=== PATIENT | female | born 1955 | race Caucasian/White ===

== ENCOUNTER → 2018-05-07 11:08 | Outpatient (CLI) | payer BC, SELFPAY ==
--- NOTE | 2018-05-07 11:22 | EKG12_ITS ---
Test Reason : PRE-OP Blood Pressure : / mmHG Vent. Rate : 065 BPM Atrial Rate : 065 BPM P-R Int : 126 ms QRS Dur : 086 ms QT Int : 444 ms P-R-T Axes : 027 008 035 degrees QTc Int : 461 ms Normal sinus rhythm Minimal voltage criteria for LVH, may be normal variant Borderline ECG Confirmed by AMINTA MOORE, SUSAN ([id number]), technical writer and editor GEORGI ISAACS ([id number] on 05/08/2018 3:26:32 PM Referred By: Christophe Loera Confirmed By:SUSAN LEMOS MD
[2018-05-07 12:25] LABS: Hematocrit 42.8 % (37-47); Hemoglobin 14.1 g/dl (12.0-15.0); Mean Corp Hgb Conc 32.9 g/gl (32-36); Mean Corpuscular Hgb 28.5 pg (27.0-32.0); Mean Corpuscular Volume 86.6 fL (81-99); Mean Platelet Vol. 9.2 fl (6.2-12.0); Platelet Count 304 K/mm3 (150-450); RBC Distribution Width CV 12.6 % (11.6-14.6); RBC Distribution Width SD 39.5 fl (35.1-43.9); Red Blood Count 4.94 M/mm3 (4.2-5.4); White Blood Count 7.5 K/mm3 (4.4-11.0)
[2018-05-07 12:29] LABS: Scan Indicated on CBC? Y/N NO
[2018-05-07 12:48] LABS: Anion Gap 8 (5-15); BUN 18 mg/dL (7-18); BUN/Creat Ratio 20.8 RATIO (10-20); Calcium,Total 9.1 mg/dL (8.5-10.1); Chloride 106 mmol/L (98-107); Creatinine, Serum 0.87 mg/dL (0.55-1.02); EST Glomerular Filtration Rate 70 mL/min (>60); Est Glom Filt Rate - Afr Amer 85 mL/min (>60); Glucose 103 mg/dL (74-106); Potassium 4.1 mmol/L (3.5-5.1); Sodium Level 144 mmol/L (136-145)
== END ==
PROVIDERS: Family Provider Family Medicine; PCP Family Medicine; Referring Provider Physician Assistant; Visit Provider Physician Assistant
DX: Z01.818 Encounter for other preprocedural examination (principal); Z01.810 Encounter for preprocedural cardiovascular examination
CPT/HCPCS: 36415; 80048; 85027; 93005

== ENCOUNTER 2018-06-09 18:50 | Emergency (ER) | payer BC, SELFPAY ==
[2018-06-09 18:55] VITALS: BP 158/95; PULSE 96; RESP 15; TEMP 37; O2SAT 95; BMI 32.6
[2018-06-09] MEDS: Cephalexin 250 MG Capsule 500 MG PO (19:12)
--- NOTE | 2018-06-09 19:12 | RAD_ITS ---
STUDY: X-RAY - LEFT HAND REASON FOR EXAM: Female, 63 years old. Puncture wound TECHNIQUE: 3 view(s) of the hand. COMPARISON: None. FINDINGS: Normal radiocarpal articulation. Normal distal radioulnar joint. Normal visualized carpal bones. Normal carpal articulations Normal carpometacarpal articulation of the thumb. Normal second through fifth carpometacarpal joints. Normal metacarpi. Normal metacarpophalangeal joint of the thumb. Normal interphalangeal joint of the thumb. Normal proximal and distal phalanges of the thumb. Normal metacarpophalangeal joints of the second through fifth fingers. Normal proximal interphalangeal joints of the second through fifth fingers. There are mild degenerative changes of the DIP joints. Normal phalanges of the second through fifth fingers. The soft tissue structures are unremarkable. RAD/Hand Min 3 Views IMPRESSION: Mild degenerative changes. No radiopaque foreign body within the soft tissues or acute fracture Electronically Signed: Blaise Rodarte MD at 19:38 EST , Service support ,
--- NOTE | 2018-06-09 19:39 | ED.DCSUM_ITS ---
- ER Visit Summary Date of Service: 06/09/18 Chief Complaint: Left hand pain History of Present Illness: The patient is a [address] Bae. She reports that she was cutting fish and stabbed the palm of her left hand with a paring knife. States that she has a sharp pain 7-10 at worst 4-10 currently. Is worsened by opening. Is relieved by rest. Denies any numbness distally. Her tetanus is up-to-date. Physical Examination: Vitals: Stable. Afebrile. General: Well-nourished and well-developed. Head: Normocephalic atraumatic. Neck: Supple, no lymphadenopathy. No JVD. Nontender. Cardiovascular: Regular rate and rhythm. No murmurs. Respiratory: No respiratory distress. Clear to auscultation bilaterally. Abdominal: Soft, nontender, nondistended, normal bowel sounds. No guarding, rebound, or peritoneal signs. Back: Nontender. Extremities: 1 cm laceration to the palm of her hand. There is no bleeding. She is neurovascular intact. She is able to flex her MCP, PIP, and DIP joints against resistance., no edema. Skin: Normal color, no rash. Neurologic: Alert and oriented ?3. Cranial nerves II through XII are intact. Normal strength and sensation. Psych: Normal affect. Test Results: X-ray shows no acute disease. Emergency Department Course and Treatment: Had a prolonged discussion with patient about treatment options for this. She is opted to let this heal by secondary intention. I do feel that a reasonable course of action. I also discussed with her the risk of infection. Given the location of this and the potential serious etiology of an infection she was given a dose of Keflex. Treatment Plan: Patient be discharged on Keflex. Instructed follow-up Dr. Bae in 2 days for wound check. Return to the emergency department for any worsening symptoms. Disposition: To home in improved and stable condition. Impression: 1. Laceration left palm, 1 cm, not repaired. This note was generated with [employer] software. It may contain incorrect words, spelling, and punctuation that were not noted in review of the chart prior to signing ED Disposition - Plan for ED Patient: Disposition: Home or Assisted Living Instructions: ED Laceration Hand Prescriptions: Cephalexin [Keflex] 500 mg PO Q6 #28 capsule Referrals: Merary Jacobsen MD [Primary Care Provider] - 2 Days for wound check Kaveh Cardona MD [STAFF PHYSICIAN] - 3-5 Days if not improving
== END 2018-06-09 20:36 | disposition home or self-care (01) ==
PROVIDERS: Emergency Provider Emergency Medicine; Family Provider Family Medicine; PCP Family Medicine
DX: S61.412A Laceration without foreign body of left hand, initial encounter (principal); W29.1XXA Contact with electric knife, initial encounter; Y93.89 Activity, other specified; Y92.9 Unspecified place or not applicable; J45.909 Unspecified asthma, uncomplicated
CPT/HCPCS: 73130; 99282

== ENCOUNTER → 2019-01-02 12:05 | Outpatient (CLI) | payer BC, SELFPAY ==
--- NOTE | 2019-01-02 12:08 | RAD_ITS ---
STUDY: X-RAY - RIGHT KNEE REASON FOR EXAM: Recent right knee pain, swelling. TECHNIQUE: 4 view(s) of the knee. COMPARISON: None. FINDINGS: Normal visualized distal femur. Normal visualized proximal tibia and fibula. Normal proximal tibiofibular articulation. Normal medial femorotibial compartment. Normal lateral femorotibial compartment. There are very small marginal osteophytes and mild joint space narrowing of the patellofemoral articulation. There is a small joint effusion. RAD/Knee 4 or More Views IMPRESSION: Mild patellofemoral arthrosis. Small joint effusion. Electronically Signed: Jones Gastelum MD at 12:34 EDT Tel , Service support ,
== END ==
PROVIDERS: Family Provider Family Medicine; PCP Family Medicine; Referring Provider Family Medicine; Visit Provider Family Medicine
DX: M17.11 Unilateral primary osteoarthritis, right knee (principal)
CPT/HCPCS: 73564

== ENCOUNTER 2019-02-20 14:46 | Emergency (ER) | payer BC, SELFPAY ==
[2019-02-20 14:47] VITALS: BP 133/78; PULSE 98; RESP 16; TEMP 36.9; O2SAT 97; BMI 34.0
--- NOTE | 2019-02-20 15:23 | RAD_ITS ---
STUDY: X-RAY - RIGHT KNEE REASON FOR EXAM: Female, 63 years old. Pain along the medial and posterior knee joint following a walk. TECHNIQUE: 4 view(s) of the knee. COMPARISON: Comparison is made with prior study dated December 23, 2018. FINDINGS: Normal visualized distal femur. Normal visualized proximal tibia and fibula. Normal proximal tibiofibular articulation. Normal medial femorotibial compartment. Normal lateral femorotibial compartment. Normal patellofemoral articulation. Tiny joint effusion. RAD/Knee 4 or More Views IMPRESSION: Tiny joint effusion. Electronically Signed: Jett Muñoz, at 15:49 EST , Service support ,
--- NOTE | 2019-02-20 15:24 | ED.DCSUM_ITS ---
- ER Visit Summary Date of Service: 02/20/19 Chief Complaint: Right knee pain History of Present Illness: The patient is a 63 F states that she was walking into work today when she was in full right leg extension during her gait she felt a pop in the posterior aspect of her knee. Since that time she said p ainful weightbearing and ambulation. She denies any swelling. No history of Rothman's cyst. She notes she was told she had some arthritis in the knee. She is seen Dr. Packer in the past for a shoulder surgery. She denies any recent episodes of her knee locking up or pain with squatting/stairs. Physical Examination: Afebrile vital signs stable Gen: Well-nourished well-developed Head: Normocephalic atraumatic Eyes: Perrl EOMI ENT: TMs clear no rhinorrhea moist mucous membranes Neck: Supple no lymphadenopathy no JVD nontender CVS: Regular rate rhythm no murmurs normal S1-S2 Respiratory: No distress clear to auscultation bilaterally chest nontender Abdomen: Soft nontender nondistended normal bowel sounds no masses Back: Nontender Extremity: There is no joint effusion. No pain with ligamentous testing. She has some mild tenderness to palpation the posterior medial aspect of the knee. There is no significant swelling/cyst that I can appreciate. Skin: Normal color no rash Neuro: alert orientated ?3 CN II-XII intact normal strength sensation reflexes gait cerebellar Psych: Normal affect normal mood Emergency Department Course and Treatment: Knee films were obtained. It was read by radiology as a small joint effusion. There is a small well-rounded piece of bone in the posterior aspect. At this point patient has a brace at home that she has worn in the past. I will let her use that along with ice and anti-inflammatories. Pain is persisting more than 10 to 14 days she should follow-up with Dr. Packer. Impression: 1. Right knee pain This note was generated with [employer] dictation software. It may contain incorrect words, spelling, and punctuation that were not noted in review of the chart prior to signing ED Disposition - Plan for ED Patient: Disposition: Home or Assisted Living Instructions: KNEE PAIN, Uncertain Cause Referrals: Gopi Packer, [STAFF PHYSICIAN] - 10-14 Days if not better
[2019-02-20 16:21] VITALS: BP 152/77; PULSE 61; RESP 17; O2SAT 96
== END 2019-02-20 16:24 | disposition home or self-care (01) ==
PROVIDERS: Emergency Provider Emergency Medicine; Family Provider Family Medicine; PCP Family Medicine
DX: M25.561 Pain in right knee (principal)
CPT/HCPCS: 73564; 99283

== ENCOUNTER → 2019-04-30 12:46 | Outpatient (CLI) | payer BC, MEDICARE, SELFPAY ==
--- NOTE | 2019-04-30 13:15 | EKG12_ITS ---
Test Reason : PREOP Blood Pressure : / mmHG Vent. Rate : 076 BPM Atrial Rate : 076 BPM P-R Int : 144 ms QRS Dur : 086 ms QT Int : 418 ms P-R-T Axes : 062 041 048 degrees QTc Int : 470 ms Normal sinus rhythm Normal ECG Confirmed by DOMINGO MOORE, ALEX ([id number]), editor house organ NENA BOB ([id number]) on 05/01/2019 2:19:09 PM Referred By: Alexsandra Schaffer Confirmed By:JACQUES LANE MD
--- NOTE | 2019-04-30 13:28 | RAD_ITS ---
STUDY: X-RAY CHEST REASON FOR EXAM: Female, 63 years old. H/O OF ASTHMA. CHECK BEFORE SURGERY ON THE . TECHNIQUE: Frontal and lateral views of the chest. COMPARISON: 03/27/2013 FINDINGS: The lungs are clear and expanded. There is no demonstrated pleural abnormality. Normal size heart. Normal mediastinum and griffin. Normal visualized pulmonary arteries. Normal visualized aortic arch and descending thoracic aorta. Normal visualized thoracic spine. Normal visualized ribs, clavicles, and shoulders. There is no demonstrated abnormality of the visualized soft tissue structures of the upper abdomen. RAD/Chest PA and Lateral IMPRESSION: Normal x-ray examination of the chest. Electronically Signed: Jericho Jaimes MD at 0:42 EST Tel , Service support ,
[2019-04-30 13:31] LABS: Absolute Lymphocyte Count 1.62 X10^3/uL (0.83-4.51); Absolute Neutrophil Count 4.1 X10^3/uL (2.0-7.7); Basophil# 0.04 X10^3/uL; Basophil% 0.6 % (0-1); Eosinophil# 0.53 X10^3/uL; Eosinophils% 7.9 % (0-5); Hematocrit 39.7 % (37-47); Hemoglobin 12.9 g/dL (12.0-15.0); Lymphocyte # 1.62 X10^3/ul (4.0); Lymphocyte % 24.1 % (19-41); Mean Corp Hgb Conc 32.5 g/dL (32-36); Mean Corpuscular Hgb 28.3 pg (27.0-32.0); Mean Corpuscular Volume 87.1 fL (81-99); Mean Platelet Vol. 8.7 fl (6.2-12.0); Monocyte# 0.45 X10^3/uL; Monocyte% 6.7 % (0-10); NRBC Flagged by Analyzer 0 % (0-5); Neutrophil # 4.05 X10^3/uL (2.7-7.7); Neutrophil % 60.1 % (47-70); Platelet Count 257 K/mm3 (150-450); RBC Distribution Width CV 12.4 % (11.6-14.6); RBC Distribution Width SD 39.7 fl (35.1-43.9); Red Blood Count 4.56 M/mm3 (4.2-5.4); White Blood Count 6.7 K/mm3 (4.4-11.0)
[2019-04-30 13:50] LABS: Anion Gap 5 (5-15); BUN 17 mg/dL (7-18); BUN/Creat Ratio 17.1 RATIO (10-20); Calcium,Total 9.1 mg/dL (8.5-10.1); Chloride 108 mmol/L (98-107); EST Glomerular Filtration Rate 60 mL/min (>60); Est Glom Filt Rate - Afr Amer 72 mL/min (>60); Glucose 119 mg/dL (74-106); Potassium 3.9 mmol/L (3.5-5.1); Sodium Level 141 mmol/L (136-145)
== END ==
PROVIDERS: PCP Family Medicine; Referring Provider Registered Nurse; Visit Provider Registered Nurse
DX: Z01.818 Encounter for other preprocedural examination (principal); Z01.810 Encounter for preprocedural cardiovascular examination
CPT/HCPCS: 36415; 71046; 80048; 85025; 93005

== ENCOUNTER 2019-08-22 18:34 | Emergency (ER) | payer BC, MEDICARE, SELFPAY ==
[2019-08-22 18:36] VITALS: BP 152/64; PULSE 124; RESP 17; TEMP 36.6; O2SAT 97; BMI 30.8
--- NOTE | 2019-08-22 18:58 | EKG12_ITS ---
Test Reason : SOB Blood Pressure : / mmHG Vent. Rate : 109 BPM Atrial Rate : 109 BPM P-R Int : 142 ms QRS Dur : 092 ms QT Int : 338 ms P-R-T Axes : 059 015 058 degrees QTc Int : 455 ms Sinus tachycardia with occasional Premature ventricular complexes Nonspecific ST and T wave abnormality Abnormal ECG Confirmed by RIZWAN MOORE, SHO ([id number]), associate entertainment editor GEORGI ISAACS ([id number]) on 08/25/2019 3:22:40 PM Referred By: JOHN/AUDREY Confirmed By:SHO ASTORGA MD
--- NOTE | 2019-08-22 19:06 | RAD_ITS ---
STUDY: X-RAY CHEST REASON FOR EXAM: Female, 64 years old. INCREASING COUGH AND SHORTNESS OF BREATH TECHNIQUE: Single frontal view of the chest. COMPARISON: 04/30/2019 FINDINGS: The lungs are clear and expanded. There is no demonstrated pleural abnormality. Normal size heart. Normal mediastinum and griffin. Normal visualized pulmonary arteries. Normal visualized aortic arch and descending thoracic aorta. Normal visualized thoracic spine. Normal visualized ribs, clavicles, and shoulders. There is no demonstrated abnormality of the visualized soft tissue structures of the upper abdomen. RAD/Chest 1 View (Portable) IMPRESSION: Normal x-ray examination of the chest. Electronically Signed: Jericho Jaimes MD at 19:52 EDT Tel , Service support ,
[2019-08-22] MEDS: Acetaminophen 500 MG Tablet 1000 MG PO (19:17)
[2019-08-22 19:18] VITALS: O2SAT 96
[2019-08-22] MEDS: 0.9% Normal Saline 1,000 ML 125 ML IV (19:18)
[2019-08-22 19:28] LABS: Absolute Lymphocyte Count 0.91 X10^3/uL (0.83-4.51); Absolute Neutrophil Count 11.9 X10^3/uL (2.0-7.7); Basophil# 0.03 X10^3/uL; Basophil% 0.2 % (0-1); Eosinophil# 0.08 X10^3/uL; Eosinophils% 0.6 % (0-5); Hematocrit 39.3 % (37-47); Hemoglobin 13.1 g/dL (12.0-15.0); Lymphocyte # 0.91 X10^3/ul (4.0); Lymphocyte % 6.3 % (19-41); Mean Corp Hgb Conc 33.3 g/dL (32-36); Mean Corpuscular Hgb 28.4 pg (27.0-32.0); Mean Corpuscular Volume 85.1 fL (81-99); Mean Platelet Vol. 9.1 fl (6.2-12.0); Monocyte# 1.37 X10^3/uL; Monocyte% 9.6 % (0-10); NRBC Flagged by Analyzer 0 % (0-5); Neutrophil # 11.89 X10^3/uL (2.7-7.7); Neutrophil % 82.9 % (47-70); Platelet Count 210 K/mm3 (150-450); RBC Distribution Width SD 39.9 fl (35.1-43.9); Red Blood Count 4.62 M/mm3 (4.2-5.4); White Blood Count 14.3 K/mm3 (4.4-11.0)
[2019-08-22 19:31] VITALS: BP 121/75; PULSE 111; RESP 20; TEMP 37.3; O2SAT 95
[2019-08-22 19:45] LABS: ALB/GLOB Ratio 0.9 RATIO (0.9-2.4); AST(SGOT) 27 U/L (15-37); Alanine Aminotransfer ALT/SGPT 26 U/L (13-56); Albumin, Serum 3.7 g/dL (3.2-5.0); Alkaline Phosphatase 105 U/L (45-117); Anion Gap 6 (5-15); BUN 18 mg/dL (7-18); BUN/Creat Ratio 11.8 RATIO (10-20); Calcium,Total 9.2 mg/dL (8.5-10.1); Chloride 106 mmol/L (98-107); Creatinine, Serum 1.52 mg/dL (0.55-1.02); EST Glomerular Filtration Rate 36 mL/min (>60); Est Glom Filt Rate - Afr Amer 44 mL/min (>60); Estimated Creatinine Clearance 30.52 ml/min; Globulin 4.3 g/dL (2.2-4.2); Glucose 129 mg/dL (74-106); Lactic Acid 1.7 mmol/L (0.4-1.9); Potassium 3.5 mmol/L (3.5-5.1); Sodium Level 137 mmol/L (136-145)
--- NOTE | 2019-08-22 20:02 | ED.VISSUMM ---
- ER Visit Summary Date of Service: 08/22/19 Chief Complaint: Cough and shortness of breath History of Present Illness: The patient is a [address] Jacobsen. She works at the [employer] in [place]. She has coworkers that tested positive for COVID-19. Reports he has cough and shortness of breath began 2 days ago. States that she does have a history of asthma. Shortness of breath is mild currently. It is severe at worst. Is worsened by exertion or coughing. She is used her MDI and nebulizer with minimal relief. Patient reports she is had a fever to 101 degrees. She denies sore throat or chest pain. States that she has a headache only when she coughs. She also complains of generalized weakness. Physical Examination: Vitals: Stable. Afebrile. General: Well-nourished and well-developed. Head: Normocephalic atraumatic. Neck: Supple, no lymphadenopathy. No JVD. Nontender. Cardiovascular: Regular rate and rhythm. No murmurs. Respiratory: No respiratory distress. Minimal wheezing bilaterally with good air movement. Abdominal: Soft, nontender, nondistended, normal bowel sounds. No guarding, rebound, or peritoneal signs. Back: Nontender. Extremities: Nontender, no edema. Skin: Normal color, no rash. Neurologic: Alert and oriented ?3. Cranial nerves II through XII are intact. Normal strength and sensation. Psych: Normal affect. Test Results: EKG is sinus tach at [address] changes. Troponin is negative. LFTs are marked for a globulin 4.3 and a total bili 1.5. Lactic acid is 1.7. Chem-7 shows a creatinine 1.52 glucose 129. CBC shows a white count of 14.3 with 83 segmented neutrophils and 6 lymphocytes. Chest x-ray shows no acute disease. Emergency Department Course and Treatment: Patient is resting comfortably her pulse ox is 97% on room air. She feels well and would like to go home. She is treated the dose of prednisone and Zithromax here. Treatment Plan: Had a prolonged scratch the patient that I suspect that she does have COVID-19. She is instructed to quarantine for the next 2 weeks. However, with her history of asthma and wheezing that is unrelieved by her nebulizer she will be placed on prednisone. Instructed to follow-up with Dr. Jacobsen in 10 to 14 days if not improving. Return to the emergency department for worsening difficulty breathing or any other concerns. Disposition: To home in improved and stable condition. Impression: 1. URI. 2. Asthma. 3. Suspected COVID-19 infection. This note was generated with [employer] dictation software. It may contain incorrect words, spelling, and punctuation that were not noted in review of the chart prior to signing ED Disposition - Plan for ED Patient: Disposition: Home or Assisted Living Instructions: ED Upper Resp Infec Abx Tx Prescriptions: Prednisone [Deltasone] 40 mg PO DAILY #10 tab Prescription Printed Azithromycin [Zithromax] 250 mg PO DAILY #4 tab Prescription Printed Referrals: Merary Jacobsen MD [Primary Care Provider] - 10-14 Days if not better
[2019-08-22] MEDS: predniSONE 20 MG Tablet 60 MG PO (20:21)
[2019-08-22] MEDS: Azithromycin 250 MG Tablet 500 MG PO (20:21)
[2019-08-22 20:23] VITALS: BP 119/71; PULSE 102; RESP 17; TEMP 37; O2SAT 96
--- NOTE | 2019-08-22 20:30 | ED.RN ---
called rosalie per request to update him.
== END 2019-08-22 20:30 | disposition home or self-care (01) ==
LOC: ED 18:56
PROVIDERS: Emergency Provider Emergency Medicine; PCP Family Medicine
DX: J06.9 Acute upper respiratory infection, unspecified (principal); J45.909 Unspecified asthma, uncomplicated; Z20.828 Contact with and (suspected) exposure to other viral communicable diseases
CPT/HCPCS: 71045; 80053; 83605; 84484; 85025; 87040; 87633; 87635; 93005; 96360; 99285; G2023; J7030; U0002

== ENCOUNTER 2020-02-07 22:22 | Emergency (ER) | payer BC, MEDICARE, SELFPAY ==
[2020-02-07 22:23] VITALS: BP 151/87; PULSE 92; RESP 16; TEMP 36.4; O2SAT 98; BMI 34.2
--- NOTE | 2020-02-07 22:33 | ED.VIS.GEN ---
History of Present Illness Chief Complaint: Upper Extremity Injury Informant: Patient Narrative: Presents with left shoulder injury. She was at work working at [email or web address]. She was moving a pallet cora holding it from behind. She felt some burning and pain in her left shoulder acutely. Happened just prior to arrival. Stated that she had rotator cuff repaired on the opposite shoulder remotely. No home treatment. Current severity is mild. Worse by movement. Wanted to make sure that she did not break anything or tear her rotator cuff. Past Medical History - Allergies and Home Meds Allergies/Adverse Reactions: Allergies aspirin Allergy (Verified 02/07/20 22:23) Swelling amoxicillin Adverse Reaction (Verified 02/07/20 22:23) Other erythromycin base Adverse Reaction (Verified 02/07/20 22:23) Nausea/Vom/Diarrhea levofloxacin [From Levaquin] Adverse Reaction (Verified 02/07/20 22:23) Other sulfamethoxazole [From Bactrim] Adverse Reaction (Verified 02/07/20 22:23) Other trimethoprim [From Bactrim] Adverse Reaction (Verified 02/07/20 22:23) Other Primary Care Physician: Merary Jacobsen MD [Primary Care Provider] - Prior records reviewed: Yes Past Medical History: - - See problem list Surgical History: - - Shoulder right Smoking Status: Never smoker Alcohol: None Drugs: None Review of Systems General: Denies: Chills, Fever, Sweats Eyes: Denies: Visual changes - bilaterally, Diplopia ENT: Denies: Rhinorrhea, Sore throat Cardiovascular: Denies: Chest pain, Palpitations Respiratory: Denies: Dyspnea, Cough, Dyspnea on exertion Gastrointestinal: Denies: Abdominal pain, Nausea, Vomiting, Diarrhea, Melena, Hematochezia Genitourinary: Denies: Dysuria, Hematuria, Frequency Musculoskeletal: Reports: Extremity Pain. Denies: Back pain Skin: Denies: Rash, Wounds Neurological: Denies: Headache, Weakness, Numbness Physical Exam Vital Signs/Narrative: Vital Signs Temp Pulse Resp BP Pulse Ox 02/07/20 22:23 97.6 F L 92 16 151/87 H 98 General: Well nourished, Well developed, No Acute Distress Head: Normocephalic, Atraumatic Eyes: Perrl, EOMI ENT: Moist mucous membranes, No rhinorrhea Neck: Supple, Nontender Cardiovascular: Regular rate, Regular rhythm, No murmurs Respiratory: No distress, CTA bilaterally, Chest nontender Abdomen: Soft, Nontender, Nondistended, Normal bowel sounds Back: Nontender, Normal Inspection Extremities: Nontender, No edema, Tenderness - Tenderness in the left anterior shoulder diffusely. Mild in nature. Mild decreased range of motion secondary to pain. Distal neurovascular intact. Skin: Normal color, No rash Neurological: Alert, Oriented x3, Cranial nerves II-XII grossly intact, Normal Strength, Normal Sensation Psychological: Normal affect, Normal Mood Diagnostic/Tx/Re-eval - Medical Decision Making Patient did not want a thing for pain. X-ray of the left shoulder obtained holding weight to stress the AC joint. xray of the left shoulder negative for fracture or abnormality. At this time patient will be placed in a sling. She will follow-up as an outpatient for persistent pain and evaluation by Worker's Comp. Will take anti-inflammatories and rest and ice. Understands she could have a ligament or tendon issue that is not being seen on x-ray and may need further outpatient studies including possible MRI. ED Disposition - Plan for ED Patient: Disposition: Home or Assisted Living Diagnosis: Injury of left shoulder Instructions: ED Shoulder Sprain Referrals: Get Vines MD [STAFF PHYSICIAN] - Additional Instructions: Follow-up with your Worker's Compensation physician for reevaluation
--- NOTE | 2020-02-07 22:38 | RAD_ITS ---
STUDY: X-RAY - LEFT SHOULDER REASON FOR EXAM: Female, 64 years old. arrives to ed with left shoulder pain after pulling a pallet at work. -- PAIN OVER A-C JOINT AREA. TECHNIQUE: 3 view(s) of the shoulder. COMPARISON: None. FINDINGS: Normal glenohumeral articulation. Normal acromioclavicular joint. Normal acromion. Normal humeral head and visualized proximal humerus. The soft tissue structures are unremarkable. Normal visualized pulmonary apex. RAD/Shoulder min 2 Views IMPRESSION: Normal x-ray examination of the shoulder. Electronically Signed: Jericho Jaimes MD at 22:57 EST Tel , Service support ,
[2020-02-07 23:10] VITALS: RESP 16; O2SAT 98
== END 2020-02-07 23:11 | disposition home or self-care (01) ==
PROVIDERS: Emergency Provider Emergency Medicine; PCP Family Medicine
DX: S49.92XA Unspecified injury of left shoulder and upper arm, initial encounter (principal); X58.XXXA Exposure to other specified factors, initial encounter; Y93.89 Activity, other specified; Y92.512 Supermarket, store or market as the place of occurrence of the external cause; Y99.0 Civilian activity done for income or pay
CPT/HCPCS: 73030; 99282

== ENCOUNTER → 2020-06-22 15:29 | Outpatient (CLI) | payer BC, MEDICARE, SELFPAY ==
[2020-06-22 14:14] VITALS: BMI 33.6
== END ==
PROVIDERS: PCP Family Medicine; Referring Provider Internal Medicine Cardiovascular Disease; Visit Provider Internal Medicine Cardiovascular Disease
DX: Z00.00 Encounter for general adult medical examination without abnormal findings (principal)

== ENCOUNTER → 2020-06-29 09:49 | Outpatient (CLI) | payer BC, MEDICARE, SELFPAY ==
[2020-06-22 14:14] VITALS: BMI 33.6
--- NOTE | 2020-06-29 09:53 | ECHOD_ITS ---
Reason For Study: VTACH Procedure This was a 2D Doppler, Color Flow transthoracic echocardiogram. Exam performed in department. Left Ventricle Normal size and thickness. The estimated ejection fraction is 35 %. Stage 2 diastolic dysfunction. There is moderate global hypokinesis of the left ventricle. Right Ventricle Normal RV size. Normal systolic function. Atria Normal left atrium. Normal right atrium. Mitral Valve Moderate focal mitral valve calcification, bileaflet. Mild (1+) eccentric mitral valve insufficiency. Tricuspid Valve Normal tricuspid valve. Mild tricuspid valve insufficiency. Pulmonary artery systolic pressure is 26 mmHg. Aortic Valve Trisinus/trileaflet aortic valve. Pulmonic Valve Normal pulmonic valve. Great Vessels Normal aortic root. The pulmonary artery is normal size. Normal inferior vena cava. Pericardium/Pleural No pericardial effusion. MMode/2D Measurements & Calculations LVIDd: 5.3 cm IVSd: 0.77 cm Ao root diam: 3.3 cm LVIDs: 4.2 cm LVPWd: 0.97 cm RVDd: 2.6 cm FS: 19.2 % LAV(MOD-sp4): 45.9 ml LA A4 area: 16.4 cm2 LA dimension(2D): 3.6 cm RA A4 area: 10.1 cm2 Time Measurements MV dec time: 0.21 sec Doppler Measurements & Calculations MV E max ramírez: 102.6 cm/sec Lat Peak E' Ramírez: 7.9 cm/sec Med Peak E' Ramírez: 5.0 cm/sec MV A max ramírez: 135.4 cm/sec E/E' lat: 13.0 E/E' med: 20.4 MV E/A: 0.76 MV V2 max: 143.0 cm/sec Ao V2 max: 158.4 cm/sec LV V1 max: 94.8 cm/sec MV max P.2 mmHg Ao max P.0 mmHg LV V1 max P.6 mmHg MV V2 mean: 96.4 cm/sec MV mean P.0 mmHg MV V2 VTI: 38.3 cm PA V2 max: 109.6 cm/sec PI end-d ramíerz: 97.4 cm/sec TR max ramírez: 236.3 cm/sec TR max P.3 mmHg MV P1/2t-pr_phl: 95.7 msec Interpretation Summary Normal size and thickness. The estimated ejection fraction is 35 %. Stage 2 diastolic dysfunction. There is moderate global hypokinesis of the left ventricle. The global longitudinal strain is moderately abnormal. The global longitudinal strain = -12.1% (abnormal). Compared to previous study, the left ventricular systolic function has worsened.. Ordering Physician: Jamie Lawson Referring Physician: LORENA JONES Performed By: Sintia Edwards, DEEPTI, RVT
== END ==
PROVIDERS: PCP Family Medicine; Referring Provider Internal Medicine Cardiovascular Disease; Visit Provider Internal Medicine Cardiovascular Disease
DX: I47.2 Ventricular tachycardia (principal); R55 Syncope and collapse
CPT/HCPCS: 93306

== ENCOUNTER 2020-07-04 07:07 | Day surgery (SDC) | payer BC, MEDICARE, SELFPAY ==
[2020-06-22 14:14] VITALS: BMI 33.6
--- NOTE | 2020-06-22 15:41 | RAD_ITS ---
STUDY: X-RAY CHEST REASON FOR EXAM: Female, 65 years old. Cad TECHNIQUE: PA and lateral views of the chest. COMPARISON: Comparison is made with prior study dated 08/22/2019. FINDINGS: The lungs are clear and expanded. Scattered calcified granulomas. There is no demonstrated pleural abnormality. Normal size heart. Normal mediastinum and griffin. Normal visualized pulmonary arteries. Normal visualized aortic arch and descending thoracic aorta. There are diffuse degenerative changes of the visualized thoracic spine. Normal visualized ribs, clavicles, and shoulders. There is no demonstrated abnormality of the visualized soft tissue structures of the upper abdomen. RAD/Chest PA and Lateral IMPRESSION: Scattered calcified granulomas. Electronically Signed: Jett Muñoz MD at 15:45 EDT , Service support ,
[2020-06-22 17:24] LABS: Absolute Lymphocyte Count 1.95 X10^3/uL (0.83-4.51); Absolute Neutrophil Count 6.5 X10^3/uL (2.0-7.7); Basophil# 0.06 X10^3/uL; Basophil% 0.6 % (0-1); Eosinophil# 0.37 X10^3/uL; Eosinophils% 3.8 % (0-5); Hematocrit 42.4 % (37-47); Hemoglobin 13.7 g/dL (12.0-15.0); Lymphocyte # 1.95 X10^3/ul (4.0); Lymphocyte % 20.2 % (19-41); Mean Corp Hgb Conc 32.3 g/dL (32-36); Mean Corpuscular Hgb 27.7 pg (27.0-32.0); Mean Corpuscular Volume 85.7 fL (81-99); Mean Platelet Vol. 9.6 fl (6.2-12.0); Monocyte# 0.72 X10^3/uL; Monocyte% 7.5 % (0-10); NRBC Flagged by Analyzer 0 % (0-5); Neutrophil # 6.51 X10^3/uL (2.7-7.7); Neutrophil % 67.6 % (47-70); Platelet Count 314 K/mm3 (150-450); RBC Distribution Width CV 12.8 % (11.6-14.6); RBC Distribution Width SD 39.6 fl (35.1-43.9); Red Blood Count 4.95 M/mm3 (4.2-5.4); White Blood Count 9.6 K/mm3 (4.4-11.0)
[2020-06-22 18:01] LABS: Anion Gap 5 (5-15); BUN 17 mg/dL (7-18); Calcium,Total 9.2 mg/dL (8.5-10.1); Chloride 108 mmol/L (98-107); Creatinine, Serum 0.85 mg/dL (0.55-1.02); EST Glomerular Filtration Rate 71 mL/min (>60); Est Glom Filt Rate - Afr Amer 86 mL/min (>60); Glucose 89 mg/dL (74-106); Potassium 3.8 mmol/L (3.5-5.1); Sodium Level 140 mmol/L (136-145)
[2020-07-01 08:19] VITALS: BMI 33.6
--- NOTE | 2020-07-04 10:38 | CL.D_ITS ---
Patient Name: STEW BRANDON Study Date: 07/04/2020 Performing: Jamie Lawson MD Ht: 61.02 inches 155 cm : 1955 Wt: 178.57 lbs 81 kg Age: 65 Gender: female BSA: 1.8 PROCEDURE(S) PERFORMED AE07-NGV/COR/LV CLINICAL PROFILE AND INDICATIONS Indications: Cardiac Arrythmia Heart Failure: None Stress/Imaging Stress/Image Study Performed: No CAD Presentations: No Sxs, no angina. CONCLUSIONS Normal coronary arteries Cardiomyopathy: Dilated RECOMMENDATIONS Medical therapy DESCRIPTION OF PROCEDURE The patient arrived to the procedure lab. The risks and benefits of the procedure as well as a full d escription of our services here and current unavailability of surgical backup were fully explained to the patient and/or their significant other prior to the catheterization. The Timeout was completed, verifying the correct patient and procedure. The patient's procedural site was prepped and draped in the usual fashion. Local anesthetic was given subcutaneously to right radial region with Lidocaine 2% . Local anesthetic was given subcutaneously to right ulnar region with Lidocaine 2%. Local anesthetic was given subcutaneously to right groin region with Lidocaine 2%. Using a modified Seldinger techniq ue, arterial access was obtained via the right femoral artery, a 5Fr sheath was inserted. Left Coron saul Artery selective angiography was performed in multiple views using a 5 Fr. JL4 catheter. Right Co ronary Artery selective angiography was then performed in multiple views using a 5 Fr. 3DRC (Evans) catheter. Left Ventriculography was performed in RAND projection using a 5 Fr. Pigtail catheter. LV to AO pullback pressures were then recorded.The arterial sheath was pulled and manual c ompression applied until hemostasis is achieved. CORONARY ANGIOGRAPHY DOMINANCE: Left Dominant LEFT HEART ASSESSMENT Left Ventricular Ejection Fraction: by LV Gram 35 % Global Hypokinesis - Moderate Depressed Left Ventricular systolic function LEFT MAIN: Angiographically normal LEFT ANTERIOR DESCENDING ARTERY: Angiographically normal, Seperate ostium CIRCUMFLEX ARTERY: Angiographically normal COMPLICATIONS No Complications PROCEDURE MEDICATIONS Versed 1 mg IV Fentanyl 50 mcg IV Versed 1 mg IV Plavix 75 mg PO 07/04/2020 07:57:31 SUMMARY OF HEMODYNAMIC DATA Time AIR REST ECG 08:01:52 AO 104/69 (83) SA 10:12:24 LV 112/11, 18 10:25:33 LV 111/10, 18 10:25:40 LV 105/8, 17 10:27:06 LVp 114/3, 18 10:27:13 AOp 113/61 (82) 10:27:18 ECG 10:28:15 Signed By Jamie Lawson MD On 07/04/2020 10:38:11 Jamie Lawson MD
== END 2020-07-04 15:55 | disposition home or self-care (01) ==
LOC: CLSP 07:08
PROVIDERS: PCP Family Medicine; Referring Provider Internal Medicine Cardiovascular Disease; Visit Provider Internal Medicine Cardiovascular Disease
DX: I47.2 Ventricular tachycardia (principal); I42.0 Dilated cardiomyopathy; R55 Syncope and collapse; J45.909 Unspecified asthma, uncomplicated; E66.9 Obesity, unspecified; Z68.33 Body mass index [BMI] 33.0-33.9, adult; Z79.899 Other long term (current) drug therapy
CPT/HCPCS: 36415; 71046; 80048; 85025; 93458; 99152; 99153; J7040; Q9967; C1769; C1894

== ENCOUNTER → 2020-11-16 07:40 | Outpatient (CLI) | payer BC, MEDICARE, SELFPAY ==
[2020-10-12 08:33] VITALS: BMI 34.0
--- NOTE | 2020-11-16 07:44 | CT_ITS ---
STUDY: CT SOFT TISSUE NECK WITH CONTRAST REASON FOR EXAM: Female, 65 years old. Right mass, lower neck RADIATION DOSAGE (If Supplied By Facility): CTDIvol = ( 17.37 ) mGy, DLP = ( 472.88 ) mGycm TECHNIQUE: The patient was scanned in a multi-detector CT scanner. High resolution transaxial imaging was performed following intravenous administration of IV 100mL [id number]-300. Sagittal and coronal images were reconstructed. Individualized dose optimization techniques were used for this CT. COMPARISON: None. FINDINGS: Normal bilateral parotid glands. Normal bilateral referral and information aide spaces. Normal bilateral parapharyngeal spaces. Normal bilateral carotid spaces. Normal bilateral sublingual and submandibular glands and spaces. Normal visualized nasopharynx. Normal retropharyngeal space. Normal perivertebral space. Normal visualized bilateral faucial tonsils. The visualized tongue, tongue base and oropharynx are normal. There are minimally enlarged lymph nodes of the neck, with preservation of normal tala architecture, consistent with a reactive lymph hyperplasia. There is no demonstrated solid or cystic mass lesion. There is no abnormal contrast enhancement. Normal epiglottis, bilateral vallecula and hypopharynx. The pre-epiglottic and paraglottic adipose spaces are normal. Normal visualized bilateral piriform sinuses, aryepiglottic folds, vocal cords, and arytenoid-cricoid articulations. Normal subglottic trachea. Normal bilateral lobes of the thyroid gland. Normal visualized pulmonary apices. Normal visualized paranasal sinuses. There is multilevel degenerative changes of the cervical spine. CT/Soft Tissue Neck WITH Contrast IMPRESSION: Small benign-appearing cervical lymph nodes. No mass is seen. Electronically Signed: Jett Muñoz MD at 8:38 EDT , Service support ,
== END ==
PROVIDERS: PCP Family Medicine; Referring Provider Family Medicine; Visit Provider Family Medicine
DX: R22.1 Localized swelling, mass and lump, neck (principal)
CPT/HCPCS: 70491

== ENCOUNTER → 2021-01-13 15:14 | Outpatient (CLI) | payer BC, MEDICARE, SELFPAY | LOC: MFPLAB 15:16 → LABSPEC 15:17 → MFPLAB 07-18 00:21 | PROVIDERS: PCP Family Medicine; Referring Provider Family Medicine; Visit Provider Family Medicine | DX: Z20.822 Contact with and (suspected) exposure to COVID-19 (principal) | CPT/HCPCS: 87635; U0005; U0003 ==

== ENCOUNTER → 2021-01-24 10:37 | Outpatient (CLI) | payer BC, MEDICARE, SELFPAY ==
[2020-10-12 08:33] VITALS: BMI 34.0
--- NOTE | 2021-01-24 10:40 | ECHOD_ITS ---
Version 2 Reason For Study: CHF Procedure This was a 2D Doppler, Color Flow transthoracic echocardiogram. Exam performed in department. Left Ventricle Normal LV size. Left ventricular systolic function is lower limits of normal. The estimated ejection fraction is 50 %. Stage 1 diastolic dysfunction. No regional wall motion abnormalities noted. Right Ventricle Normal RV size. Normal systolic function. Atria Normal left atrium. Normal right atrium. Mitral Valve Normal mitral valve. Tricuspid Valve Normal tricuspid valve. Mild (1+) tricuspid valve insufficiency. Pulmonary artery systolic pressure is 26 mmHg. Aortic Valve Trisinus/trileaflet aortic valve. Pulmonic Valve Normal pulmonic valve. Great Vessels Normal aortic root. Pericardium/Pleural No pericardial effusion. MMode/2D Measurements & Calculations LVIDd: 5.3 cm IVSd: 0.95 cm LA dimension: 3.8 cm LVIDs: 4.1 cm LVPWd: 1.3 cm FS: 22.1 % LAV(MOD-bp): 46.9 ml LA A4 area: 16.0 cm2 RA A4 area: 13.0 cm2 LAV(MOD-bp) Indexed: 25.6 ml/m2 LAV(MOD-sp2): 52.0 ml LAV(MOD-sp4): 42.0 ml Time Measurements MV dec time: 0.25 sec Doppler Measurements & Calculations MV E max ramírez: 99.3 cm/sec Lat Peak E' Ramírez: 10.3 cm/sec Med Peak E' Ramírez: 6.8 cm/sec MV A max ramírez: 120.6 cm/sec E/E' lat: 9.7 E/E' med: 14.7 MV E/A: 0.82 MV V2 max: 138.7 cm/sec MV P1/2t max ramírez: 122.3 cm/sec Ao V2 max: 163.1 cm/sec MV max P.7 mmHg MV P1/2t: 95.6 msec Ao max P.6 mmHg MV V2 mean: 76.1 cm/sec MV dec slope: 374.7 cm/sec2 MV mean P.8 mmHg MVA(P1/2t): 2.3 cm2 MV V2 VTI: 49.1 cm LV V1 max: 112.5 cm/sec PA V2 max: 123.3 cm/sec TR max ramírez: 234.7 cm/sec LV V1 max P.1 mmHg TR max P.0 mmHg ECHO/Echo Complete Interpretation Summary Normal LV size. Left ventricular systolic function is lower limits of normal. The estimated ejection fraction is 50 %. Stage 1 diastolic dysfunction. Ordering Physician: Margie Bill Referring Physician: Merary Jacobsen M.D. Performed By: Joseph Knowles RCS
== END ==
PROVIDERS: PCP Family Medicine; Referring Provider Physician Assistant Medical; Visit Provider Physician Assistant Medical
DX: I42.8 Other cardiomyopathies (principal); I50.9 Heart failure, unspecified
CPT/HCPCS: 93306

== ENCOUNTER 2021-02-20 23:14 | Emergency (ER) | payer BC, MEDICARE, SELFPAY ==
[2021-02-20 23:15] VITALS: BP 154/96; PULSE 72; RESP 14; TEMP 36.8; O2SAT 97; BMI 34.0
--- NOTE | 2021-02-20 23:35 | RAD_ITS ---
EXAM: XR CHEST, 1 VIEW : 1955 CLINICAL INDICATION: chest pain TECHNIQUE: Frontal view of the chest. This report was created using [employer] report generation technology. COMPARISON: 06/22/20 FINDINGS: LUNGS AND PLEURAL SPACES: Unremarkable. No consolidation or edema. No pneumothorax. No effusion. HEART: Unremarkable. Cardiac silhouette not enlarged. MEDIASTINUM: Central airways and mediastinal contour are unremarkable. BONES/JOINTS: Degenerative changes of the spine. SOFT TISSUES: Unremarkable. RAD/Chest 1 View (Portable) IMPRESSION: No radiographic evidence of acute cardiopulmonary disease. at 0008 Reported and signed by: James Donahue MD Electronically Signed: James Donahue MD at 0:07 EST Tel , Service support ,
--- NOTE | 2021-02-20 23:35 | EKG12_ITS ---
Test Reason : CP Blood Pressure : / mmHG Vent. Rate : 074 BPM Atrial Rate : 074 BPM P-R Int : 156 ms QRS Dur : 090 ms QT Int : 418 ms P-R-T Axes : 053 034 060 degrees QTc Int : 463 ms Sinus rhythm with occasional Premature ventricular complexes Otherwise normal ECG Confirmed by RIZWAN MOORE, SHO ([id number]), editorial manager EMMANUELLE GONZÁLES ([id number]) on 02/22/2021 10:00:38 AM Referred By: AARON Confirmed By:SHO ASTORGA MD
[2021-02-20 23:49] LABS: Absolute Lymphocyte Count 1.99 X10^3/uL (0.83-4.51); Absolute Neutrophil Count 7.3 X10^3/uL (2.0-7.7); Basophil# 0.06 X10^3/uL; Basophil% 0.6 % (0-1); Eosinophils% 4.7 % (0-5); Hematocrit 37.6 % (37-47); Hemoglobin 12.3 g/dL (12.0-15.0); Lymphocyte # 1.99 X10^3/ul (0.83-4.51); Lymphocyte % 18.5 % (19-41); Mean Corp Hgb Conc 32.7 g/dL (32-36); Mean Corpuscular Hgb 28.2 pg (27.0-32.0); Mean Corpuscular Volume 86.2 fL (81-99); Mean Platelet Vol. 8.8 fl (6.2-12.0); Monocyte# 0.83 X10^3/uL; Monocyte% 7.7 % (0-10); NRBC Flagged by Analyzer 0 % (0-5); Neutrophil # 7.32 X10^3/uL (2.7-7.7); Neutrophil % 68.2 % (47-70); Platelet Count 289 K/mm3 (150-450); RBC Distribution Width CV 12.4 % (11.6-14.6); RBC Distribution Width SD 39.3 fl (35.1-43.9); Red Blood Count 4.36 M/mm3 (4.2-5.4); White Blood Count 10.7 K/mm3 (4.4-11.0)
[2021-02-21 00:07] LABS: Anion Gap 2 (5-15); BUN 23 mg/dL (7-18); BUN/Creat Ratio 22.5 RATIO (10-20); Calcium,Total 9.2 mg/dL (8.5-10.1); Chloride 108 mmol/L (98-107); Creatinine, Serum 1.02 mg/dL (0.55-1.02); EST Glomerular Filtration Rate 58 mL/min (>60); Est Glom Filt Rate - Afr Amer 70 mL/min (>60); Estimated Creatinine Clearance 42.91 ml/min; Glucose 111 mg/dL (74-106); Potassium 4.2 mmol/L (3.5-5.1); Sodium Level 138 mmol/L (136-145); Troponin-I HS 8 pg/mL (3.0-54.0)
[2021-02-21 00:14] VITALS: BP 149/80; PULSE 65; RESP 13; O2SAT 94
--- NOTE | 2021-02-21 00:53 | EDS_ITS ---
HPI History of Present Illness Chief Complaint: Chest Pain Informant: patient Onset/Context/Timing Onset: Today Current Severity: Mild Maximum Severity: Moderate Narrative Narrative: Patient presents secondary to 2 episodes of chest pain today. She states she initially got up around 315 this morning with a heaviness in her chest. She actually came to [place] with the intention of coming to the hospital but symptoms abated and she went back home. That episode lasted approximately 3 hours. Patient had recurrent chest pressure tonight at work and lasted approximately 5 hours. She does note some mild shortness of breath but states it is more consistent with her asthma and not out of the ordinary for this time of year. Patient did have a heart cath performed in June of this year. At that time her EF was 35% with normal vessels. A repeat echocardiogram in January of this year revealed her EF up to 50%. She does have a history of nonsustained V. tach. Patient denies palpitations today. [facility] Medical History Asthma Left ventricular diastolic dysfunction Near syncope Non-ischemic cardiomyopathy Nonsustained paroxysmal ventricular tachycardia (04/28/20) Obesity Suspected COVID-19 virus infection (08/2019) Home Medications cholecalciferol (vitamin D3) 1,000 unit PO DAILY 06/09/18 [History Last Taken Unknown] albuterol sulfate 2 puff INHALATION Q4H PRN PRN 08/22/19 [History Last Taken Unknown] albuterol sulfate 2.5 mg INHALATION Q4H PRN PRN 08/22/19 [History Last Taken 07/04/20] ascorbate calcium (vitamin C) 500 mg tablet 500 mg PO QWEEK 06/22/20 [History Last Taken Unknown] carvedilol 12.5 mg tablet 12.5 mg PO BID #180 tab 10/12/20 [Rx Last Taken Unknown] fluticasone 232 mcg-salmeterol 14 mcg/actuation breath activated powdr 1 inh INHALATION BID ea 10/12/20 [History Last Taken Unknown] lisinopril 2.5 mg PO DAILY 02/20/21 [History Last Taken Unknown] Allergy/AdvReac Type Severity Reaction Status Date / Time aspirin Allergy Swelling Verified 02/20/21 23:21 amoxicillin AdvReac Other Verified 02/20/21 23:21 erythromycin base AdvReac Nausea/Vom/ Verified 02/20/21 23:21 Diarrhea levofloxacin [From Levaquin] AdvReac Other Verified 02/20/21 23:21 sulfamethoxazole AdvReac Other Verified 02/20/21 23:21 [From Bactrim] trimethoprim [From Bactrim] AdvReac Other Verified 02/20/21 23:21 john Allergy Severe Anaphylaxis Uncoded 10/12/20 08:54 Family History Mother Heart disease ASD Uncle Heart disease valvular heart disease Surgical History H/O arthroscopic knee surgery History of left heart catheterization (07/04/20) History of repair of rotator cuff History of tubal ligation Social History Smoking Status: Never smoker alcohol intake: never substance use type: does not use caffeine: Yes ROS ROS ED Constitutional Constitutional ED: Denies chills or fever(s) Eyes Eyes: Denies change in vision ENT ENT ED: Denies sore throat Cardiovascular Cardiovascular: Reports chest pain Respiratory/Chest Respiratory/Chest: Reports dyspnea; Denies cough Gastrointestinal Gastrointestinal: Denies abdominal pain, diarrhea, nausea or vomiting Genitourinary Genitourinary ED: Denies dysuria Musculoskeletal Musculoskeletal: Denies back pain Integumentary Denies rash Neurologic Neurologic: Denies headache(s) or weakness Allergic/Immunologic Allergic/Immunologic ED: Denies urticaria EXAM Physical Exam Const Vital Signs: 02/20/21 23:15 02/20/21 23:28 02/21/21 00:14 Temperature 98.2 F Temperature Source Oral Pulse Rate 72 65 Respiratory Rate 14 13 Respiratory Effort Normal Non-Labored Blood Pressure 154/96 H 149/80 H Blood Pressure Mean 115 103 Pulse Ox 97 94 Oxygen Delivery Method Room Air Room Air 02/21/21 00:54 02/21/21 00:57 Temperature Temperature Source Pulse Rate 70 70 Respiratory Rate 16 16 Respiratory Effort Blood Pressure 121/61 H 121/61 H Blood Pressure Mean 81 Pulse Ox 95 95 Oxygen Delivery Method Room Air Positive well nourished and well developed General Appearance ED: well developed HEENT normocephalic and atraumatic Eyes PERRL and EOMs intact bilaterally Neck supple Chest Wall inspection of chest normal and palpation of chest normal Resp normal respiratory effort Effort and Inspection: respiratory distress Cardio regular rate and regular rhythm GI normal to inspection, nondistended, normoactive bowel sounds, soft to palpation and non-tender Extremity normal to inspection Neuro Sensorium / Orientation: awake and alert Psych mental status grossly normal Skin no rashes or lesions noted Heart Score History: Moderately Suspicious ECG: Normal Age: >/= 65 years Risk Factors: No Risk Factors Troponin: </= Normal Limit Score: 3 MDM MDM MDM Narrative Medical decision making narrative: Patient has an allergy to aspirin and this was held. EKG, chest x-ray, lab work obtained. Lab Data Attestation: I reviewed the patient's lab results. Labs: Laboratory Results - last 24 hr 02/20/21 02/20/21 23:44 23:44 WBC 10.7 RBC 4.36 Hgb 12.3 Hct 37.6 MCV 86.2 MCH 28.2 MCHC 32.7 RDW Std Deviation 39.3 RDW Coeff of Rebekah 12.4 Plt Count 289 MPV 8.8 Immature Gran % (Auto) 0.300 Neut % (Auto) 68.2 Lymph % (Auto) 18.5 L Andrew % (Auto) 7.7 Eos % (Auto) 4.7 Baso % (Auto) 0.6 Absolute Neuts (auto) 7.3 Absolute Lymphs (auto) 1.99 Nucleated RBC % 0 Sodium 138 Potassium 4.2 Chloride 108 H Carbon Dioxide 28.0 Anion Gap 2 L BUN 23 H Creatinine 1.02 Estim Creat Clear Calc 42.91 Est GFR (MDRD) Af Amer 70 Est GFR (MDRD) Non-Af 58 L BUN/Creatinine Ratio 22.5 H Glucose 111 H Calcium 9.2 Troponin I High Sens 8 Radiography Chest X-Ray - ED: 1 View, Read by ED Physician and Chronic Changes Diagnostic Testing: Clinical Impression(s) from Imaging Studies Chest X-Ray 02/20/21 23:35 IMPRESSION: No radiographic evidence of acute cardiopulmonary disease. at 0008 Reported and signed by: James Donahue MD Electronically Signed: James Donahue MD at 0:07 EST Tel , Service support , EKG Initial EKG: Attestation: I personally reviewed and interpreted this EKG as follows: Interpretation: Sinus Rhythm (Sinus at 74 with occasional PVCs.) Treatment and Re-Evaluation Comments:: On repeat evaluation patient resting comfortably. No significant arrhythmias noted on cardiac monitoring throughout her ED stay. Lab work unremarkable with a troponin of 8 with several hours of pain. Catheterization earlier this month showed no vessel disease. I do not believe patient needs to stay in the hospital for further cardiac work-up. Return instructions are provided. Patient is comfortable with this plan. Discharge Plan Triage Chief Complaint: Chest Pain ED Provider: Georgette Ricketts Dx/Rx/DC Orders Clinical Impression: Chest pain Instructions: ED Chest Pain, Uncertain Cause Prescriptions: No Action ascorbate calcium (vitamin C) 500 mg tablet 500 mg PO QWEEK RF: 0 fluticasone propion-salmeterol 232-14 mcg/actuation aerosol powdr breath activated 1 inh inhalation BID RF: 0 carvedilol 12.5 mg tablet 12.5 mg PO BID Qty: 180 RF: 3 cholecalciferol (vitamin D3) 1,000 UNIT tablet 1,000 unit PO DAILY RF: 0 albuterol sulfate 2.5 MG/3 ML solution for nebulization 2.5 mg INHALATION Q4H PRN PRN (Reason: Wheezing) RF: 0 albuterol sulfate 1 INHALER inhaler 2 puff INHALATION Q4H PRN PRN (Reason: Wheezing) RF: 0 lisinopril 5 mg tablet 2.5 mg PO DAILY RF: 0 Primary Care Provider: Merary Jacobsen Referrals: Merary Jacobsen MD [Primary Care Provider] - 3-5 Days if not improving Genaro Pickard MD [STAFF PHYSICIAN] - 1 Week if not improving Disposition Disposition: Home, Self Care Discharge Date/Time: 02/21/21 01:04
[2021-02-21 00:54] VITALS: BP 121/61; PULSE 70; RESP 16; O2SAT 95
[2021-02-21 00:57] VITALS: BP 121/61; PULSE 70; RESP 16; O2SAT 95
== END 2021-02-21 01:04 | disposition home or self-care (01) ==
PROVIDERS: Emergency Provider Emergency Medicine; PCP Family Medicine
DX: R07.9 Chest pain, unspecified (principal); I47.2 Ventricular tachycardia; J45.909 Unspecified asthma, uncomplicated; E66.9 Obesity, unspecified; Z68.34 Body mass index [BMI] 34.0-34.9, adult; Z79.51 Long term (current) use of inhaled steroids; Z79.899 Other long term (current) drug therapy; Z82.49 Family history of ischemic heart disease and other diseases of the circulatory system
CPT/HCPCS: 71045; 80048; 84484; 85025; 93005; 99285

== ENCOUNTER → 2021-11-15 | Outpatient (CLI) | payer BC, MEDICARE, SELFPAY ==
[2021-11-15 17:43] LABS: Absolute Lymphocyte Count 1.23 X10^3/uL (0.83-4.51); Absolute Neutrophil Count 4.9 X10^3/uL (2.0-7.7); Basophil# 0.03 X10^3/uL; Basophil% 0.4 % (0-1); Eosinophil# 0.13 X10^3/uL; Eosinophils% 1.8 % (0-5); Hematocrit 33.4 % (37-47); Hemoglobin 11.2 g/dL (12.0-15.0); Lymphocyte # 1.23 X10^3/ul (0.83-4.51); Lymphocyte % 17.3 % (19-41); Mean Corp Hgb Conc 33.5 g/dL (32-36); Mean Corpuscular Volume 83.5 fL (81-99); Mean Platelet Vol. 9.4 fl (6.2-12.0); Monocyte# 0.78 X10^3/uL; NRBC Flagged by Analyzer 0 % (0-5); Neutrophil # 4.89 X10^3/uL (2.7-7.7); Neutrophil % 68.9 % (47-70); Platelet Count 349 K/mm3 (150-450); RBC Distribution Width SD 39.4 fl (35.1-43.9); White Blood Count 7.1 K/mm3 (4.4-11.0)
== END | disposition home or self-care (01) ==
PROVIDERS: PCP Family Medicine; Referring Provider Family Medicine; Visit Provider Family Medicine
DX: R19.7 Diarrhea, unspecified (principal)
CPT/HCPCS: 36415; 85025

== ENCOUNTER → 2021-11-17 | Outpatient (CLI) | payer BC, MEDICARE, SELFPAY | END | disposition home or self-care (01) | LOC: MTLAB 11-20 08:47 | PROVIDERS: PCP Family Medicine; Referring Provider Family Medicine; Visit Provider Family Medicine | DX: R19.7 Diarrhea, unspecified (principal) | CPT/HCPCS: 87177; 87209; 87493; 87506 ==

== ENCOUNTER → 2021-11-24 | Outpatient (CLI) | payer BC, MEDICARE, SELFPAY ==
--- NOTE | 2021-11-24 16:17 | RAD_ITS ---
INDICATION: SHORTNESS OF BREATH EXAMINATION/TECHNIQUE: X-RAY - XR Chest 2 Views COMPARISON: 02/20/2021. FINDINGS: The lungs are clear. The cardiomediastinal silhouette is unremarkable. No pleural effusion or pneumothorax. Degenerative changes of the thoracic spine. RAD/Chest PA and Lateral IMPRESSION: No acute radiographic abnormalities. Electronically Signed: Dean Samaniego MD at 21:33 EDT ,
== END | disposition home or self-care (01) ==
LOC: MTRAD 16:16
PROVIDERS: PCP Family Medicine; Referring Provider Family Medicine; Visit Provider Family Medicine
DX: R06.02 Shortness of breath (principal)
CPT/HCPCS: 71046

== ENCOUNTER 2021-11-29 14:26 | Inpatient (IN) | payer BC, MEDICARE, SELFPAY ==
[2021-11-29] VITALS (12 sets, daily range): BP systolic 83–94; BP diastolic 41–52; PULSE 62–77; RESP 15–19; TEMP 36.2–36.7; O2SAT 96–100; BMI 31.1; BMI 31.8
--- NOTE | 2021-11-29 15:09 | EKG12_ITS ---
Test Reason : BRADYCARDIA Blood Pressure : / mmHG Vent. Rate : 065 BPM Atrial Rate : 065 BPM P-R Int : 132 ms QRS Dur : 092 ms QT Int : 430 ms P-R-T Axes : -01 007 035 degrees QTc Int : 447 ms Normal sinus rhythm Minimal voltage criteria for LVH, may be normal variant ( R in aVL ) Borderline ECG Confirmed by DOMINGO MOORE, ALEX ([id number]), newspaper copy editor EMMANUELLE GONZÁLES ([id number]) on 11/30/2021 1:27:43 PM Referred By: OMAR Confirmed By:JACQUES LANE MD
--- NOTE | 2021-11-29 15:12 | EX.ED.DYSGE1 ---
HPI History of Present Illness Chief Complaint: Hypotension Informant: patient Narrative Narrative: Patient comes in due to to low blood pressure. She states her blood pressures been running low since about the sixth of this month. She was up in [place] for a lobster festival. She felt bad and noticed her blood pressure is low. It has been running down to about 60 systolic. The best she has gotten is 120s. She has decreased energy. She is not having dyspnea or chest pain. She has had some problems with nausea and vomiting. But this seems better now. She had a hamburger today and fried chicken yesterday with no problem. But when she eats she is now getting soft stools. She denies any blood or black in the stools. She is on 2 meds for blood pressure. She has seen her primary physician twice her labor/excavator once and her acreage reporter wants there have been no changes in blood pressure meds during this time. She has seen them for this problem. She evidently just had a cardiac echo today. They sent her down because of low blood pressure. I am calling to try to get results of this to make sure there was nothing else that they saw that was concerning to see if we can have an official read. I did just talk to the engineering specialist technician. She did not notice anything unique or out of normal on the echo. It did not look different than her prior. But she is contacting cardiology to see if they can do an official read. But there is no pericardial effusion or marked abnormality. [facility] Medical History (Updated 11/29/21 @ 23:[address] Hung Rea MD) Asthma Left ventricular diastolic dysfunction Near syncope Non-ischemic cardiomyopathy Nonsustained paroxysmal ventricular tachycardia (04/28/20) Obesity Suspected COVID-19 virus infection (08/2019) Home Medications cholecalciferol (vitamin D3) 25 mcg (1,000 unit) tablet 1,000 unit PO DAILY supplement 06/09/18 [History Last Taken 11/28/21] albuterol sulfate 2.5 mg/3 mL (0.083 %) solution for nebulization 2.5 mg inhalation Q4H PRN PRN Wheezing 08/22/19 [History Last Taken 07/04/20] albuterol sulfate 90 mcg/actuation aerosol inhaler 2 puff inhalation Q4H PRN PRN Wheezing 05/16/20 [History Last Taken 11/27/21] ascorbate calcium (vitamin C) 500 mg tablet 500 mg PO QWEEK supplement 06/22/20 [History Last Taken 11/28/21] fluticasone 232 mcg-salmeterol 14 mcg/actuation breath activated powdr 1 inh inhalation BID SOB 10/12/20 [History Last Taken 11/28/21] lisinopril 10 mg tablet 10 mg PO DAILY #90 tabs 05/16/21 [Rx Last Taken 11/28/21] carvedilol 12.5 mg tablet 12.5 mg PO BID #180 tabs 11/01/21 [Rx Last Taken 11/29/21] Allergy/AdvReac Type Severity Reaction Status Date / Time nettle Allergy Severe Anaphylaxis Verified 11/29/21 14:31 aspirin Allergy Swelling Verified 11/29/21 14:31 amoxicillin AdvReac Other Verified 11/29/21 14:31 erythromycin base AdvReac Nausea/Vom/ Verified 11/29/21 14:31 Diarrhea levofloxacin [From Levaquin] AdvReac Other Verified 11/29/21 14:31 sulfamethoxazole AdvReac Other Verified 11/29/21 14:31 [From Bactrim] trimethoprim [From Bactrim] AdvReac Other Verified 11/29/21 14:31 Family History Mother Heart disease ASD Uncle Heart disease valvular heart disease Surgical History H/O arthroscopic knee surgery History of left heart catheterization (07/04/20) History of repair of rotator cuff History of tubal ligation Social History Smoking Status: Never smoker alcohol intake: never substance use type: does not use caffeine: Yes ROS ROS ED Constitutional Constitutional ED: Denies chills, fever(s), subjective or weight loss Eyes Eyes: Denies change in vision ENT ENT ED: Denies rhinorrhea or sore throat Cardiovascular Cardiovascular: Denies chest pain, palpitations or racing heartbeat Respiratory/Chest Respiratory/Chest: Denies cough or dyspnea Gastrointestinal Gastrointestinal: Reports diarrhea and vomiting; Denies abdominal pain Genitourinary Genitourinary ED: Denies dysuria or hematuria Musculoskeletal Musculoskeletal: Denies arthralgias or myalgias Integumentary Denies rash Neurologic Neurologic: Reports other Details: Patient complains of generalized weakness but nonfocal. ; Denies headache(s) or paresthesias Endocrine Endocrinology: Denies polydipsia or polyuria Hematologic/Lymphatic Hematologic/Lymphatic: Denies anemia, easy bleeding or easy bruising Allergic/Immunologic Allergic/Immunologic ED: Denies urticaria EXAM Physical Exam Const Vital Signs: 11/29/21 14:27 11/29/21 14:30 11/29/21 14:37 Temperature 97.5 F L 97.5 F L Temperature Source Temporal Temporal Pulse Rate 71 71 Respiratory Rate 15 15 Respiratory Effort Normal Non-Labored Respiratory Pattern Normal Blood Pressure 83/49 L 83/49 L Blood Pressure Mean 60 60 Pulse Ox 100 100 Oxygen Delivery Method Room Air Room Air 11/29/21 15:29 11/29/21 16:04 11/29/21 16:41 Temperature 97.2 F L 97.6 F L Temperature Source Oral Oral Pulse Rate 68 62 65 Respiratory Rate 17 19 H 18 Respiratory Effort Respiratory Pattern Blood Pressure 86/47 L 84/47 L 88/50 L Blood Pressure Mean 60 59 62 Pulse Ox 97 98 100 Oxygen Delivery Method Room Air Room Air Room Air Positive well nourished and well developed Constitutional Narrative: Despite her blood pressure, she is wide-awake alert and nontoxic in appearance. She carries on full conversation very easily. General Appearance ED: well developed and NAD HEENT Reports dry mucous membranes HEENT Narrative: Mildly dry mucous membrane Mouth ED: Yes dry mucous membranes Mouth: dry mucous membranes Eyes General Eye ED: Negative for scleral icterus Neck no JVD Chest Wall inspection of chest normal Resp normal respiratory effort and clear to auscultation bilaterally Auscultation: Negative for rales, rhonchi or wheezes Cardio regular rate and regular rhythm Rate: other Other Details: Heart is regular with a rate of about 70-75. No tones are muffled. Peripheral pulses are actually good. GI normal to inspection, nondistended, normoactive bowel sounds and non-tender Auscultation: normoactive bowel sounds Palpation: soft Back/Spine no CVA tenderness Extremity normal to inspection General Extremety ED: Negative for edema or tenderness General Extremity: Negative for edema Neuro oriented x3 Sensorium / Orientation: alert; Negative for lethargic or stuporous Psych mental status grossly normal Skin no rashes or lesions noted MDM MDM MDM Narrative Medical decision making narrative: Patient's blood work shows some low hemoglobin. This is concerning especially in light of the fact that she also appears to be dehydrated. Glucose is up a little bit but this should resolve with fluids. Her lipase is up but she denies having abdominal pain. She states she gets a gassy feeling before bowel movements but other than that no pain or discomfort. She does say that when she was in [place] the day before this started she ate potatoes that tasted like motor oil. Her daughter had them and felt queasy but had no symptoms. This patient has had symptoms starting on the sixth. She has intermittent watery diarrhea. But she denies ever seeing black or blood in this. She has had some nausea and vomiting but that seems to have gotten better and she has been eating the last 2 days. She has been trying to drink fluids but she has had significant diarrhea. I think with her acute kidney injury-creatinine up to 3.4, continued diarrhea, low blood pressure she does need to come in the hospital. Her blood pressure is about the same as it was but she is only got 1/2 L of fluid and at this point. Hospitalist is on page. Lab Data Attestation: I reviewed the patient's lab results. Labs: Laboratory Results - last 24 hr 11/29/21 11/29/21 11/29/21 15:20 15:20 15:20 WBC 7.3 RBC 3.48 L Hgb 9.8 L Hct 29.0 L MCV 83.3 MCH 28.2 MCHC 33.8 RDW Std Deviation 39.7 RDW Coeff of Rebekah 13.1 Plt Count 298 MPV 9.3 Immature Gran % (Auto) 0.500 Neut % (Auto) 78.9 H Lymph % (Auto) 11.5 L [place] % (Auto) 8.2 Eos % (Auto) 0.5 Baso % (Auto) 0.4 Absolute Neuts (auto) 5.8 Absolute Lymphs (auto) 0.84 Nucleated RBC % 0 Sodium 136 Potassium 3.3 L Chloride 102 Carbon Dioxide 27.0 Anion Gap 7 BUN 64 H Creatinine 3.41 H Estim Creat Clear Calc 12.08 Est GFR (MDRD) Af Amer 17 L Est GFR (MDRD) Non-Af 14 L BUN/Creatinine Ratio 18.8 Glucose 143 H Calcium 9.2 Magnesium 2.2 Total Bilirubin 0.50 AST 19 ALT 18 Alkaline Phosphatase 105 Total Protein 7.5 Albumin 2.5 L Globulin 5.0 H Albumin/Globulin Ratio 0.5 L Lipase 729 H Discharge Plan Dx/Rx/DC Orders Clinical Impression: Acute kidney injury, Dehydration, Low blood pressure Disposition Disposition: Acute Care [facility]
[2021-11-29] MEDS: 0.9% Normal Saline 1,000 ML 1000 ML IV (15:27)
[2021-11-29 15:28] LABS: Absolute Lymphocyte Count 0.84 X10^3/uL (0.83-4.51); Absolute Neutrophil Count 5.8 X10^3/uL (2.0-7.7); Basophil# 0.03 X10^3/uL; Basophil% 0.4 % (0-1); Eosinophil# 0.04 X10^3/uL; Eosinophils% 0.5 % (0-5); Hemoglobin 9.8 g/dL (12.0-15.0); Lymphocyte # 0.84 X10^3/ul (0.83-4.51); Lymphocyte % 11.5 % (19-41); Mean Corp Hgb Conc 33.8 g/dL (32-36); Mean Corpuscular Hgb 28.2 pg (27.0-32.0); Mean Corpuscular Volume 83.3 fL (81-99); Mean Platelet Vol. 9.3 fl (6.2-12.0); Monocyte% 8.2 % (0-10); NRBC Flagged by Analyzer 0 % (0-5); Neutrophil # 5.77 X10^3/uL (2.7-7.7); Neutrophil % 78.9 % (47-70); Platelet Count 298 K/mm3 (150-450); RBC Distribution Width CV 13.1 % (11.6-14.6); RBC Distribution Width SD 39.7 fl (35.1-43.9); Red Blood Count 3.48 M/mm3 (4.2-5.4); White Blood Count 7.3 K/mm3 (4.4-11.0)
[2021-11-29 15:46] LABS: ALB/GLOB Ratio 0.5 RATIO (0.9-2.4); AST(SGOT) 19 U/L (15-37); Alanine Aminotransfer ALT/SGPT 18 U/L (13-56); Albumin, Serum 2.5 g/dL (3.2-5.0); Alkaline Phosphatase 105 U/L (45-117); Anion Gap 7 (5-15); BUN 64 mg/dL (7-18); BUN/Creat Ratio 18.8 RATIO (10-20); Calcium,Total 9.2 mg/dL (8.5-10.1); Chloride 102 mmol/L (98-107); Creatinine, Serum 3.41 mg/dL (0.55-1.02); EST Glomerular Filtration Rate 14 mL/min (>60); Est Glom Filt Rate - Afr Amer 17 mL/min (>60); Estimated Creatinine Clearance 12.08 ml/min; Glucose 143 mg/dL (74-106); Lipase 729 U/L (73-393); Potassium 3.3 mmol/L (3.5-5.1); Protein, Total 7.5 g/dL (6.4-8.2); Sodium Level 136 mmol/L (136-145)
--- NOTE | 2021-11-29 16:34 | NURSING ---
DR KARLOS BENZ
--- NOTE | 2021-11-29 16:42 | NURSING ---
112 KORAM NELSON, HYPERTENSION, DEHYDRATION, DIARRHEA
--- NOTE | 2021-11-29 17:09 | HP.PCM.HOS_ITS ---
HPI - General General Date of Admission: 11/29/21 Date of Service: 11/29/21 Chief Complaint: hypotension HPI Narrative STEW BRANDON, is a 66 F with a PMH as outlined who presents via the ED on 11/29/2021 with complaint of weakness and hypotension. Patient states she went up to [place] [id number] developed the festival on November 10, 2021. Since then she has been having diarrhea as well as nausea and vomiting. States diarrhea has persisted since she came back and she is noticed at home that her blood pressure has been running low. She is currently having at least 2-3 episodes of diarrhea every day though the nausea and vomiting has improved. She denies any chest pain, palpitations, dizziness, or shortness of breath. She states she went with her daughter and her daughter has not had any similar episodes of diarrhea. She states apart from the labs that she remembers eating at one restaurant with a potato that was served had a funny taste. She has been taking her blood pressure medications and states she has noticed at home that her blood pressure has been running low. She has seen her well puller and energy economist in the [facility] since she came. She was scheduled to have a 2D echo today and was sent to the ED after she had the echo because of her hypotension. Review of systems otherwise negative. Vitals in the ED showed blood pressure of 88/50, pulse rate of 65 respiratory rate of 18 as well as temperature of 97.6 Fahrenheit. She was saturating at 100% on room air. CBC showed hemoglobin of 9.8 with WBC of 7.3 and platelets of 298. Chemistry showed sodium of 136 with potassium of 3.3 and creatinine of 3.41 with BUN of 64. Baseline creatinine is around 0.8. Lipase was elevated at 729. She does deny any history of alcohol use or smoking. She has been admitted to be managed for hypotension likely due to persistent diarrhea. [facility] Medical History (Updated 11/29/21 @ 17:[address] Afia Regalado MD) Asthma Left ventricular diastolic dysfunction Near syncope Non-ischemic cardiomyopathy Nonsustained paroxysmal ventricular tachycardia (04/28/20) Obesity Suspected COVID-19 virus infection (08/2019) Home Medications cholecalciferol (vitamin D3) 25 mcg (1,000 unit) tablet 1,000 unit PO DAILY supplement 06/09/18 [History Last Taken 11/28/21] albuterol sulfate 2.5 mg/3 mL (0.083 %) solution for nebulization 2.5 mg inhalation Q4H PRN PRN Wheezing 08/22/19 [History Last Taken 07/04/20] albuterol sulfate 90 mcg/actuation aerosol inhaler 2 puff inhalation Q4H PRN PRN Wheezing 08/22/19 [History Last Taken 11/27/21] ascorbate calcium (vitamin C) 500 mg tablet 500 mg PO QWEEK supplement 06/22/20 [History Last Taken 11/28/21] fluticasone 232 mcg-salmeterol 14 mcg/actuation breath activated powdr 1 inh inhalation BID SOB 10/12/20 [History Last Taken 11/28/21] lisinopril 10 mg tablet 10 mg PO DAILY #90 tabs 05/16/21 [Rx Last Taken 11/28/21] carvedilol 12.5 mg tablet 12.5 mg PO BID #180 tabs 11/01/21 [Rx Last Taken 11/29/21] Allergy/AdvReac Type Severity Reaction Status Date / Time nettle Allergy Severe Anaphylaxis Verified 11/29/21 14:31 aspirin Allergy Swelling Verified 11/29/21 14:31 amoxicillin AdvReac Other Verified 11/29/21 14:31 erythromycin base AdvReac Nausea/Vom/ Verified 11/29/21 14:31 Diarrhea levofloxacin [From Levaquin] AdvReac Other Verified 11/29/21 14:31 sulfamethoxazole AdvReac Other Verified 11/29/21 14:31 [From Bactrim] trimethoprim [From Bactrim] AdvReac Other Verified 11/29/21 14:31 Family History Mother Heart disease ASD Uncle Heart disease valvular heart disease Surgical History H/O arthroscopic knee surgery History of left heart catheterization (07/04/20) History of repair of rotator cuff History of tubal ligation Social History Smoking Status: Never smoker alcohol intake: never substance use type: does not use caffeine: Yes ROS Constitutional Constitutional: Reports anorexia, fatigue, malaise and weakness; Denies change in weight, chills or fever(s) Eyes Eyes: Denies change in vision ENT HEENT: Denies dysphagia or headache(s) Cardiovascular Cardiovascular: Denies chest pain, dyspnea on exertion, edema, lightheadedness, orthopnea, palpitations, rapid heart rate or syncope Respiratory/Chest Respiratory/Chest: Denies cough, productive cough or shortness of breath at rest Gastrointestinal Gastrointestinal: Reports diarrhea; Denies abdominal pain, constipation, dyspepsia, hematemesis, hematochezia, loose stools, nausea or vomiting Genitourinary Genitourinary: Denies dysuria Neurologic Neurologic: Denies confusion, focal weakness, headache(s), seizures, syncope or tremor(s) Psychiatric Psychiatric: Denies anxiety Hematologic/Lymphatic Hematologic/Lymphatic: Denies anemia Vital Signs Vital Signs Vital Signs: 11/29/21 14:27 11/29/21 14:30 11/29/21 14:37 Temperature 97.5 F L 97.5 F L Temperature Source Temporal Temporal Pulse Rate 71 71 Respiratory Rate 15 15 Respiratory Effort Normal Non-Labored Respiratory Pattern Normal Blood Pressure 83/49 L 83/49 L Blood Pressure Mean 60 60 Pulse Ox 100 100 Oxygen Delivery Method Room Air Room Air 11/29/21 15:29 11/29/21 16:04 11/29/21 16:41 Temperature 97.2 F L 97.6 F L Temperature Source Oral Oral Pulse Rate 68 62 65 Respiratory Rate 17 19 H 18 Respiratory Effort Respiratory Pattern Blood Pressure 86/47 L 84/47 L 88/50 L Blood Pressure Mean 60 59 62 Pulse Ox 97 98 100 Oxygen Delivery Method Room Air Room Air Room Air Weight Weight: 165 lb Body Mass Index (BMI) 31.1 Physical Exam Const alert, oriented x3 and no apparent distress General Appearance: cooperative HEENT normocephalic, head/scalp atraumatic, hearing grossly normal bilaterally and moist oral mucous membranes Mouth: oral and palatal mucosa normal Eyes PERRL, EOMs intact bilaterally and conjunctivae normal Neck no lymphadenopathy, supple and no JVD Resp normal respiratory effort, no retractions, no use of accessory muscles and clear to auscultation bilaterally Cardio regular rate, regular rhythm, S1 normal heart sound, S2 normal heart sound and no murmurs GI normal to inspection, nondistended, normoactive bowel sounds, soft to palpation, non-tender and non-distended Extremity normal to inspection, full ROM and no clubbing, cyanosis or edema Neuro oriented x3, CN's II-XII intact bilaterally and moves all extremities Sensorium / Orientation: awake, alert and oriented to person Motor Exam: strength 5/5 throughout Psych affect normal Results Lab / Micro Data Result Diagrams: 11/29/21 15:20 11/29/21 15:20 Labs: Laboratory Results - last 24 hr 11/29/21 15:20: WBC 7.3, RBC 3.48 L, Hgb 9.8 L, Hct 29.0 L, MCV 83.3, MCH 28.2, MCHC 33.8, RDW Std Deviation 39.7, RDW Coeff of Rebekah 13.1, Plt Count 298, MPV 9.3, Immature Gran % (Auto) 0.500, Neut % (Auto) 78.9 H, Lymph % (Auto) 11.5 L, [place] % (Auto) 8.2, Eos % (Auto) 0.5, Baso % (Auto) 0.4, Absolute Neuts (auto) 5.8, Absolute Lymphs (auto) 0.84, Nucleated RBC % 0 11/29/21 15:20: Sodium 136, Potassium 3.3 L, Chloride 102, Carbon Dioxide 27.0, Anion Gap 7, BUN 64 H, Creatinine 3.41 H, Estim Creat Clear Calc 12.08, Est GFR (MDRD) Af Amer 17 L, Est GFR (MDRD) Non-Af 14 L, BUN/Creatinine Ratio 18.8, Glucose 143 H, Calcium 9.2, Total Bilirubin 0.50, AST 19, ALT 18, Alkaline Phosphatase 105, Total Protein 7.5, Albumin 2.5 L, Globulin 5.0 H, Albumin/Globulin Ratio 0.5 L, Lipase 729 H Assessment & Plan Assessment/Plan (1) Diarrhea: PLAN: Plan #Hypotension * likely due to persistent diarrhea and exacerbated by her taking her BP meds * BP in the 80s systolic, says she has had diarrhea since November 10 when she went to [place] for a lobster festival * admit to PCU * hold BP meds * hydrate with IVF NS @ 150cc/hr * check stool enteric pathogen, stool for Giardia, ova and parasites * lipase level is also elevated at 729; she doesnt have any history of alcohol use or recurrent pancreatitis. * will order CT abdomen pelvis for further evaluation * Of note she did have negative stool for ova and parasites on 11/17/2021 and C. difficile screen done was also negative then. Enteric pathogen done then was also negative. * #Persistent diarrhea: * as above. * Will consult gastroenterology as she has had negative stool for ova and parasites as well as C. difficile and enteric pathogen. #NELSON * Creatinine is 3.41 with a baseline of 0.85 * Likely prerenal due to hypotension and diarrhea * Hold BP meds. * Hydrate with IV fluids. If creatinine does not start to trend downwards, will work-up further with urine electrolytes as well as renal ultrasound. * #Hypokalemia: Potassium is 3.3. Likely due to diarrhea. Will replace and trend. #Hypertension; * hold BP meds o/a of hypotension. * 2D echo today showed EF of 50%, and stage 1 diastolic dysfunction, with LVSF lower limits of normal, and no regional wall motion abnormalities noted. #Asthma: not in exacerbation. On Trelegy inhaler bid. Breathing treatment with bronchodilators DVT prophylaxis; lovenox 30mg daily Code status: full code * Patient counseled extensively about different types of CODE STATUS including full code, DNR CCA and DNR CCA. Patient elects to be full code. * Total [id number] time 16 minutes. Charges/Coding Visit Charges Inpatient E&M: 10350 Init Hosp L3 Procedures Hospitalists Procedures: 17573 Advncd Care Plan 30 Min
--- NOTE | 2021-11-29 17:13 | CT_ITS ---
STUDY: CT ABDOMEN AND PELVIS WITHOUT CONTRAST REASON FOR EXAM: Female, 66 years old. Persistent diarrhea RADIATION DOSAGE (If Supplied By Facility): CTDIvol = ( 16.57 ) mGy, DLP = ( 778.04 ) mGycm TECHNIQUE: Transaxial images were obtained from the dome of the diaphragm to the symphysis pubis without oral contrast, and without intravenous contrast. Sagittal and coronal images were reconstructed. Individualized dose optimization techniques were used for this CT. COMPARISON: None. FINDINGS: The visualized lung bases are unremarkable. The visualized portions of the heart are within normal limits. Normal liver. Normal gallbladder and extrahepatic biliary system. Normal spleen. Normal pancreas. Normal bilateral adrenal glands. There is 0.3 cm stone at the lower pole of the right kidney. There is a 1.2 cm stone in the lower pole of the left kidney. There is scarring and thinning of the cortex of the upper and lower poles left kidney. There is no hydronephrosis. There is a small hiatal hernia. Normal small intestine. There are a few colonic diverticula consistent with diverticulosis. The appendix is visualized and appears normal. There is diffuse atherosclerotic calcification of the abdominal aorta, without a demonstrated aneurysm. Normal inferior vena cava. Normal retroperitoneum. Normal urinary bladder. Normal visualized uterus. There is no free fluid in the abdomen or pelvis. Normal abdominal wall. There are diffuse degenerative changes of the visualized lumbar spine. CT/Abdomen/Pelvis without Cont IMPRESSION: Bilateral renal stones. Scarring of the left kidney. Colonic diverticulosis. No obstruction. Small hiatal hernia. Electronically Signed: Yosvany Villanueva MD at 20:04 EDT ,
[2021-11-29] MEDS: 0.9% Normal Saline 1,000 ML 150 ML IV (18:29)
--- NOTE | 2021-11-29 19:02 | NURSING ---
All documentation and medication administration completed by Akila Rao under the supervision of this RN.
[2021-11-29] MEDS: Albuterol 2.5 MG/3 ML VIAL.NEB. INHALATION (19:26)
[2021-11-29] MEDS: Budesonide Respules 0.5 MG/2 ML AMPUL.NEB. INHALATION (19:26)
--- NOTE | 2021-11-29 22:01 | PCM.HOSP.N ---
Hospitalist Note Contacted per RN with noted low BP. Review of labs include elevated lipase. Will transition back to clears, NPO at midnight, obtain AM GB US as this could contribute to diarrheal presentation. Requested enteric, will add request also for cdiff to be thorough and add FLP in AM given pancreatitis presentation. Will repeat CMP and lipase in AM.
[2021-11-29 22:19] LABS: Magnesium 2.2 mg/dL (1.6-2.6)
[2021-11-30] VITALS (7 sets, daily range): BP systolic 97–119; BP diastolic 62–76; PULSE 65–80; RESP 16–18; TEMP 36.4–36.7; O2SAT 97–100; BMI 31.8
[2021-11-30] MEDS: Potassium Chloride Oral Tablet 20 MEQ 40 MEQ PO (00:31)
[2021-11-30] MEDS: 0.9% Normal Saline 1,000 ML 150 ML IV (00:49)
--- NOTE | 2021-11-30 00:56 | NURSING ---
rt will pt up to give her po potassium, when the pt woke she stated my face is numb like i slept on it weird and then took her pills and didnt state anything else about it. about 10mins later the pt called and c/o rt side of face being swollen and numb like when you go to the dentist to have work done rt side of face does seem bryant then the lt side (sunken in from no teeth/ dentures), eyes are symmetrical, throat wnl- no sores not red not swollen swallows and speaks wnls vitals wnl, no new medications given, extremities are WNLs. will monitor closly and pt instructed to notify the nurse is anything changes dr arreola notified
--- NOTE | 2021-11-30 05:55 | US_ITS ---
STUDY: ABDOMINAL ULTRASOUND - RIGHT UPPER QUADRANT REASON FOR VISIT: Female, 66 years old Pancreatitis TECHNIQUE: Ultrasound evaluation of the right upper quadrant was performed with real-time and static sky-scale imaging. TECHNICAL QUALITY: Adequate. COMPARISON: None. FINDINGS: Liver: The liver measures 17 cm. There is increased echogenicity consistent with fatty infiltration. The bile ducts are within normal limits. There is hepatic color flow. The direction of portal flow is hepatopetal. There is no demonstrated mass lesion. Gallbladder: Normal distended gallbladder. The gallbladder wall measures 2 mm. There is a negative sonographic Flores''s sign. There is no pericholecystic fluid. There are no gallstones. Common Bile Duct (C.B.D.): The common bile duct measures 7 mm. Pancreas: Normal size of the head, body and tail of the pancreas. There is normal echogenicity of the pancreas. There is no demonstrated pancreatic mass or cyst. Right Kidney: Normal size of the right kidney. The right kidney measures 11.7 cm x 6.7 cm x 4.6 cm. Normal renal cortex. The right cortex measures 1.2 cm. There is no demonstrated renal mass or cyst. There is no right hydronephrosis. Findings suggestive of a 5 mm x 2 mm nonobstructive intrarenal calculus. US/Gallbladder IMPRESSION: Fatty infiltration of the liver. Findings suggestive of a small right intrarenal renal calculus. Electronically Signed: Jett Muñoz MD at 10:15 EDT ,
[2021-11-30 06:56] LABS: Absolute Lymphocyte Count 1.05 X10^3/uL (0.83-4.51); Absolute Neutrophil Count 4.8 X10^3/uL (2.0-7.7); Basophil# 0.04 X10^3/uL; Basophil% 0.6 % (0-1); Eosinophil# 0.07 X10^3/uL; Eosinophils% 1.1 % (0-5); Hematocrit 26.5 % (37-47); Hemoglobin 8.8 g/dL (12.0-15.0); Lymphocyte # 1.05 X10^3/ul (0.83-4.51); Mean Corp Hgb Conc 33.2 g/dL (32-36); Mean Corpuscular Hgb 28.2 pg (27.0-32.0); Mean Corpuscular Volume 84.9 fL (81-99); Mean Platelet Vol. 9.6 fl (6.2-12.0); Monocyte# 0.59 X10^3/uL; NRBC Flagged by Analyzer 0 % (0-5); Platelet Count 238 K/mm3 (150-450); RBC Distribution Width CV 13.4 % (11.6-14.6); RBC Distribution Width SD 41.7 fl (35.1-43.9); Red Blood Count 3.12 M/mm3 (4.2-5.4); White Blood Count 6.6 K/mm3 (4.4-11.0)
[2021-11-30 07:23] LABS: ALB/GLOB Ratio 0.5 RATIO (0.9-2.4); AST(SGOT) 17 U/L (15-37); Alanine Aminotransfer ALT/SGPT 15 U/L (13-56); Alkaline Phosphatase 88 U/L (45-117); Anion Gap 5 (5-15); BUN 58 mg/dL (7-18); BUN/Creat Ratio 29.7 RATIO (10-20); Calcium,Total 7.9 mg/dL (8.5-10.1); Chloride 113 mmol/L (98-107); Cholesterol 141 mg/dL (200); Creatinine, Serum 1.95 mg/dL (0.55-1.02); EST Glomerular Filtration Rate 27 mL/min (>60); Est Glom Filt Rate - Afr Amer 33 mL/min (>60); Estimated Creatinine Clearance 21.13 ml/min; Globulin 4.2 g/dL (2.2-4.2); Glucose 95 mg/dL (74-106); High Density Lipoprotein 13 mg/dL; Lipase 731 U/L (73-393); Protein, Total 6.2 g/dL (6.4-8.2); Sodium Level 141 mmol/L (136-145); Triglycerides 243 mg/dL; Very Low Density Lipoprotein 49 mg/dL (5-40)
--- NOTE | 2021-11-30 10:50 | CASEMGMT ---
RN CM BRAKE ADJUSTER CM to room to meet with patient for initial transition planning/care coordination assessment. RN ABY introduced self and role at [facility].? Pt voices understanding and consents to assessment at this time.? Pt resting in bed in no distress at this time.? Pt is A/O at this time and answers all questions appropriately.?? Care providers, pharmacy, and demographics verified/updated at this time. PCP: Dr Jacobsen Specialists: Dr Pickard-cardiology, [facility]--[facility] Preferred Pharmacy: [employer] [place] [facility] Insurance: KARIE Neville A/B Prescription Benefit:?Yes LW/HPOA: Pt has both LW and HPOA, who is her daughter, Sariah LNOK: Dtr/POSariah Romero Living Arrangements: Lives alone in 2-story home w/6 steps to enter. Independent w/ADL's and IADL's. Works @ [employer], full-time. Transportation:?Pt states drives self and states no transportation concerns at this time.? DME: States has the following DME:?3 nebulizers, pulse ox, BP machine ? Pt states no need for further DME at this time.? HHC/SNF: No hx of either. No needs identified. Pt wishes to return home and states has no concerns with going home at time of discharge.?? CM to follow for any discharge planning/needs.? Pt voices no concerns/needs at this time.? Advised pt to ask for CM if any questions/concerns/needs arise.? Voices understanding. PLAN:??Home Boyd MIRZA RN, CM
[2021-11-30] MEDS: Cholecalciferol (VIT D3) 25 MCG TABLET (1,000 UNITS) PO (12:06)
--- NOTE | 2021-11-30 13:25 | CHAPLAIN ---
Type of Pastoral Visit _x__ Initial Visit ___ Follow-up Visit ___ On-call Visit ___ General Patient Visit ___ Spiritual Assessment ___ Family Conference ___ Bereavement ___ Rapid Response ___ Code Blue ___ Other (describe below) Pastoral Care Referral From _x__ Patient ___ Family ___ Nurse ___ Physician ___ Manager Fraud ___ Cellophane Wrapping Examiner ___ Other (describe below) Sacrament/Intervention _x__ Active listening ___ Anointing ___ Buddhist ___ Bereavement ___ Communion _x__ Hanh exploration ___ _x__ Life review _x__ Prayer ___ Reconciliation ___ Sacrament of Sick _x__ Supportive presence ___ Wedding ___ Other (describe below) Pastoral Comments patient is talkative and gives lots of details and life review of current health questions, grief over of spouse 11 months ago, search for her hanh, kinds of support she has from family and friends, and such; pt welcomes spiritual support and prayer; pt is tearful at time of prayer and then is given more time to talk and be expressive of her thoughts and feelings;
--- NOTE | 2021-11-30 14:30 | PCM.PN.HOSP ---
Documented by User: Leyla Moy CERAMIC TILER, CERAMIC TILER-C 11/30/21 14:56 Subjective Subjective Patient seen and examined. Diarrhea improved. Denies nausea, vomiting. Denies abdominal pain. Objective Data Objective Data Vital Signs: Vital Signs Temp Pulse Resp BP Pulse Ox O2 Del Method 97.5 F L 74 17 119/76 98 Room Air 11/30/21 09:00 11/30/21 09:00 11/30/21 09:00 11/30/21 09:00 11/30/21 09:00 11/30/21 09:00 Oxygen Delivery Method Room Air Weight: 168 lb 13.985 oz Body Mass Index (BMI) 31.8 Intake & Output: Intake and Output for Last 24 Hours 11/28/21 11/29/21 11/30/21 23:59 23:59 23:59 Intake Total 1240 / 1740 2550 / 2550 Output Total 0 / 0 Balance 1240 / 1740 2550 / 2550 Lab / Micro Data Result Diagrams: 11/30/21 05:47 11/30/21 05:47 Labs: Laboratory Results - last 24 hr 11/29/21 15:20: WBC 7.3, RBC 3.48 L, Hgb 9.8 L, Hct 29.0 L, MCV 83.3, MCH 28.2, MCHC 33.8, RDW Std Deviation 39.7, RDW Coeff of Rebekah 13.1, Plt Count 298, MPV 9.3, Immature Gran % (Auto) 0.500, Neut % (Auto) 78.9 H, Lymph % (Auto) 11.5 L, [place] % (Auto) 8.2, Eos % (Auto) 0.5, Baso % (Auto) 0.4, Absolute Neuts (auto) 5.8, Absolute Lymphs (auto) 0.84, Nucleated RBC % 0 11/29/21 15:20: Sodium 136, Potassium 3.3 L, Chloride 102, Carbon Dioxide 27.0, Anion Gap 7, BUN 64 H, Creatinine 3.41 H, Estim Creat Clear Calc 12.08, Est GFR (MDRD) Af Amer 17 L, Est GFR (MDRD) Non-Af 14 L, BUN/Creatinine Ratio 18.8, Glucose 143 H, Calcium 9.2, Total Bilirubin 0.50, AST 19, ALT 18, Alkaline Phosphatase 105, Total Protein 7.5, Albumin 2.5 L, Globulin 5.0 H, Albumin/Globulin Ratio 0.5 L, Lipase 729 H 11/29/21 15:20: Magnesium 2.2 11/30/21 05:47: WBC 6.6, RBC 3.12 L, Hgb 8.8 L, Hct 26.5 L, MCV 84.9, MCH 28.2, MCHC 33.2, RDW Std Deviation 41.7, RDW Coeff of Rebekah 13.4, Plt Count 238, MPV 9.6, Immature Gran % (Auto) 0.300, Neut % (Auto) 73.0 H, Lymph % (Auto) 16.0 L, [place] % (Auto) 9.0, Eos % (Auto) 1.1, Baso % (Auto) 0.6, Absolute Neuts (auto) 4.8, Absolute Lymphs (auto) 1.05, Nucleated RBC % 0 11/30/21 05:47: Sodium 141, Potassium 4.0, Chloride 113 H, Carbon Dioxide 23.0, Anion Gap 5, BUN 58 H, Creatinine 1.95 H, Estim Creat Clear Calc 21.13, Est GFR (MDRD) Af Amer 33 L, Est GFR (MDRD) Non-Af 27 L, BUN/Creatinine Ratio 29.7 H, Glucose 95, Calcium 7.9 L, Total Bilirubin 0.30, AST 17, ALT 15, Alkaline Phosphatase 88, Total Protein 6.2 L, Albumin 2.0 L, Globulin 4.2, Albumin/Globulin Ratio 0.5 L, Triglycerides 243 H, Cholesterol 141, LDL Cholesterol 79, VLDL Cholesterol 49 H, HDL Cholesterol 13 L, Lipase 731 H Radiography Diagnostic Testing: Radiology Impression Abdomen/Pelvis CT 11/29/21 17:13 IMPRESSION: Bilateral renal stones. Scarring of the left kidney. Colonic diverticulosis. No obstruction. Small hiatal hernia. Electronically Signed: Yosvany Villanueva MD at 20:04 EDT , Gallbladder Ultrasound 11/30/21 05:55 IMPRESSION: Fatty infiltration of the liver. Findings suggestive of a small right intrarenal renal calculus. Electronically Signed: Jett Muñoz MD at 10:15 EDT , Physical Exam Const alert, oriented x3 and no apparent distress Orientation / Consciousness: awake, oriented to person, oriented to place and oriented to time HEENT normocephalic and moist oral mucous membranes Eyes PERRL, EOMs intact bilaterally and conjunctivae normal Neck no lymphadenopathy Resp normal respiratory effort and clear to auscultation bilaterally Cardio regular rate, regular rhythm and no murmurs Peripheral Pulses: pulses 2+ throughout GI normal to inspection, nondistended, normoactive bowel sounds, non-tender and non-distended Extremity normal to inspection Skin no rashes or lesions noted Lesions: no lesions Rashes: no rashes Trauma: no lacerations or abrasions Neuro CN's II-XII intact bilaterally, no focal motor deficits, no sensory deficits noted and deep tendon reflexes 2+ bilaterally Psych mental status grossly normal and affect normal Assessment & Plan Assessment/Plan (1) Diarrhea: PLAN: Plan 1. Acute normocytic anemia-GI consulted. Plan for upper and lower endoscopy. Bowel prep ordered. Trend CBC. IV PPI. 2. Persistent diarrhea-stool studies negative. GI consulted. Plan for colonoscopy. 3. Acute kidney injury-secondary to GI loss/persistent diarrhea. Improving. Continue IV fluids. Trend BMP. 4. Hypotension-likely related to volume loss as well as BP regimen. Improved. Continue to hold BP regimen. 5. Hypertension-BP regimen on hold. 6. Chronic asthma-as needed aerosols. DVT prophylaxis-SCDs This patient was seen by Leyla Moy NP-C under the supervision of Dr. Madison. Time spent examining patient, reviewing data and subsequent management of care: 15 minutes Documented by User: Dr. Sabino Madison, 11/30/21 17:46 Objective Data Lab / Micro Data Result Diagrams: 11/30/21 05:47 11/30/21 05:47 Assessment & Plan Assessment/Plan (1) Diarrhea: Charges/Coding Addendum Addendum: Patient was seen and examined independently of Leyla Moy, her hemoglobin this morning was 8.8, her blood pressure appears to be improved with fluids. I talked with gastroenterology who had seen the patient earlier today, they agreed to perform an EGD and colonoscopy on the patient tomorrow due to her anemia. I will order an iron level and a TIBC on the patient. On examination she appeared in good health and spirits, she does not appear to be in any distress. Vital signs as documented. Skin warm and dry and without overt rashes. Neck without JVD, thyroid appears normal, trachea is midline, neck is supple. Lungs clear, normal air movement was noted. Heart exam notable for regular rhythm, normal sounds and absence of murmurs, rubs or gallops. Abdomen unremarkable and without evidence of organomegaly, masses, or abdominal aortic enlargement, bowel sounds are present in all 4 quadrants, no abdominal tenderness was noted. Extremities nonedematous, no cyanosis was noted, no clubbing was noted. Neuro: Cranial nerves II through XII are grossly intact, no focal motor deficits were noted, sensation to light touch and pinprick is intact, motor exam 5/5 throughout. Psych: Patient is alert and oriented x3, she does not appear anxious or depressed, she does not appear agitated. Impression: #1 hypotension-possibly secondary to persistent diarrhea with con current taking of blood pressure medications-blood pressure meds will be held, I will continue fluid administration at 100 cc/h #2 acute kidney injury-continue fluid administration and recheck BMP tomorrow #3 chronic anemia-etiology unclear, serum iron and TIBC will be ordered, patient will undergo upper and lower endoscopy tomorrow #4 essential hypertension-patient's blood pressure medications will be held at this time due to hypotension #5 nonischemic cardiomyopathy-patient's medications will be held at this time due to hypotension #6 diarrhea-etiology unclear, patient will undergo colonoscopy tomorrow I have reviewed Leyla Moy's progress note including her medical assessment and plan of care with the above additions endorse it. Total clinical time spent by myself addressing the patient's medical issues, reviewing the data, and collaborating with patient's care team: 20 minutes Visit Charges Inpatient E&M: 88727 Subs Hosp L3
--- NOTE | 2021-11-30 15:50 | PCM.CONS.GEN ---
Assessment & Plan Assessment/Plan (1) Diarrhea: PLAN: The differential diagnosis for his diarrhea is acute gastroenteritis. It is still considered acute up until 3 weeks and then become subacute. She also could be suffering from postinfectious IBS. Stool studies are not showing any signs of infection. She should undergo colonoscopy due to the fact that she also is anemic. We can get direct cultures along with biopsies of the colon. (2) Anemia: PLAN: The differential diagnosis for blood loss anemia. Angiodysplasia, telangiectasia, hemangioma, peptic ulcer disease, less likely neoplasia. She should undergo an upper and lower endoscopy and colonoscopy with possible capsule endoscopy. She was explained alternatives, risk, benefits include not withstanding bleeding, infection, sepsis, perforation, need for emergent . She will have an ASA of 3. HPI Consult Data Date of Consult: 11/30/21 Attending Care Provider: Anemia HPI Narrative Reason for Consultation: Anemia HPI Narrative: STEW BRANDON, is a 66 F who presents via the ED on 11/29/2021 with complaint of weakness and hypotension.? Patient states she went up to [place] on November 10, 2021 .? .She drove to [place] in a state at a hotel. Her and her daughter did have some pizza and her daughter had nausea vomiting, but she did not have any symptoms. Upon arriving to the [facility] she had developed diarrhea as well as nausea and vomiting.? States diarrhea has persisted since she came back and she is noticed at home that her blood pressure has been running low.? She is currently having at least 2-3 episodes of diarrhea every day though the nausea and vomiting has improved.? She denies any chest pain, palpitations, dizziness, or shortness of breath.? She states she went with her daughter and her daughter has not had any similar episodes of diarrhea.? She states apart from the labs that she remembers eating at one restaurant with a potato that was served had a funny taste.? She has been taking her blood pressure medications and states she has noticed at home that her blood pressure has been running low.? She has seen her quality assurance qa lab analyst and background check coordinator in the interim since she came.? She was scheduled to have a 2D echo today and was sent to the ED after she had the echo because of her hypotension.? She has been having a decrease in and persistent hypotension. She Lovenox therapy but it was stopped due to the fact that she developed a worsening anemia along with hypotension. All other 16 review of systems are negative except as per positive in HPI. [facility] Medical History (Updated 11/30/21 @ 15:[address] Buckley Friend, DO) Asthma Left ventricular diastolic dysfunction Near syncope Non-ischemic cardiomyopathy Nonsustained paroxysmal ventricular tachycardia (04/28/20) Obesity Suspected COVID-19 virus infection (08/2019) Home Medications cholecalciferol (vitamin D3) 25 mcg (1,000 unit) tablet 1,000 unit PO DAILY supplement 06/09/18 [History Last Taken 11/28/21] albuterol sulfate 2.5 mg/3 mL (0.083 %) solution for nebulization 2.5 mg inhalation Q4H PRN PRN Wheezing 08/22/19 [History Last Taken 07/04/20] albuterol sulfate 90 mcg/actuation aerosol inhaler 2 puff inhalation Q4H PRN PRN Wheezing 08/22/19 [History Last Taken 11/27/21] ascorbate calcium (vitamin C) 500 mg tablet 500 mg PO QWEEK supplement 06/22/20 [History Last Taken 11/28/21] fluticasone 232 mcg-salmeterol 14 mcg/actuation breath activated powdr 1 inh inhalation BID SOB 10/12/20 [History Last Taken 11/28/21] lisinopril 10 mg tablet 10 mg PO DAILY #90 tabs 05/16/21 [Rx Last Taken 11/28/21] carvedilol 12.5 mg tablet 12.5 mg PO BID #180 tabs 11/01/21 [Rx Last Taken 11/29/21] Allergy/AdvReac Type Severity Reaction Status Date / Time nettle Allergy Severe Anaphylaxis Verified 11/29/21 14:31 aspirin Allergy Swelling Verified 11/29/21 14:31 amoxicillin AdvReac Other Verified 11/29/21 14:31 erythromycin base AdvReac Nausea/Vom/ Verified 11/29/21 14:31 Diarrhea levofloxacin [From Levaquin] AdvReac Other Verified 11/29/21 14:31 sulfamethoxazole AdvReac Other Verified 11/29/21 14:31 [From Bactrim] trimethoprim [From Bactrim] AdvReac Other Verified 11/29/21 14:31 Family History Mother Heart disease ASD Uncle Heart disease valvular heart disease Surgical History H/O arthroscopic knee surgery History of left heart catheterization (07/04/20) History of repair of rotator cuff History of tubal ligation Social History Smoking Status: Never smoker alcohol intake: never substance use type: does not use caffeine: Yes ROS Constitutional Constitutional: Reports anorexia, fatigue, malaise and weakness; Denies change in weight, chills or fever(s) Eyes Eyes: Denies change in vision ENT HEENT: Denies dysphagia or headache(s) Cardiovascular Cardiovascular: Denies chest pain, dyspnea on exertion, edema, lightheadedness, orthopnea, palpitations, rapid heart rate or syncope Respiratory/Chest Respiratory/Chest: Denies cough, productive cough or shortness of breath at rest Gastrointestinal Gastrointestinal: Reports diarrhea; Denies abdominal pain, constipation, dyspepsia, hematemesis, hematochezia, loose stools, nausea or vomiting Genitourinary Genitourinary: Denies dysuria Neurologic Neurologic: Denies confusion, focal weakness, headache(s), seizures, syncope or tremor(s) Psychiatric Psychiatric: Denies anxiety Hematologic/Lymphatic Hematologic/Lymphatic: Denies anemia Physical Exam Const alert, oriented x3 and no apparent distress Orientation / Consciousness: awake, oriented to person, oriented to place and oriented to time HEENT normocephalic and moist oral mucous membranes Eyes PERRL, EOMs intact bilaterally and conjunctivae normal Neck no lymphadenopathy Resp normal respiratory effort and clear to auscultation bilaterally Cardio regular rate, regular rhythm and no murmurs Peripheral Pulses: pulses 2+ throughout GI normal to inspection, nondistended, normoactive bowel sounds, non-tender and non-distended Extremity normal to inspection Skin no rashes or lesions noted Lesions: no lesions Rashes: no rashes Trauma: no lacerations or abrasions Neuro CN's II-XII intact bilaterally, no focal motor deficits, no sensory deficits noted and deep tendon reflexes 2+ bilaterally Psych mental status grossly normal and affect normal Lab / Micro Data Result Diagrams: 11/30/21 05:47 11/30/21 05:47 Labs: Laboratory Results - last 24 hr 11/29/21 15:20: Magnesium 2.2 11/30/21 05:47: WBC 6.6, RBC 3.12 L, Hgb 8.8 L, Hct 26.5 L, MCV 84.9, MCH 28.2, MCHC 33.2, RDW Std Deviation 41.7, RDW Coeff of Rebekah 13.4, Plt Count 238, MPV 9.6, Immature Gran % (Auto) 0.300, Neut % (Auto) 73.0 H, Lymph % (Auto) 16.0 L, [place] % (Auto) 9.0, Eos % (Auto) 1.1, Baso % (Auto) 0.6, Absolute Neuts (auto) 4.8, Absolute Lymphs (auto) 1.05, Nucleated RBC % 0 11/30/21 05:47: Sodium 141, Potassium 4.0, Chloride 113 H, Carbon Dioxide 23.0, Anion Gap 5, BUN 58 H, Creatinine 1.95 H, Estim Creat Clear Calc 21.13, Est GFR (MDRD) Af Amer 33 L, Est GFR (MDRD) Non-Af 27 L, BUN/Creatinine Ratio 29.7 H, Glucose 95, Calcium 7.9 L, Total Bilirubin 0.30, AST 17, ALT 15, Alkaline Phosphatase 88, Total Protein 6.2 L, Albumin 2.0 L, Globulin 4.2, Albumin/Globulin Ratio 0.5 L, Triglycerides 243 H, Cholesterol 141, LDL Cholesterol 79, VLDL Cholesterol 49 H, HDL Cholesterol 13 L, Lipase 731 H Radiology Impression Abdomen/Pelvis CT 11/29/21 17:13 IMPRESSION: Bilateral renal stones. Scarring of the left kidney. Colonic diverticulosis. No obstruction. Small hiatal hernia. Electronically Signed: Yosvany Villanueva MD at 20:04 EDT , Gallbladder Ultrasound 11/30/21 05:55 IMPRESSION: Fatty infiltration of the liver. Findings suggestive of a small right intrarenal renal calculus. Electronically Signed: Jett Muñoz MD at 10:15 EDT , Charges/Coding Visit Charges Inpatient E&M: 57275 Init Hosp L2
[2021-11-30] MEDS: Polyethylene Glycol 3350 BOWEL PREP PO (17:08)
[2021-11-30] MEDS: 0.9% Normal Saline 1,000 ML 100 ML IV (18:36)
[2021-12-01] VITALS (12 sets, daily range): BP systolic 86–138; BP diastolic 32–77; PULSE 61–84; RESP 16–18; TEMP 36.5–37.1; O2SAT 97–100; BMI 31.8
--- NOTE | 2021-12-01 | IMM_PTH ---
PATIENT: STEW BRANDON LOC: [facility] U#:[id number] AGE/SX: 66/F ROOM: [facility] RE11/29/[address]: Dr. Sabino Madison DO : 1955 BED: 1 DIS: 12/01/2021 SPEC #: [id number] RECD: 12/05/21 12:32 STATUS: LUCAS REFlavio #: [id number] CHYNA: 12/01/21 00:[address]: Marcio Ray DEPT: IMMUNOHISTOCHEMISTRY RECD BY: Jennifer Hernandez ENTERED: 12/05/21 12:38 SP TYPE: IMMUNO OTHR DR: MD Dr. Sabino Benavides DO Dr. Nana Yaa Koram, MD Tissues: A - Pancreas, NOS Procedures: P53 (initial) KI-67 (add) PHYSICIAN & INSTITUTION [place] [id number] SPECIMEN INFORMATION: Tissue Source: A ? Pancreatic rest biopsy Clinical Info: Anna Specimen Number: [id number] CPT code: 12766, 58524 METHODOLOGY: Deparaffinized sections of prefer/formalin-fixed tissue or PAP/DQ stained slides are incubated with monoclonal/polyclonal antibodies/oligonucleotide probes. Localization is made via biotin free immunoperoxidase method. Appropriate controls are performed and reacted as expected. Results on target cell population are indicated in the following table: RESULTS: ANTIBODY / CLONE RESULT Block A P53 (DO-7) negative Ki-67 (30-9) positive, low These tests were developed and their performance characteristics determined by [facility]. They may not have been cleared or approved by the U.S. Food and Drug Administration. The FDA has determined that such clearance or approval is not necessary. The above immunohistochemical/dualISH markers are ordered and reviewed by the Pathologist. INTERPRETATION: A. Pancreatic rest, biopsy: No evidence of dysplasia. AM:kalee 12/06/2021
[2021-12-01] MEDS: 0.9% Normal Saline 1,000 ML 100 ML IV (05:00)
[2021-12-01 05:37] LABS: Absolute Lymphocyte Count 1.28 X10^3/uL (0.83-4.51); Absolute Neutrophil Count 3.4 X10^3/uL (2.0-7.7); Basophil# 0.03 X10^3/uL; Basophil% 0.6 % (0-1); Eosinophil# 0.06 X10^3/uL; Eosinophils% 1.2 % (0-5); Hematocrit 25.8 % (37-47); Hemoglobin 8.1 g/dL (12.0-15.0); Lymphocyte # 1.28 X10^3/ul (0.83-4.51); Lymphocyte % 24.8 % (19-41); Mean Corp Hgb Conc 31.4 g/dL (32-36); Mean Corpuscular Hgb 27.7 pg (27.0-32.0); Mean Corpuscular Volume 88.4 fL (81-99); Mean Platelet Vol. 9.2 fl (6.2-12.0); Monocyte# 0.36 X10^3/uL; NRBC Flagged by Analyzer 0 % (0-5); Neutrophil % 65.8 % (47-70); Platelet Count 240 K/mm3 (150-450); RBC Distribution Width CV 13.6 % (11.6-14.6); RBC Distribution Width SD 44.2 fl (35.1-43.9); Red Blood Count 2.92 M/mm3 (4.2-5.4); White Blood Count 5.2 K/mm3 (4.4-11.0)
--- NOTE | 2021-12-01 05:55 | EKG12_ITS ---
Test Reason : am ekg Blood Pressure : / mmHG Vent. Rate : 071 BPM Atrial Rate : 071 BPM P-R Int : 162 ms QRS Dur : 096 ms QT Int : 420 ms P-R-T Axes : 064 015 043 degrees QTc Int : 456 ms Normal sinus rhythm Normal ECG Confirmed by DOMINGO MOORE, ALEX ([id number]), editor newspaper EMMANUELLE GONZÁLES ([id number]) on 12/04/2021 9:44:08 AM Referred By: Los Confirmed By:JACQUES LANE MD
[2021-12-01 06:04] LABS: Anion Gap 3 (5-15); BUN 30 mg/dL (7-18); BUN/Creat Ratio 24.2 RATIO (10-20); Calcium,Total 8.5 mg/dL (8.5-10.1); Chloride 118 mmol/L (98-107); Creatinine, Serum 1.24 mg/dL (0.55-1.02); EST Glomerular Filtration Rate 46 mL/min (>60); Est Glom Filt Rate - Afr Amer 55 mL/min (>60); Estimated Creatinine Clearance 33.22 ml/min; Glucose 100 mg/dL (74-106); Iron 60 ug/dL (50-170); Iron Binding Capacity,Total 156 ug/dL (250-450); PERCENT IRON SATURATION 38.5 % (15.0-55.0); Potassium 4.1 mmol/L (3.5-5.1); Sodium Level 144 mmol/L (136-145)
[2021-12-01 06:10] LABS: International Normalized Ratio 1.3; Partial Thromboplast Time 30.9 Seconds (24.1-36.2); Prothrombin Time (Protime)PT. 15.5 SECONDS (11.7-14.9)
--- NOTE | 2021-12-01 16:13 | DCINST_ITS ---
Discharge Instructions Diet Discharge Diet: Light diet - advance as tolerated Activity Discharge Activity: Return to Normal Activity Dressing / Incision Call your doctor if you observe: Shortness of breath, Dizziness and Chest pain Follow Up Care Test Results: Test results from this visit will be discussed in further detail at your follow- up appointment, if applicable. Discharge Plan Admission Admit Date/Time: 11/29/21 16:44 Primary Reason for Your Visit: Anemia, diarrhea Attending Provider: Sabino Madison Primary Care Provider: Merary Jacobsen Consulting Providers: Afia Regalado Discharge Orders/Prescriptions Prescriptions: New pantoprazole [Protonix] 40 mg tablet,delayed release (DR/EC) 40 mg PO DAILY Qty: 30 0RF Continued ascorbate calcium (vitamin C) 500 mg tablet 500 mg PO QWEEK fluticasone propion-salmeterol 232-14 mcg/actuation aerosol powdr breath activated 1 inh inhalation BID cholecalciferol (vitamin D3) 1,000 UNIT tablet 1,000 unit PO DAILY albuterol sulfate 2.5 MG/3 ML solution for nebulization 2.5 mg INHALATION Q4H PRN PRN (Reason: Wheezing) albuterol sulfate 1 INHALER inhaler 2 puff INHALATION Q4H PRN PRN (Reason: Wheezing) lisinopril 10 mg tablet 10 mg PO DAILY Qty: 90 3RF carvedilol 12.5 mg tablet 12.5 mg PO BID Qty: 180 3RF Rx Instructions: must administer with a meal/food Referrals / Follow Up: Merary Jacobsen MD [Primary Care Provider] - In 1 Week Marcio Ray DO [Med Staff - Active Staff] - Within 2 Weeks Disposition Disposition (needs filled in before D/C Order can be placed): Home, Self Care
--- NOTE | 2021-12-01 16:15 | EGD_PTH ---
PATIENT: STEW BRANDON [facility] U#:[id number] AGE/SX: 66/F ROOM: [facility] RE11/29/[address]: Dr. Sabino Madison DO : 1955 BED: 1 DIS: 12/01/2021 SPEC #: [id number] RECD: 12/01/21 17:10 STATUS: LUCAS REAGAN #: [id number] CHYNA: 12/01/21 16:[address]: Marcio Ray DEPT: SURGICAL PATHOLOGY RECD BY: Meggan Onofre ENTERED: 12/04/21 08:12 SP TYPE: EGD BIOPSY OTHR DR: MD Dr. Sabino Benavides DO Dr. Nana Yaa Koram, MD Tissues: A - Stomach, NOS B - Esophagus, NOS C - COLON BIOPSY Procedures: Special Stain Group II Surgery Specimen Level IV Alcian Blue/PAS (control) Comments: @ Ordering doctor for SUIV edited from to @ by ARSALAN at 12/04/21 1406 @ Submitting doctor edited from to @ by RGOOD at 12/04/21 1409 HEADER OPERATION: Colonoscopy with biopsies, EGD with biopsies ([facility]) PRE-OP DIAGNOSIS: Anemia TISSUE SUBMITTED: A ? Pancreatic rest biopsy, B ? Distal esophagus biopsy, C ? Random colon MICROSCOPIC DIAGNOSIS A. 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 No evidence of dysplasia. See comment. B. Distal esophagus, biopsy: Gastroesophageal junctional mucosa with mild chronic inflammation. No evidence of goblet cell metaplasia. See comment. C. Colon, random biopsy: No pathologic change. AM:kalee 12/05/2021 COMMENT A. Alcian blue/PAS stain with matched control supports the above diagnosis. Immunohistochemistry ([id number]) for P53 and Ki-67 will be performed and results will be reported separately. B. Alcian blue/PAS stain with matched control supports the above diagnosis. MICROSCOPIC DESCRIPTION Slides are reviewed. GROSS DESCRIPTION A - Received in fixative is one container labeled with the patient's name and designated pancreatic rest biopsy. The specimen consists of two irregular fragments of light akins soft tissue that in aggregate measure 0.8 x 0.3 x 0.1 cm. The specimen is totally submitted in one cassette. B - Received in fixative is one container labeled with the patient's name and designated distal esophagus biopsy. The specimen consists of two irregular fragments of light akins soft tissue that in aggregate measure 0.6 x 0.3 x 0.1 cm. The specimen is totally submitted in one cassette. C - Received in fixative is one container labeled with the patient's name and designated biopsy random colon. The specimen consists of multiple irregular fragments of light akins soft tissue that in aggregate measure 1 x 0.8 x 0.1 cm. The specimen is totally submitted in one cassette. / SJ:rg 12/04/2021 TC:3 CPT: 54381 x3, 93238 x2
--- NOTE | 2021-12-01 16:23 | DS.PCM_ITS ---
Documented by User: Leyla Moy NP, [employer] 12/01/21 17:13 Providers Date of Admission: 11/29/21 Date of Discharge: 12/01/21 Primary Care Physician: Dr. Merary Jacobsen MD Consultations 11/29/21 17:36 Consult: Gastroenterology Routine Consulting Provider: Annita Gastroenterology Reason for Consult: persistent diarrhea EMERGENT Consult: No MD Notified: Yes Date Notified: 11/29/21 Time Notified: 17:36 Method of Notification: Text Reason For Visit: NELSON HYPERTENSION, DEHYDRATION, DIARRHEA Diagnosis Discharge Diagnosis (1) Diarrhea: Status: Acute Code(s): R19.7 - Diarrhea, unspecified Medications at Discharge Home Medications cholecalciferol (vitamin D3) 25 mcg (1,000 unit) tablet 1,000 unit PO DAILY supplement 06/09/18 albuterol sulfate 2.5 mg/3 mL (0.083 %) solution for nebulization 2.5 mg inhala tion Q4H PRN PRN Wheezing 08/22/19 albuterol sulfate 90 mcg/actuation aerosol inhaler 2 puff inhalation Q4H PRN PRN Wheezing 08/22/19 ascorbate calcium (vitamin C) 500 mg tablet 500 mg PO QWEEK supplement 06/22/20 fluticasone 232 mcg-salmeterol 14 mcg/actuation breath activated powdr 1 inh inhalation BID SOB 10/12/20 carvedilol 12.5 mg tablet 12.5 mg PO BID #180 tabs 11/01/21 lisinopril 10 mg tablet 10 mg PO DAILY #90 tabs 12/01/21 pantoprazole 40 mg tablet,delayed release (Protonix) 40 mg PO DAILY #30 tabs 12/01/21 Hospital Course Operations None Procedures Colonoscopy and EGD Summary of Care Provided Hospital Course: Patient is a 66-year-old female admitted 11/29/2021 due to hypotension. 1.? Acute normocytic anemia-GI consulted during admission.? Patient underwent EGD which demonstrated grade B reflux esophagitis, medium sized hiatal hernia, single lesion diagnostic of aberrant pancreas found in the stomach which was biopsied. Colonoscopy demonstrated diverticulosis in the rectosigmoid colon, no evidence of bleeding. Follow-up with GI in 2 weeks. Continue Protonix 40 mg daily. Recommend repeat CBC in 1 week by primary care provider. Iron studies within normal limits. 2.? Persistent diarrhea-stool studies negative.? Giardia pending. Colonoscopy as noted above. Await biopsies. 3.? Acute kidney injury-secondary to GI loss/persistent diarrhea.?Resolved. Recommend repeat BMP in one week by PCP. 4. Hypotension-likely related to volume loss as well as BP regimen.?Resolved. Continue carvedilol, lisinopril at discharge. 5. Hypertension-resume BP regimen. 6. Chronic asthma-as needed albuterol. Physical Exam Const alert, oriented x3 and no apparent distress Orientation / Consciousness: awake, oriented to person, oriented to place and oriented to time HEENT normocephalic and moist oral mucous membranes Eyes PERRL, EOMs intact bilaterally and conjunctivae normal Neck no lymphadenopathy Resp normal respiratory effort and clear to auscultation bilaterally Cardio regular rate, regular rhythm and no murmurs Peripheral Pulses: pulses 2+ throughout GI normal to inspection, nondistended, normoactive bowel sounds, non-tender and n on-distended Extremity normal to inspection Skin no rashes or lesions noted Lesions: no lesions Rashes: no rashes Trauma: no lacerations or abrasions Neuro CN's II-XII intact bilaterally, no focal motor deficits, no sensory deficits noted and deep tendon reflexes 2+ bilaterally Psych mental status grossly normal and affect normal This patient was seen by MARU Gilman under the supervision of Dr. Madison. Time spent examining patient, reviewing data and subsequent management of care: 20 minutes Weight / BMI Weight Weight: 168 lb 13.985 oz Body Mass Index (BMI) 31.8 ABG / Lab / Microbiology Data Result Diagrams: 12/01/21 05:18 12/01/21 05:18 Laboratory: Laboratory Results - last 24 hr 12/01/21 05:18: WBC 5.2, RBC 2.92 L, Hgb 8.1 L, Hct 25.8 L, MCV 88.4, MCH 27.7, MCHC 31.4 L D, RDW Std Deviation 44.2 H, RDW Coeff of Rebekah 13.6, Plt Count 240, MPV 9.2, Immature Gran % (Auto) 0.600, Neut % (Auto) 65.8, Lymph % (Auto) 24.8, Carson % (Auto) 7.0, Eos % (Auto) 1.2, Baso % (Auto) 0.6, Absolute Neuts (auto) 3.4, Absolute Lymphs (auto) 1.28, Nucleated RBC % 0 12/01/21 05:18: Sodium 144, Potassium 4.1, Chloride 118 H, Carbon Dioxide 23.0, Anion Gap 3 L, BUN 30 H, Creatinine 1.24 H, Estim Creat Clear Calc 33.22, Est GFR (MDRD) Af Amer 55 L, Est GFR (MDRD) Non-Af 46 L, BUN/Creatinine Ratio 24.2 H , Glucose 100, Calcium 8.5, Iron 60, TIBC 156 L, Iron Saturation 38.5 12/01/21 05:18: PT 15.5 H, INR 1.3, APTT 30.9 Microbiology: Microbiology 11/30/21 20:10 Stool Enteric Bacteriology - Final 11/30/21 20:10 Stool C. difficile DNA Amplification - Final 11/30/21 20:10 Stool Stool Occult Blood (MADDY) - Final D/C Instructions Discharge Diet: Light diet - advance as tolerated Call your doctor if you observe: Shortness of breath, Dizziness and Chest pain Meaningful Use Info Meaningful Use Diagnoses (Choose all that apply): None applicable Discharge Plan Admission Admit Date/Time: 11/29/21 16:44 Primary Reason for Your Visit: Anemia, diarrhea Attending Provider: Sabino Madison Primary Care Provider: Merary Jacobsen Consulting Providers: Afia Regalado Discharge Orders/Prescriptions Prescriptions: New pantoprazole [Protonix] 40 mg tablet,delayed release (DR/EC) 40 mg PO DAILY Qty: 30 0RF Continued ascorbate calcium (vitamin C) 500 mg tablet 500 mg PO QWEEK fluticasone propion-salmeterol 232-14 mcg/actuation aerosol powdr breath activated 1 inh inhalation BID cholecalciferol (vitamin D3) 1,000 UNIT tablet 1,000 unit PO DAILY albuterol sulfate 2.5 MG/3 ML solution for nebulization 2.5 mg INHALATION Q4H PRN PRN (Reason: Wheezing) albuterol sulfate 1 INHALER inhaler 2 puff INHALATION Q4H PRN PRN (Reason: Wheezing) lisinopril 10 mg tablet 10 mg PO DAILY Qty: 90 3RF carvedilol 12.5 mg tablet 12.5 mg PO BID Qty: 180 3RF Rx Instructions: must administer with a meal/food Referrals / Follow Up: Merary Jacobsen MD [Primary Care Provider] - In 1 Week Friend,DO Marcio [Med Staff - Active Staff] - Within 2 Weeks Disposition Disposition (needs filled in before D/C Order can be placed): Home, Self Care Documented by User: Dr. Sabino Madison DO 12/01/21 18:34 Providers Date of Admission: 11/29/21 Reason For Visit: NELSON HYPERTENSION, DEHYDRATION, DIARRHEA Diagnosis Discharge Diagnosis (1) Diarrhea: Status: Acute Code(s): R19.7 - Diarrhea, unspecified Medications at Discharge Home Medications cholecalciferol (vitamin D3) 25 mcg (1,000 unit) tablet 1,000 unit PO DAILY supplement 06/09/18 albuterol sulfate 2.5 mg/3 mL (0.083 %) solution for nebulization 2.5 mg inhalation Q4H PRN PRN Wheezing 08/22/19 albuterol sulfate 90 mcg/actuation aerosol inhaler 2 puff inhalation Q4H PRN PRN Wheezing 08/22/19 ascorbate calcium (vitamin C) 500 mg tablet 500 mg PO QWEEK supplement 06/22/20 fluticasone 232 mcg-salmeterol 14 mcg/actuation breath activated powdr 1 inh inhalation BID SOB 10/12/20 carvedilol 12.5 mg tablet 12.5 mg PO BID #180 tabs 11/01/21 lisinopril 10 mg tablet 10 mg PO DAILY #90 tabs 12/01/21 pantoprazole 40 mg tablet,delayed release (Protonix) 40 mg PO DAILY #30 tabs 12/01/21 ABG / Lab / Microbiology Data Result Diagrams: 12/01/21 05:18 12/01/21 05:18 Discharge Plan Admission Admit Date/Time: 11/29/21 16:44 Primary Reason for Your Visit: Anemia, diarrhea Attending Provider: Sabino Madison Primary Care Provider: Merary Jacobsen Consulting Providers: Afia Regalado Discharge Orders/Prescriptions Prescriptions: New pantoprazole [Protonix] 40 mg tablet,delayed release (DR/EC) 40 mg PO DAILY Qty: 30 0RF Continued ascorbate calcium (vitamin C) 500 mg tablet 500 mg PO QWEEK fluticasone propion-salmeterol 232-14 mcg/actuation aerosol powdr breath activated 1 inh inhalation BID cholecalciferol (vitamin D3) 1,000 UNIT tablet 1,000 unit PO DAILY albuterol sulfate 2.5 MG/3 ML solution for nebulization 2.5 mg INHALATION Q4H PRN PRN (Reason: Wheezing) albuterol sulfate 1 INHALER inhaler 2 puff INHALATION Q4H PRN PRN (Reason: Wheezing) lisinopril 10 mg tablet 10 mg PO DAILY Qty: 90 3RF carvedilol 12.5 mg tablet 12.5 mg PO BID Qty: 180 3RF Rx Instructions: must administer with a meal/food Referrals / Follow Up: Merary Jacobsen MD [Primary Care Provider] - In 1 Week Friend,DO Marcio [Med Staff - Active Staff] - Within 2 Weeks Disposition Disposition (needs filled in before D/C Order can be placed): Home, Self Care Charges/Coding Addendum Addendum: Patient was seen and examined independently of Leyla Moy today, she underwent an EGD and a colonoscopy today which did not show any sign of active bleeding, patient had some reflux esophagitis. Patient appears stable for discharge today, the etiology of her anemia is unknown at this time and she will need to follow-up with her PCP regarding further surveillance. On examination she appeared in good health and spirits, she does not appear to be in any distress. Vital signs as documented. Skin warm and dry and without overt rashes. Neck without JVD, thyroid appears normal, trachea is midline, neck is supple. Lungs clear, normal air movement was noted. Heart exam notable for regular rhythm, normal sounds and absence of murmurs, rubs or gallops. Abdomen unremarkable and without evidence of organomegaly, masses, or abdominal aortic enlargement, bowel sounds are present in all 4 quadrants, no abdominal tenderness was noted. Extremities nonedematous, no cyanosis was noted, no clubbing was noted. Neuro: Cranial nerves II through XII are grossly intact, no focal motor deficits were noted, sensation to light touch and pinprick is intact, motor exam 5/5 throughout. Psych: Patient is alert and oriented x3, she does not appear anxious or depressed, she does not appear agitated. Impression: #1 hypotension-resolved at this time-exact etiology unclear, possibly secondary to diarrhea and concurrent use of blood pressure medication. Patient appears stable for discharge at this time. #2 acute kidney injury-resolved at this time, patient's creatinine was 1.24, and is not had a creatinine in this medical record here since last fall so is difficult to determine what her baseline is but her last creatinine was 1.02 which is close to her creatinine value today. Again this will have to be rechecked as an outpatient #3 chronic anemia-etiology unclear at this time, patient will need follow-up as an outpatient, patient's iron level was normal #4 essential hypertension #5 nonischemic cardiomyopathy #6 chronic diarrhea-etiology unclear, biopsies were taken during the patient's colonoscopy today to exclude microscopic colitis. I have reviewed Leyla Moy's discharge summary including her medical assessment and plan of care with the above additions endorse it. Total clinical time spent by myself addressing the patient's medical issues, reviewing the data, and collaborating with patient's care team: 30 minutes Visit Charges Inpatient E&M: 90097 Disch Hosp
--- NOTE | 2021-12-01 17:00 | OP.EGD_ITS ---
Patient Name: Shiloh Davidson Procedure Date: 12/01/2021 4:01 PM Date of : 1955 Age: 66 Procedure: Upper GI endoscopy Indications: Epigastric abdominal pain, Dyspepsia Providers: Marcio Ray DO Medicines: Monitored Anesthesia Care Patient Profile: This is a 66 year old female. Refer to note in patient chart for documentation of history and physical. Patient has symptoms of acute abdominal cramping, acute abdominal distention and acute nausea. Complications: No immediate complications. Procedure: Pre-Anesthesia Assessment: - Prior to the procedure, a History and Physical was performed, and patient medications and allergies were reviewed. The risks and benefits of the procedure and the sedation options and risks were discussed with the patient. All questions were answered and informed consent was obtained. Patient identification and proposed procedure were verified by the physician in the pre-procedure area. Mental Status Examination: alert and oriented. Airway Examination: normal oropharyngeal airway and neck mobility. Respiratory Examination: clear to auscultation. CV Examination: normal. Prophylactic Antibiotics: The patient does not require prophylactic antibiotics. Prior Anticoagulants: The patient has taken no previous anticoagulant or antiplatelet agents. After reviewing the risks and benefits, the patient was deemed in satisfactory condition to undergo the procedure. The anesthesia plan was to use moderate sedation / analgesia (conscious sedation). Immediately prior to administration of medications, the patient was re-assessed for adequacy to receive sedatives. The heart rate, respiratory rate, oxygen saturations, blood pressure, adequacy of pulmonary ventilation, and response to care were monitored throughout the procedure. The physical status of the patient was re-assessed after the procedure. After obtaining informed consent, the endoscope was passed under direct vision. Throughout the procedure, the patient's blood pressure, pulse, and oxygen saturations were monitored continuously. The colonoscope was introduced through the mouth, and advanced to the second part of duodenum. The upper GI endoscopy was accomplished without difficulty. The patient tolerated the procedure well. Scope In: 4:21:09 PM Scope Out: 4:27:38 PM Total Procedure Duration Time 0 hours 6 minutes 29 seconds Findings: LA Grade B (one or more mucosal breaks greater than 5 mm, not extending between the tops of two mucosal folds) esophagitis with no bleeding was found 37 to 39 cm from the incisors. Biopsies were taken with a cold forceps for histology. Verification of patient identification for the specimen was done. Estimated blood loss was minimal. A medium-sized hiatal hernia was present. A single umbilicated lesion measuring 5 mm in diameter was found in the gastric antrum. Biopsies were taken with a cold forceps for histology. Verification of patient identification for the specimen was done. Estimated blood loss was minimal. The second portion of the duodenum was normal. Impression: - LA Grade B reflux esophagitis. Biopsied. - Medium-sized hiatal hernia. - A single lesion diagnostic of aberrant pancreas was found in the stomach. Biopsied. - Normal second portion of the duodenum. Recommendation: - Discharge patient to home. - Resume previous diet. - Continue present medications. - Await pathology results. Procedure Code(s): --- Professional --- 23920, Esophagogastroduodenoscopy, flexible, transoral; with biopsy, single or multiple CPT copyright 2017 [employer]. All rights reserved. The codes documented in this report are preliminary and upon strike plate attacher review may be revised to meet current compliance requirements. Marcio Ray DO 12/01/2021 4:59:27 PM This report has been signed electronically. Number of Addenda: 1 Note Initiated On: 12/01/2021 4:01 PM Addendum Number: 1 Addendum Date: 01/11/2022 6:04:23 AM MAC was used as sedation for this procedure. Marcio Ray DO 01/11/2022 6:04:27 AM This report has been signed electronically.
--- NOTE | 2021-12-01 17:01 | OP.CCLET_ITS ---
01/11/2022 Merary Jacobsen [address] [place] [address] Re : Upper GI endoscopy procedure for Shiloh Davidson Dear Dr. Jacobsen This procedure was performed on Wednesday, December 01, 2021. My impressions and recommendations are as follows: Impressions : - LA Grade B reflux esophagitis. Biopsied. - Medium-sized hiatal hernia. - A single lesion diagnostic of aberrant pancreas was found in the stomach. Biopsied. - Normal second portion of the duodenum. Recommendations : - Discharge patient to home. - Resume previous diet. - Continue present medications. - Await pathology results. My findings are described in the full procedure note, which is enclosed. If I can be of further assistance, please feel free to contact me at . Sincerely, Marcio Ray, 12/01/2021 4:59:27 PM This report has been signed electronically.
--- NOTE | 2021-12-01 17:03 | OP.COLON_ITS ---
Patient Name: Shiloh Davidson Procedure Date: 12/01/2021 4:27 PM Date of : 1955 Age: 66 Procedure: Colonoscopy Indications: Abdominal pain in the left lower quadrant, Clinically significant diarrhea of unexplained origin Providers: Marcio Ray DO Medicines: Monitored Anesthesia Care Patient Profile: This is a 66 year old female. Refer to note in patient chart for documentation of history and physical. Patient has symptoms of acute abdominal cramping, acute abdominal distention and acute nausea. Last Colonoscopy: several years ago. Complications: No immediate complications. Procedure: Pre-Anesthesia Assessment: - Prior to the procedure, a History and Physical was performed, and patient medications and allergies were reviewed. The risks and benefits of the procedure and the sedation options and risks were discussed with the patient. All questions were answered and informed consent was obtained. Patient identification and proposed procedure were verified by the physician in the pre-procedure area. Mental Status Examination: alert and oriented. Airway Examination: normal oropharyngeal airway and neck mobility. Respiratory Examination: clear to auscultation. CV Examination: normal. Prophylactic Antibiotics: The patient does not require prophylactic antibiotics. Prior Anticoagulants: The patient has taken no previous anticoagulant or antiplatelet agents. After reviewing the risks and benefits, the patient was deemed in satisfactory condition to undergo the procedure. The anesthesia plan was to use moderate sedation / analgesia (conscious sedation). Immediately prior to administration of medications, the patient was re-assessed for adequacy to receive sedatives. The heart rate, respiratory rate, oxygen saturations, blood pressure, adequacy of pulmonary ventilation, and response to care were monitored throughout the procedure. The physical status of the patient was re-assessed after the procedure. After I obtained informed consent, the scope was passed under direct vision. Throughout the procedure, the patient's blood pressure, pulse, and oxygen saturations were monitored continuously. The colonoscope was introduced through the anus and advanced to the terminal ileum. The colonoscopy was performed without difficulty. The patient tolerated the procedure well. The quality of the bowel preparation was good. Scope In: 4:33:21 PM Scope Withdrawal Time 0 hours 12 minutes 33 seconds Scope Out: 4:51:43 PM Total Procedure Duration Time 0 hours 18 minutes 22 seconds Findings: The perianal and digital rectal examinations were normal. Multiple small and large-mouthed diverticula were found in the recto-sigmoid colon, sigmoid colon and descending colon. There was no evidence of diverticular bleeding. An area of moderately congested mucosa was found in the sigmoid colon, in the descending colon, at the splenic flexure, in the transverse colon and in the ascending colon. Biopsies were taken with a cold forceps for histology. Verification of patient identification for the specimen was done. Estimated blood loss was minimal. The terminal ileum appeared normal. Impression: - Diverticulosis in the recto-sigmoid colon, in the sigmoid colon and in the descending colon. There was no evidence of diverticular bleeding. - Congested mucosa in the sigmoid colon, in the descending colon, at the splenic flexure, in the transverse colon and in the ascending colon. Biopsied. - The examined portion of the ileum was normal. Recommendation: - Discharge patient to home. - Resume previous diet. - Repeat colonoscopy is recommended. The colonoscopy date will be determined after pathology results from today's exam become available for review. - Continue present medications. Procedure Code(s): --- Professional --- 16252, Colonoscopy, flexible; with biopsy, single or multiple CPT copyright 2017 [employer]. All rights reserved. The codes documented in this report are preliminary and upon game author review may be revised to meet current compliance requirements. Marcio Ray DO 12/01/2021 5:03:01 PM This report has been signed electronically. Number of Addenda: 1 Note Initiated On: 12/01/2021 4:27 PM Addendum Number: 1 Addendum Date: 01/11/2022 6:04:35 AM MAC was used as sedation for this procedure. Marcio Ray DO 01/11/2022 6:04:41 AM This report has been signed electronically.
--- NOTE | 2021-12-01 17:04 | OP.CCLET_ITS ---
01/11/2022 Merary Jacobsen [address] [place] [address] Re : Colonoscopy procedure for Shiloh Montesowell Dear Dr. Jacobsen This procedure was performed on Wednesday, December 01, 2021. My impressions and recommendations are as follows: Impressions : - Diverticulosis in the recto-sigmoid colon, in the sigmoid colon and in the descending colon. There was no evidence of diverticular bleeding. - Congested mucosa in the sigmoid colon, in the descending colon, at the splenic flexure, in the transverse colon and in the ascending colon. Biopsied. - The examined portion of the ileum was normal. Recommendations : - Discharge patient to home. - Resume previous diet. - Repeat colonoscopy is recommended. The colonoscopy date will be determined after pathology results from today's exam become available for review. - Continue present medications. My findings are described in the full procedure note, which is enclosed. If I can be of further assistance, please feel free to contact me at . Sincerely, Marcio Ray, 12/01/2021 5:03:01 PM This report has been signed electronically.
[2021-12-03 08:57] LABS: Giardia Lamblia, Stool EIA Negative (Negative)
== END 2021-12-01 18:41 | disposition home or self-care (01) | DRG 315 ==
LOC: ED 16:46 → PCU 17:13
PROVIDERS: Anesthesiology; Family Medicine; Internal Medicine Gastroenterology; Nurse Practitioner Family; Admitting Provider Student in an Organized Health Care Education/Training Program; Emergency Provider Emergency Medicine; PCP Family Medicine; Visit Provider Internal Medicine
PROC: 0DJD8ZZ Inspection of Lower Intestinal Tract, Via Natural or Artificial Opening Endoscopic (ICD-10-PCS; CPT 45378; principal; 2021-12-01 16:10)
DX: I95.89 Other hypotension (principal); I42.8 Other cardiomyopathies; N17.9 Acute kidney failure, unspecified; I47.2 Ventricular tachycardia; K21.00 Gastro-esophageal reflux disease with esophagitis, without bleeding; E86.0 Dehydration; K57.30 Diverticulosis of large intestine without perforation or abscess without bleeding; I10 Essential (primary) hypertension; E87.6 Hypokalemia; D64.9 Anemia, unspecified; K44.9 Diaphragmatic hernia without obstruction or gangrene; K52.9 Noninfective gastroenteritis and colitis, unspecified; J45.909 Unspecified asthma, uncomplicated; E66.9 Obesity, unspecified; Z68.31 Body mass index [BMI] 31.0-31.9, adult; Z79.899 Other long term (current) drug therapy
CPT/HCPCS: 36415; 74176; 76705; 80048; 80053; 80061; 82274; 83540; 83550; 83690; 83735; 85025; 85610; 85730; 87177; 87209; 87329; 87493; 87506; 88305; 88313; 88341; 88342; 93005; 94640; 97802; 99285; J7030; J2405

== ENCOUNTER → 2021-11-29 | Outpatient (CLI) | payer BC, MEDICARE, SELFPAY ==
--- NOTE | 2021-11-29 13:22 | ECHOD_ITS ---
Version 2 Reason For Study: CARDIOMYOPATHY Procedure This was a 2D Doppler, Color Flow transthoracic echocardiogram. The study was technically difficult. Exam performed in department. PT taken to ED for evaluation due to low BP, dizziness, balance difficulties & overall malaise. Left Ventricle Normal LV size. Left ventricular systolic function is lower limits of normal. The estimated ejection fraction is 50 %. Stage 1 diastolic dysfunction. No regional wall motion abnormalities noted. Right Ventricle Normal RV size. Normal systolic function. Atria The left atrium is mildly enlarged. Normal right atrium. No doppler evidence for ASD. Mitral Valve There is no mitral annular calcification. Normal mitral valve. Trivial mitral valve insufficiency. Tricuspid Valve Normal tricuspid valve. Trivial tricuspid valve insufficiency. Right ventricular systolic pressure estimated to be 18 mmHg. Aortic Valve Trisinus/trileaflet aortic valve. Normal aortic valve. Pulmonic Valve The pulmonic valve is not well visualized. Mild (1+) pulmonic valve insufficiency. Great Vessels Normal sized aortic root. Pericardium/Pleural No pericardial effusion. MMode/2D Measurements & Calculations LVIDd: 4.5 cm IVSd: 0.99 cm Ao root diam: 2.9 cm LVIDs: 3.3 cm LVPWd: 1.0 cm RVDd: 3.0 cm FS: 25.5 % LAV(MOD-bp): 35.4 ml LVAd ap4: 25.4 cm2 LVAd ap2: 19.6 cm2 LAV(MOD-bp) Indexed: 20.3 ml/m2 LVLd ap4: 7.6 cm LVLd ap2: 6.2 cm LAV(MOD-sp2): 34.6 ml EDV(MOD-sp4): 74.1 ml EDV(MOD-sp2): 54.2 ml LAV(MOD-sp4): 34.4 ml EDV(sp4-el): 72.4 ml EDV(sp2-el): 52.9 ml LVAs ap4: 15.8 cm2 LVAs ap2: 12.0 cm2 LVLs ap4: 6.3 cm LVLs ap2: 4.8 cm ESV(MOD-sp4): 37.1 ml ESV(MOD-sp2): 26.9 ml ESV(sp4-el): 33.7 ml ESV(sp2-el): 25.4 ml EF(MOD-sp4): 50.0 % EF(MOD-sp2): 50.4 % EF(sp4-el): 53.4 % SV(MOD-sp4): 37.0 ml SV(MOD-sp2): 27.3 ml SV(sp4-el): 38.7 ml LA dimension(2D): 3.7 cm LA A4 area: 13.4 cm2 RA A4 area: 12.7 cm2 Time Measurements MV dec time: 0.24 sec Doppler Measurements & Calculations MV E max ramírez: 62.3 cm/sec Lat Peak E' Ramírez: 6.3 cm/sec Med Peak E' Ramírez: 7.2 cm/sec MV A max ramírez: 67.9 cm/sec E/E' lat: 10.0 E/E' med: 8.7 MV E/A: 0.92 MV dec slope: 270.1 cm/sec2 Ao V2 max: 143.5 cm/sec LV V1 max: 112.4 cm/sec Ao max P.2 mmHg LV V1 max P.1 mmHg Ao V2 mean: 98.2 cm/sec LV V1 mean P.8 mmHg Ao mean P.5 mmHg LV V1 mean: 79.4 cm/sec Ao V2 VTI: 30.5 cm LV V1 VTI: 20.9 cm PA V2 max: 107.1 cm/sec PI dec slope: 80.4 cm/sec2 TR max ramírez: 195.1 cm/sec TR max P.3 mmHg ECHO/Echo Complete Interpretation Summary The study was technically difficult. Left ventricular systolic function is lower limits of normal. The estimated ejection fraction is 50 %. The left atrium is mildly enlarged. Trivial mitral valve insufficiency. Trivial tricuspid valve insufficiency. Mild (1+) pulmonic valve insufficiency. Right ventricular systolic pressure estimated to be 18 mmHg. Stage 1 diastolic dysfunction. Ordering Physician: Genaro Pickard Referring Physician: Merary Jacobsen Performed By: Mindi Turpin, RDCS, RVT
== END | disposition home or self-care (01) ==
PROVIDERS: PCP Family Medicine; Referring Provider Internal Medicine Cardiovascular Disease; Visit Provider Internal Medicine Cardiovascular Disease
DX: R53.83 Other fatigue (principal); I42.8 Other cardiomyopathies; I47.2 Ventricular tachycardia; R06.02 Shortness of breath
CPT/HCPCS: 93306

== ENCOUNTER → 2021-12-08 | Outpatient (CLI) | payer BC, MEDICARE, SELFPAY ==
[2021-12-08 14:55] LABS: Absolute Lymphocyte Count 1.07 X10^3/uL (0.83-4.51); Absolute Neutrophil Count 9.5 X10^3/uL (2.0-7.7); Basophil# 0.03 X10^3/uL; Basophil% 0.3 % (0-1); Eosinophil# 0.08 X10^3/uL; Eosinophils% 0.7 % (0-5); Hematocrit 29.4 % (37-47); Hemoglobin 9.6 g/dL (12.0-15.0); Lymphocyte # 1.07 X10^3/ul (0.83-4.51); Lymphocyte % 9.2 % (19-41); Mean Corp Hgb Conc 32.7 g/dL (32-36); Mean Corpuscular Hgb 27.7 pg (27.0-32.0); Mean Corpuscular Volume 84.7 fL (81-99); Mean Platelet Vol. 9.8 fl (6.2-12.0); Monocyte# 0.92 X10^3/uL; Monocyte% 7.9 % (0-10); NRBC Flagged by Analyzer 0 % (0-5); Neutrophil # 9.51 X10^3/uL (2.7-7.7); Neutrophil % 81.6 % (47-70); Platelet Count 500 K/mm3 (150-450); RBC Distribution Width CV 13.2 % (11.6-14.6); RBC Distribution Width SD 40.8 fl (35.1-43.9); Red Blood Count 3.47 M/mm3 (4.2-5.4); White Blood Count 11.7 K/mm3 (4.4-11.0)
[2021-12-08 14:56] LABS: Absolute Lymphocyte Count 2.54 X10^3/uL (0.83-4.51); Absolute Neutrophil Count 7.1 X10^3/uL (2.0-7.7); Basophil# 0.09 X10^3/uL; Basophil% 0.8 % (0-1); Eosinophil# 0.25 X10^3/uL; Eosinophils% 2.4 % (0-5); Hematocrit 41.3 % (37-47); Hemoglobin 13.6 g/dL (12.0-15.0); Lymphocyte # 2.54 X10^3/ul (0.83-4.51); Mean Corp Hgb Conc 32.9 g/dL (32-36); Mean Corpuscular Hgb 31.3 pg (27.0-32.0); Mean Corpuscular Volume 95.2 fL (81-99); Mean Platelet Vol. 10.1 fl (6.2-12.0); Monocyte# 0.62 X10^3/uL; Monocyte% 5.9 % (0-10); NRBC Flagged by Analyzer 0 % (0-5); Neutrophil # 7.05 X10^3/uL (2.7-7.7); Neutrophil % 66.5 % (47-70); Platelet Count 288 K/mm3 (150-450); RBC Distribution Width CV 12.4 % (11.6-14.6); RBC Distribution Width SD 43.4 fl (35.1-43.9); Red Blood Count 4.34 M/mm3 (4.2-5.4); White Blood Count 10.6 K/mm3 (4.4-11.0)
[2021-12-08 15:20] LABS: ALB/GLOB Ratio 0.5 RATIO (0.9-2.4); AST(SGOT) 71 U/L (15-37); Alanine Aminotransfer ALT/SGPT 52 U/L (13-56); Albumin, Serum 2.6 g/dL (3.2-5.0); Alkaline Phosphatase 118 U/L (45-117); Anion Gap 10 (5-15); BUN 29 mg/dL (7-18); BUN/Creat Ratio 14.4 RATIO (10-20); Calcium,Total 8.7 mg/dL (8.5-10.1); Chloride 102 mmol/L (98-107); Creatinine, Serum 2.01 mg/dL (0.55-1.02); EST Glomerular Filtration Rate 26 mL/min (>60); Est Glom Filt Rate - Afr Amer 32 mL/min (>60); Globulin 5.3 g/dL (2.2-4.2); Glucose 109 mg/dL (74-106); Potassium 3.7 mmol/L (3.5-5.1); Protein, Total 7.9 g/dL (6.4-8.2); Sodium Level 137 mmol/L (136-145)
[2021-12-08 15:35] LABS: Thyroid Stim Hormone (TSH) 0.02 uIU/mL (0.358-3.74)
== END | disposition home or self-care (01) ==
LOC: MFPLAB 12:24
PROVIDERS: Internal Medicine Cardiovascular Disease; PCP Family Medicine; Visit Provider Family Medicine
DX: D64.9 Anemia, unspecified (principal); S37.009A Unspecified injury of unspecified kidney, initial encounter
CPT/HCPCS: 36415; 80053; 84443; 85025

== ENCOUNTER → 2021-12-15 | Outpatient (CLI) | payer BC, MEDICARE, SELFPAY | END | disposition home or self-care (01) | LOC: MFPLAB 14:32 | PROVIDERS: PCP Family Medicine; Referring Provider Family Medicine; Visit Provider Family Medicine | DX: S37.009A Unspecified injury of unspecified kidney, initial encounter (principal); D64.9 Anemia, unspecified ==

== ENCOUNTER 2021-12-18 19:10 | Emergency (ER) | payer BC, MEDICARE, SELFPAY ==
[2021-12-18 19:11] VITALS: BP 111/70; PULSE 102; RESP 14; TEMP 36.4; O2SAT 97; BMI 29.0
--- NOTE | 2021-12-18 21:22 | EDS_ITS ---
HPI History of Present Illness Chief Complaint: Abn Labs Narrative Narrative: 66-year-old female with history of anemia is presenting with a low hemoglobin. She states she was recently in the hospital and had upper and lower endoscopy performed by Dr. Ray and found no bleeding. The patient initially presented with nausea, vomiting, diarrhea and was severely dehydrated. Her kidney function did get better in the hospital and her hemoglobin came down as she was hydrated. She was not transfused any blood. She states that since she has been discharged she still had some nausea and vomiting which has been persistent. She has something for nausea at home but does not know the name of it. She states it does not dissolve under her tongue. She states she is on Protonix currently. She is able to drink small amounts of water and hold this down but anything large she has occultly with. [facility] Medical History Anemia Asthma Left ventricular diastolic dysfunction Near syncope Non-ischemic cardiomyopathy Nonsustained paroxysmal ventricular tachycardia (04/28/20) Obesity Suspected COVID-19 virus infection (08/2019) Home Medications cholecalciferol (vitamin D3) 25 mcg (1,000 unit) tablet 1,000 unit PO DAILY supplement 06/09/18 [History Last Taken 11/28/21] albuterol sulfate 2.5 mg/3 mL (0.083 %) solution for nebulization 2.5 mg inhalation Q4H PRN PRN Wheezing 08/22/19 [History Last Taken 07/04/20] albuterol sulfate 90 mcg/actuation aerosol inhaler 2 puff inhalation Q4H PRN PRN Wheezing 08/22/19 [History Last Taken 11/27/21] ascorbate calcium (vitamin C) 500 mg tablet 500 mg PO QWEEK supplement 06/22/20 [History Last Taken 11/28/21] fluticasone 232 mcg-salmeterol 14 mcg/actuation breath activated powdr 1 inh inhalation BID SOB 10/12/20 [History Last Taken 11/28/21] carvedilol 12.5 mg tablet 12.5 mg PO BID #180 tabs 11/01/21 [Rx Last Taken 11/29/21] lisinopril 10 mg tablet 10 mg PO DAILY #90 tabs 12/01/21 [Rx Last Taken 11/28/21] pantoprazole 40 mg tablet,delayed release (Protonix) 40 mg PO DAILY #30 tabs 12/01/21 [Rx Last Taken Unknown] ferrous fumarate 325 mg (106 mg iron) tablet 325 mg PO DAILY #60 tabs 12/18/21 [Rx Last Taken Unknown] xwfete-wvnlcvbj-obzhdqc 24,000-76,000-120,000 unit capsule,delayed rel (Creon) 1 cap PO TID #90 caps 12/18/21 [Rx Last Taken Unknown] ondansetron 4 mg disintegrating tablet 4 mg PO Q8H PRN nausea and vomiting #14 tabs 12/18/21 [Rx Last Taken Unknown] Allergy/AdvReac Type Severity Reaction Status Date / Time nettle Allergy Severe Anaphylaxis Verified 12/18/21 19:11 aspirin Allergy Swelling Verified 12/18/21 19:11 amoxicillin AdvReac Other Verified 12/18/21 19:11 erythromycin base AdvReac Nausea/Vom/ Verified 12/18/21 19:11 Diarrhea levofloxacin [From Levaquin] AdvReac Other Verified 12/18/21 19:11 sulfamethoxazole AdvReac Other Verified 12/18/21 19:11 [From Bactrim] trimethoprim [From Bactrim] AdvReac Other Verified 12/18/21 19:11 Family History Mother Heart disease ASD Uncle Heart disease valvular heart disease Surgical History H/O arthroscopic knee surgery History of left heart catheterization (07/04/20) History of repair of rotator cuff History of tubal ligation Social History Smoking Status: Never smoker alcohol intake: never substance use type: does not use caffeine: Yes EXAM Physical Exam Const Vital Signs: 12/18/21 19:11 Temperature 97.5 F L Temperature Source Temporal Pulse Rate 102 H Respiratory Rate 14 Blood Pressure 111/70 Blood Pressure Mean 83 Pulse Ox 97 Oxygen Delivery Method Room Air Positive well nourished General Appearance ED: NAD; Negative for pallor HEENT Reports moist mucous membranes Eyes PERRL and EOMs intact bilaterally Neck no lymphadenopathy Resp normal respiratory effort Cardio regular rate and regular rhythm GI normal to inspection, nondistended, normoactive bowel sounds Neuro oriented x3 and CN's II-XII intact bilaterally Sensorium / Orientation: alert Motor Exam: strength 5/5 throughout Psych mental status grossly normal Skin General Skin Exam: Negative for jaundice or pallor MDM MDM MDM Narrative Medical decision making narrative: After reviewing the patient's lab work her hemoglobin was 9.8 on admission 11/29/2021. At that point she had a creatinine of 3.41. She received IV fluids and her kidney function did improve in the hospital. At discharge it was 1.24. Her hemoglobin was 8.1 on discharge. This is likely a delusional effect. I did look at Dr. Ray's endoscopies and noted that he did not find any source of bleeding. I spoke with him personally and he stated that the only thing he found was a pancreatic rest on her upper endoscopy. I went over the blood work with him and I did make sense that on 12/08/2021 that she had an isolated elevated hemoglobin of 13.6. Her creatinine was 2.00 on that day as well. Today her creatinine is 1.8 so it is improved. We did discuss her scopes and he did not think she had bleeding. We went over her lab work and he felt there must be some error. I went to speak with the patient regarding this and we discussed the delusional effect of getting fluids for her acute kidney injury and how her hemoglobin had come down. She also at that point stated to me that on 12/08/2021 the lab did call her and tell her that there were 2 different names associated with her labs and that she would need to get repeat blood work. She did that today and her hemoglobin is baseline. She has not had any new black or bloody stools. She is vomiting but denies any black emesis or bloody emesis. She states it looks more bilious. She is not having abdominal pain. Her vital signs are stable. I discussed with her after speaking with Dr. Ray he recommended put her on ferrous sulfate 325 mg p.o. twice daily and Creon 1 tab p.o. 3 times daily with meals. I did put a page out for Dr. Jacobsen her primary care physician to discuss this with her. I feel the patient is safe for discharge and I will speak with her PCP when she calls back. Impression: 1. Nausea/vomiting 2. Anemia 3. Kidney disease Lab Data Attestation: I reviewed the patient's lab results. Discharge Plan Triage Chief Complaint: Abn Labs ED Provider: Rocky Wright Dx/Rx/DC Orders Instructions: ED Anemia, Type Not Specified (Adult) Prescriptions: New Creon 24,000-76,000 -120,000 unit capsule,delayed release(DR/EC) 1 cap PO TID Qty: 90 0RF Rx Instructions: administer with meals and/or snacks ferrous fumarate 325 mg (106 mg iron) tablet 325 mg PO DAILY Qty: 60 0RF ondansetron 4 mg tablet,disintegrating 4 mg PO Q8H PRN (Reason: nausea and vomiting) Qty: 14 0RF No Action ascorbate calcium (vitamin C) 500 mg tablet 500 mg PO QWEEK fluticasone propion-salmeterol 232-14 mcg/actuation aerosol powdr breath activated 1 inh inhalation BID cholecalciferol (vitamin D3) 1,000 UNIT tablet 1,000 unit PO DAILY albuterol sulfate 2.5 MG/3 ML solution for nebulization 2.5 mg INHALATION Q4H PRN PRN (Reason: Wheezing) albuterol sulfate 1 INHALER inhaler 2 puff INHALATION Q4H PRN PRN (Reason: Wheezing) lisinopril 10 mg tablet 10 mg PO DAILY Qty: 90 3RF pantoprazole [Protonix] 40 mg tablet,delayed release (DR/EC) 40 mg PO DAILY Qty: 30 0RF carvedilol 12.5 mg tablet 12.5 mg PO BID Qty: 180 3RF Rx Instructions: must administer with a meal/food Primary Care Provider: Merary Jacobsen Referrals: Merary Jacobsen MD [Primary Care Provider] - Disposition Disposition: Home, Self Care
[2021-12-18 21:51] VITALS: BP 120/70
== END 2021-12-18 21:52 | disposition home or self-care (01) ==
PROVIDERS: Emergency Provider Student in an Organized Health Care Education/Training Program; PCP Family Medicine; Visit Provider Student in an Organized Health Care Education/Training Program
DX: R11.2 Nausea with vomiting, unspecified (principal); N28.9 Disorder of kidney and ureter, unspecified; D64.9 Anemia, unspecified; J45.909 Unspecified asthma, uncomplicated; Z79.899 Other long term (current) drug therapy; E66.9 Obesity, unspecified
CPT/HCPCS: 99282; A4216

== ENCOUNTER → 2021-12-18 | Outpatient (CLI) | payer BC, MEDICARE, SELFPAY ==
[2021-12-18 09:59] LABS: Absolute Lymphocyte Count 1.14 X10^3/uL (0.83-4.51); Absolute Neutrophil Count 12.9 X10^3/uL (2.0-7.7); Basophil# 0.04 X10^3/uL; Basophil% 0.3 % (0-1); Eosinophil# 0.01 X10^3/uL; Eosinophils% 0.1 % (0-5); Hematocrit 27.5 % (37-47); Hemoglobin 8.7 g/dL (12.0-15.0); Lymphocyte # 1.14 X10^3/ul (0.83-4.51); Lymphocyte % 7.3 % (19-41); Mean Corp Hgb Conc 31.6 g/dL (32-36); Mean Corpuscular Hgb 26.8 pg (27.0-32.0); Mean Corpuscular Volume 84.6 fL (81-99); Mean Platelet Vol. 9.5 fl (6.2-12.0); Monocyte# 1.33 X10^3/uL; Monocyte% 8.5 % (0-10); NRBC Flagged by Analyzer 0 % (0-5); Neutrophil # 12.91 X10^3/uL (2.7-7.7); Platelet Count 352 K/mm3 (150-450); RBC Distribution Width CV 13.5 % (11.6-14.6); RBC Distribution Width SD 42.3 fl (35.1-43.9); Red Blood Count 3.25 M/mm3 (4.2-5.4); White Blood Count 15.6 K/mm3 (4.4-11.0)
[2021-12-18 10:56] LABS: ALB/GLOB Ratio 0.5 RATIO (0.9-2.4); AST(SGOT) 19 U/L (15-37); Alanine Aminotransfer ALT/SGPT 19 U/L (13-56); Albumin, Serum 2.6 g/dL (3.2-5.0); Alkaline Phosphatase 113 U/L (45-117); Anion Gap 9 (5-15); BUN 28 mg/dL (7-18); BUN/Creat Ratio 15.6 RATIO (10-20); Calcium,Total 9.4 mg/dL (8.5-10.1); Chloride 100 mmol/L (98-107); EST Glomerular Filtration Rate 30 mL/min (>60); Est Glom Filt Rate - Afr Amer 36 mL/min (>60); Glucose 122 mg/dL (74-106); Potassium 3.9 mmol/L (3.5-5.1); Protein, Total 7.6 g/dL (6.4-8.2); Sodium Level 134 mmol/L (136-145)
== END | disposition home or self-care (01) ==
LOC: MFPLAB 09:18
PROVIDERS: PCP Family Medicine; Visit Provider Family Medicine
DX: S37.009A Unspecified injury of unspecified kidney, initial encounter (principal); D64.9 Anemia, unspecified
CPT/HCPCS: 36415; 80053; 85025

== ENCOUNTER → 2021-12-27 | Outpatient (CLI) | payer BC, MEDICARE, SELFPAY ==
[2021-12-27 14:59] LABS: Absolute Lymphocyte Count 1.23 X10^3/uL (0.83-4.51); Absolute Neutrophil Count 6.5 X10^3/uL (2.0-7.7); Basophil# 0.04 X10^3/uL; Basophil% 0.5 % (0-1); Eosinophil# 0.17 X10^3/uL; Hematocrit 27.6 % (37-47); Hemoglobin 8.3 g/dL (12.0-15.0); Lymphocyte # 1.23 X10^3/ul (0.83-4.51); Lymphocyte % 14.2 % (19-41); Mean Corp Hgb Conc 30.1 g/dL (32-36); Mean Corpuscular Hgb 26.2 pg (27.0-32.0); Mean Corpuscular Volume 87.1 fL (81-99); Mean Platelet Vol. 9.2 fl (6.2-12.0); Monocyte# 0.69 X10^3/uL; Monocyte% 7.9 % (0-10); NRBC Flagged by Analyzer 0 % (0-5); Neutrophil % 74.8 % (47-70); Platelet Count 421 K/mm3 (150-450); RBC Distribution Width CV 14.5 % (11.6-14.6); RBC Distribution Width SD 45.1 fl (35.1-43.9); Red Blood Count 3.17 M/mm3 (4.2-5.4); White Blood Count 8.7 K/mm3 (4.4-11.0)
[2021-12-27 15:26] LABS: Anion Gap 7 (5-15); BUN 17 mg/dL (7-18); Calcium,Total 9.4 mg/dL (8.5-10.1); Chloride 107 mmol/L (98-107); Creatinine, Serum 1.13 mg/dL (0.55-1.02); EST Glomerular Filtration Rate 51 mL/min (>60); Est Glom Filt Rate - Afr Amer 62 mL/min (>60); Glucose 100 mg/dL (74-106); Potassium 3.5 mmol/L (3.5-5.1); Sodium Level 142 mmol/L (136-145); Thyroid Stim Hormone (TSH) 1.47 uIU/mL (0.358-3.74)
[2021-12-27 17:43] LABS: RET-HE 32.1 pg (30-35); Reticulocyte Count 2.47 % (0.5-1.5)
== END | disposition home or self-care (01) ==
LOC: MFPLAB 12:09
PROVIDERS: PCP Family Medicine; Referring Provider Family Medicine; Visit Provider Family Medicine
DX: E05.90 Thyrotoxicosis, unspecified without thyrotoxic crisis or storm (principal); D64.9 Anemia, unspecified; S37.009A Unspecified injury of unspecified kidney, initial encounter; X58.XXXA Exposure to other specified factors, initial encounter
CPT/HCPCS: 36415; 80048; 84443; 85025; 85045

== ENCOUNTER → 2022-02-05 | Outpatient (CLI) | payer BC, MEDICARE, SELFPAY ==
[2022-02-05 15:18] LABS: Absolute Neutrophil Count 5.2 X10^3/uL (2.0-7.7); Basophil# 0.05 X10^3/uL; Basophil% 0.7 % (0-1); Eosinophil# 0.33 X10^3/uL; Eosinophils% 4.6 % (0-5); Hemoglobin 8.6 g/dL (12.0-15.0); Mean Corp Hgb Conc 30.7 g/dL (32-36); Mean Corpuscular Hgb 26.3 pg (27.0-32.0); Mean Corpuscular Volume 85.6 fL (81-99); Mean Platelet Vol. 8.7 fl (6.2-12.0); Monocyte# 0.57 X10^3/uL; NRBC Flagged by Analyzer 0 % (0-5); Neutrophil # 5.17 X10^3/uL (2.7-7.7); Neutrophil % 72.3 % (47-70); Platelet Count 361 K/mm3 (150-450); RBC Distribution Width CV 14.9 % (11.6-14.6); RBC Distribution Width SD 46.5 fl (35.1-43.9); Red Blood Count 3.27 M/mm3 (4.2-5.4); White Blood Count 7.2 K/mm3 (4.4-11.0)
[2022-02-05 15:43] LABS: Anion Gap 7 (5-15); BUN 19 mg/dL (7-18); BUN/Creat Ratio 17.8 RATIO (10-20); Calcium,Total 8.9 mg/dL (8.5-10.1); Chloride 108 mmol/L (98-107); Creatinine, Serum 1.07 mg/dL (0.55-1.02); EST Glomerular Filtration Rate 54 mL/min (>60); Est Glom Filt Rate - Afr Amer 66 mL/min (>60); Glucose 119 mg/dL (74-106); Potassium 3.9 mmol/L (3.5-5.1); Sodium Level 141 mmol/L (136-145); Thyroid Stim Hormone (TSH) 1.83 uIU/mL (0.358-3.74)
== END | disposition home or self-care (01) ==
LOC: MFPLAB 11:53
PROVIDERS: PCP Family Medicine; Visit Provider Family Medicine
DX: S37.009A Unspecified injury of unspecified kidney, initial encounter (principal); X58.XXXA Exposure to other specified factors, initial encounter; D64.9 Anemia, unspecified; E05.90 Thyrotoxicosis, unspecified without thyrotoxic crisis or storm
CPT/HCPCS: 36415; 80048; 84443; 85025

== ENCOUNTER → 2022-02-15 | Outpatient (CLI) | payer BC, MEDICARE, SELFPAY ==
[2022-02-15 15:21] LABS: Absolute Neutrophil Count 7.5 X10^3/uL (2.0-7.7); Basophil# 0.05 X10^3/uL; Basophil% 0.5 % (0-1); Eosinophil# 0.51 X10^3/uL; Hematocrit 32.9 % (37-47); Hemoglobin 10.3 g/dL (12.0-15.0); Lymphocyte % 13.6 % (19-41); Mean Corp Hgb Conc 31.3 g/dL (32-36); Mean Corpuscular Hgb 25.8 pg (27.0-32.0); Mean Corpuscular Volume 82.3 fL (81-99); Mean Platelet Vol. 8.6 fl (6.2-12.0); Monocyte# 0.81 X10^3/uL; Monocyte% 7.9 % (0-10); NRBC Flagged by Analyzer 0 % (0-5); Neutrophil # 7.46 X10^3/uL (2.7-7.7); Neutrophil % 72.7 % (47-70); Platelet Count 440 K/mm3 (150-450); White Blood Count 10.3 K/mm3 (4.4-11.0)
[2022-02-15 15:43] LABS: LDH 304 U/L (84-246)
[2022-02-19 15:08] LABS: Endomysial Antibody IgA Negative (Negative)
[2022-02-19 16:11] LABS: Immunoglobulin A 522 mg/dL (87-352); t-Transglutaminase IgA <2 U/mL (0-3)
[2022-02-24 04:07] LABS: Immunoglobulin A 525 mg/dL (87-352); Immunoglobulin E 411 IU/mL (6-495); Immunoglobulin G 1147 mg/dL (586-1602)
[2022-02-24 07:38] LABS: Immunoglobulin M 74 mg/dL (26-217)
== END | disposition home or self-care (01) ==
LOC: LAB 14:50
PROVIDERS: PCP Family Medicine; Visit Provider Internal Medicine Gastroenterology
DX: D64.9 Anemia, unspecified (principal)
CPT/HCPCS: 36415; 82784; 82785; 83516; 83615; 85025; 86255

== ENCOUNTER → 2022-05-07 | Outpatient (CLI) | payer BC, MEDICARE, SELFPAY ==
[2022-05-07 12:09] LABS: Absolute Neutrophil Count 4.5 X10^3/uL (2.0-7.7); Basophil# 0.06 X10^3/uL; Basophil% 0.8 % (0-1); Eosinophil# 0.63 X10^3/uL; Eosinophils% 8.4 % (0-5); Hematocrit 36.6 % (37-47); Hemoglobin 11.5 g/dL (12.0-15.0); Lymphocyte % 21.4 % (19-41); Mean Corp Hgb Conc 31.4 g/dL (32-36); Mean Corpuscular Hgb 25.7 pg (27.0-32.0); Mean Corpuscular Volume 81.9 fL (81-99); Mean Platelet Vol. 9.1 fl (6.2-12.0); Monocyte# 0.63 X10^3/uL; Monocyte% 8.4 % (0-10); NRBC Flagged by Analyzer 0 % (0-5); Neutrophil # 4.52 X10^3/uL (2.7-7.7); Neutrophil % 60.7 % (47-70); Platelet Count 308 K/mm3 (150-450); RBC Distribution Width CV 16.3 % (11.6-14.6); RBC Distribution Width SD 48.6 fl (35.1-43.9); Red Blood Count 4.47 M/mm3 (4.2-5.4); White Blood Count 7.5 K/mm3 (4.4-11.0)
[2022-05-07 12:45] LABS: Anion Gap 7 (5-15); BUN 24 mg/dL (7-18); BUN/Creat Ratio 20.9 RATIO (10-20); Calcium,Total 9.3 mg/dL (8.5-10.1); Chloride 108 mmol/L (98-107); Creatinine, Serum 1.15 mg/dL (0.55-1.02); EST Glomerular Filtration Rate 50 mL/min (>60); Est Glom Filt Rate - Afr Amer 60 mL/min (>60); Glucose 82 mg/dL (74-106); Potassium 4.2 mmol/L (3.5-5.1); Sodium Level 142 mmol/L (136-145)
== END | disposition home or self-care (01) ==
PROVIDERS: PCP Family Medicine; Visit Provider Family Medicine
DX: S37.009A Unspecified injury of unspecified kidney, initial encounter (principal); X58.XXXA Exposure to other specified factors, initial encounter; D64.9 Anemia, unspecified
CPT/HCPCS: 36415; 80048; 85025

== ENCOUNTER → 2022-09-05 | Outpatient (CLI) | payer BC, MEDICARE, SELFPAY ==
[2022-09-05 11:01] LABS: Absolute Lymphocyte Count 1.37 X10^3/uL (0.83-4.51); Absolute Neutrophil Count 4.1 X10^3/uL (2.0-7.7); Basophil# 0.04 X10^3/uL; Basophil% 0.6 % (0-1); Eosinophil# 0.49 X10^3/uL; Eosinophils% 7.5 % (0-5); Hematocrit 35.5 % (37-47); Hemoglobin 11.2 g/dL (12.0-15.0); Lymphocyte # 1.37 X10^3/ul (0.83-4.51); Lymphocyte % 20.9 % (19-41); Mean Corp Hgb Conc 31.5 g/dL (32-36); Mean Corpuscular Hgb 27.1 pg (27.0-32.0); Mean Corpuscular Volume 85.7 fL (81-99); Mean Platelet Vol. 8.8 fl (6.2-12.0); Monocyte# 0.51 X10^3/uL; Monocyte% 7.8 % (0-10); NRBC Flagged by Analyzer 0 % (0-5); Neutrophil % 62.7 % (47-70); Platelet Count 282 K/mm3 (150-450); RBC Distribution Width CV 13.5 % (11.6-14.6); RBC Distribution Width SD 42.5 fl (35.1-43.9); Red Blood Count 4.14 M/mm3 (4.2-5.4); White Blood Count 6.5 K/mm3 (4.4-11.0)
[2022-09-05 11:32] LABS: ALB/GLOB Ratio 0.8 RATIO (0.9-2.4); AST(SGOT) 17 U/L (15-37); Alanine Aminotransfer ALT/SGPT 18 U/L (13-56); Albumin, Serum 3.3 g/dL (3.2-5.0); Alkaline Phosphatase 94 U/L (45-117); Anion Gap 5 (5-15); BUN 22 mg/dL (7-18); BUN/Creat Ratio 15.8 RATIO (10-20); Calcium,Total 9.1 mg/dL (8.5-10.1); Chloride 108 mmol/L (98-107); Cholesterol 219 mg/dL (200); Creatinine, Serum 1.39 mg/dL (0.55-1.02); EST Glomerular Filtration Rate 40 mL/min (>60); Est Glom Filt Rate - Afr Amer 48 mL/min (>60); Globulin 3.9 g/dL (2.2-4.2); Glucose 104 mg/dL (74-106); High Density Lipoprotein 43 mg/dL; Potassium 4.4 mmol/L (3.5-5.1); Protein, Total 7.2 g/dL (6.4-8.2); Sodium Level 140 mmol/L (136-145); Thyroid Stim Hormone (TSH) 3.08 uIU/mL (0.358-3.74); Triglycerides 156 mg/dL; Very Low Density Lipoprotein 31 mg/dL (5-40)
== END | disposition home or self-care (01) ==
LOC: MFPLAB 08:14
PROVIDERS: PCP Family Medicine; Visit Provider Family Medicine
DX: D64.9 Anemia, unspecified (principal); S37.009A Unspecified injury of unspecified kidney, initial encounter; E05.90 Thyrotoxicosis, unspecified without thyrotoxic crisis or storm; E78.00 Pure hypercholesterolemia, unspecified
CPT/HCPCS: 36415; 80053; 80061; 84443; 85025

== ENCOUNTER → 2022-09-18 | Outpatient (CLI) | payer BC, MEDICARE, SELFPAY ==
--- NOTE | 2022-09-18 11:31 | BI_ITS ---
MAMMOGRAPHY - BILATERAL SCREENING REASON FOR EXAM: Female, 67 years old. Routine annual screening examination. PERTINENT HISTORY: Non-contributory. Remote right stereotactic breast biopsy. TECHNIQUE: Digital bilateral breast ross (3D mammographic acquisition) in the CC and MLO projections. 2-D mediolateral oblique (MLO) and craniocaudad (CC) views of both breasts were obtained. CAD: Full Field Digital Mammography with Computer Added Detection was performed. COMPARISON: Comparison is made with prior study dated August 02, 2016 and March 27, 2013. FINDINGS: Breast Composition: There are scattered areas of fibroglandular density. There are no dominant masses or suspicious calcifications. There is a 1.1 cm x 1.6 cm nodular density in the central upper lateral aspect of the right breast. A tissue clip marker is seen at that site. The density has decreased in size as compared to prior study. No other significant abnormalities are identified. There has been no significant change since the prior study. BI/SCRN MAMM (CAD)W/ROSS BILAT IMPRESSION: Stable bilateral screening mammogram. Yearly follow-up mammogram recommended. (A) ASSESSMENT CATEGORY: BIRADS Category 2: Benign. A letter regarding these results will be sent to the patient by the facility within 30 days. Approximately 10% of breast cancers are not detected by mammography. A normal mammogram should not delay biopsy of a clinically suspicious abnormality. [id number] Electronically Signed: Jett Muñoz MD at 13:07 EDT ,
== END | disposition home or self-care (01) ==
LOC: OPBI 11:28
PROVIDERS: PCP Family Medicine; Referring Provider Family Medicine; Visit Provider Family Medicine
DX: Z12.31 Encounter for screening mammogram for malignant neoplasm of breast (principal)
CPT/HCPCS: 77063; 77067

== ENCOUNTER → 2022-09-19 | Outpatient (CLI) | payer BC, MEDICARE, SELFPAY | END | disposition home or self-care (01) | LOC: PSN 08:14 | PROVIDERS: PCP Family Medicine; Referring Provider Nurse Practitioner Family; Visit Provider Nurse Practitioner Family | DX: R42 Dizziness and giddiness (principal); I42.8 Other cardiomyopathies; I47.20 Ventricular tachycardia, unspecified; R07.89 Other chest pain; I51.9 Heart disease, unspecified; R55 Syncope and collapse | CPT/HCPCS: 93225; 93226 ==

== ENCOUNTER → 2023-02-05 | Outpatient (CLI) | payer BC, MEDICARE, SELFPAY ==
[2023-02-05 15:28] LABS: Absolute Lymphocyte Count 1.22 X10^3/uL (0.83-4.51); Absolute Neutrophil Count 5.7 X10^3/uL (2.0-7.7); Basophil# 0.07 X10^3/uL; Basophil% 0.8 % (0-1); Eosinophil# 0.57 X10^3/uL; Eosinophils% 6.7 % (0-5); Hematocrit 36.7 % (37-47); Hemoglobin 11.6 g/dL (12.0-15.0); Lymphocyte # 1.22 X10^3/ul (0.83-4.51); Lymphocyte % 14.4 % (19-41); Mean Corp Hgb Conc 31.6 g/dL (32-36); Mean Corpuscular Hgb 27.2 pg (27.0-32.0); Mean Corpuscular Volume 85.9 fL (81-99); Mean Platelet Vol. 9.1 fl (6.2-12.0); Monocyte# 0.85 X10^3/uL; NRBC Flagged by Analyzer 0 % (0-5); Neutrophil # 5.73 X10^3/uL (2.7-7.7); Neutrophil % 67.9 % (47-70); Platelet Count 247 K/mm3 (150-450); RBC Distribution Width CV 12.9 % (11.6-14.6); RBC Distribution Width SD 40.2 fl (35.1-43.9); Red Blood Count 4.27 M/mm3 (4.2-5.4); White Blood Count 8.5 K/mm3 (4.4-11.0)
== END | disposition home or self-care (01) ==
LOC: MTLAB 12:36
PROVIDERS: PCP Family Medicine; Referring Provider Family Medicine; Visit Provider Family Medicine
DX: D64.9 Anemia, unspecified (principal)
CPT/HCPCS: 36415; 85025

== ENCOUNTER → 2023-06-18 | Outpatient (CLI) | payer BC, MEDICARE, SELFPAY ==
--- NOTE | 2023-06-18 10:53 | RAD_ITS ---
STUDY: X-RAY - RIGHT CLAVICLE REASON FOR EXAM: Female, 68 years old. Pain. TECHNIQUE: 2 views of the right clavicle. COMPARISON: None. FINDINGS: Normal clavicle. There is no demonstrated fracture. There is minimal acromioclavicular arthrosis. Normal visualized sternoclavicular articulation. Normal visualized pulmonary apex. RAD/Clavicle IMPRESSION: Minimal acromioclavicular arthrosis. No demonstrated clavicle fracture. Electronically Signed: Samy Rivera MD at 12:19 EDT ,
--- NOTE | 2023-06-18 11:00 | RAD_ITS ---
STUDY: X-RAY - RIGHT SHOULDER REASON FOR EXAM: Female, 68 years old. Pain. TECHNIQUE: 4 views of the right shoulder. COMPARISON: None. FINDINGS: Normal glenohumeral articulation. There is minimal acromioclavicular arthrosis. Normal acromion. Normal humeral head and visualized proximal humerus. The soft tissue structures are unremarkable. There is no demonstrated fracture. Normal visualized pulmonary apex. RAD/Shoulder min 2 Views IMPRESSION: Minimal acromioclavicular arthrosis. Electronically Signed: Samy Rivera MD at 12:18 EDT ,
--- OUTSIDE RECORDS SUMMARY | 2023-06-19 00:10 | XMS RPT_ITS | CCD ---
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 Name Role Phone Merary Jacobsen Primary Care Provider Allergies Allergy Classification Reported Allergen(s) Allergy Type Date of Onset Reaction(s) Facility (2 sources) Amoxicillin Drug Allergy 05-23-2006 Intolerance [facility] (2 sources) Aspirin Drug Allergy 08-20-2011 Swelling [facility] (2 sources) Erythromycin Drug Allergy 05-23-2006 GI Upset [facility] Medications Completed/Discontinued Medications Medication Drug Class(es) Dates Sig (Normalized) Sig (Original) acetaminophen 325 mg oral tablet (2 sources) Start: 08-20-2011 take 2 tablets by mouth every four hours as needed acetaminophen (TYLENOL) 325 mg tablet Take 2 tablets by mouth every 4 hours as needed for Pain. 0 08/20/2011 Active Problems Active Problems Problem Classification Problem Date Documented Date Episodic/Chronic Asthma (4 sources) Unspecified asthma, uncomplicated; Translations: [Allergic asthma] Onset: 05-27-2006 05-23-2006 Chronic Calculus of urinary tract (2 sources) Urolithiasis ; Translations: [Urinary calculus, unspecified] 05-23-2006 Episodic Cardiac dysrhythmias (2 sources) Ventricular premature beats; Translations: [PVC's (premature ventricular contractions)] Onset: 08-20-2011 08-20-2011 Chronic Disorders of lipid metabolism (2 sources) Hyperlipidemia; Translations: [Hyperlipidemia] Onset: 08-20-2011 08-20-2011 Chronic Esophageal disorders (2 sources) Gastroesophageal reflux disease; Translations: [Esophageal reflux] 05-23-2006 Chronic Past or Other Problems Problem Classification Problem Date Documented Date Episodic/Chronic Other screening for suspected conditions (not mental disorders or infectious disease) (2 sources) Cardiovascular stress test abnormal; Translations: [Abnormal cardiovascular stress test] Onset: 08-20-2011 08-20-2011 Episodic Encounters Encounter Date Encounter Type Care Provider Facility Start: 03-10-2020 End: 03-10-2020 Subsequent hospital visit by physician George Mendez Stacey (Open/1t) Work Phone: [facility] Procedures Date Procedure Procedure Detail Performing Clinician Start: 02-25-2020 EXTERNAL IMAGING Helpdesk Specialist al Provider Start: 06-08-2015 Mammography External P rovider Plan of Treatment Date Care Activity Detail Author Start: 12-08-2019 Influenza vaccination INFLUENZA (#1) [facility] Start: 2019 ADVANCE DIRECTIVE DISCUSSION ADVANCE DIRECTIVE DISCUSSION [facility] Start: 2019 BONE DENSITY BONE DENSITY [facility] Start: 2019 PNEUMOVAX AGE 65 AND OVER WITH 5YR LOOKBACK (#1) PNEUMOVAX AGE 65 AND OVER WITH 5YR LOOKBACK (#1) [facility] Start: 06-07-2016 Mammography MAMMOGRAM [facility] Start: 08-19-2014 DIABETES SCREEN DIABETES SCREEN [facility] Start: 2004 COLORECTAL CANCER SCREENING,SEE MODIFIER COLORECTAL CANCER SCREENING,SEE MODIFIER [facility] Start: 2004 Screening for malign ant neoplasm of colon [facility] Start: 2004 SHINGRIX VACCINE (1 of 2) MANN GRIX VACCINE (1 of 2) [facility] Start: 1999 LIPID SCREEN LIPID SCREEN [facility] Start: 1973 Urine microalbumin profile DTAP,TDAP ,TD (1 - Tdap) [facility] Start: 1972 ANNUAL PCP TEAM CAPACITY MANAGER IVETTE DISEASE VISIT ANNUAL PCP TEAM CHRONIC DISEASE VISIT [facility] Start: 1972 HEPATITIS C SCREENING HEPATITIS C SC REENING [facility] Start: 1972 HIV SCREENING HIV SCREENING [facility] Start: 1972 SPIROMETRY SPIROMETRY [facility] Start: 1966 Adult depression scr eening assessment DEPRESSION SCREENING [facility] Payers Date Payer Category Payer Medicare MEDICARE MEDICAR E A AND B [id number] 2019-Present [place], [place] Medicare [id number] 2019 Unknown [employer] CARD PPO [id number] 2019-Present PPO [id number] Social History Date Type Detail Facility Start: 08-20-2011 Tobacco smoking stat us ARIS Never smoker [facility] Start: 08-20-2011 Alcohol intake Current non-dr relish blender of alcohol (finding) [facility] Start: 1955 Sex Assigned At Not on file [facility] Exposure to SARS-CoV -2 (event) Not sure [facility] Additional Source Comments Source Comments (unrecognize d section and content) In the event this informatio n is protected by the Federal Confidentiality of Alcohol and Drug Abuse Patient Records regulations: The Federal rules restrict any use of the information to criminally investigate or prosecute any alcohol or drug abuse patient.[facility] the event this information is protected by the Federal Confidentiality of Alcohol and Drug Abuse Patient Records regulations: The Federal rules restrict any use of the information to criminally investigate or prosecute any alcohol or drug abuse patient.[facility] FOR RECORDS PERTAINING TO PATIENTS WHO ARE OR HAVE BEEN ENROLLED IN A CHEMICAL DEPENDENCY/SUBSTANCEABUSE PROGRAM, SOME INFORMATION MAY BE OMITTED. This clinical summary was aggregated from multiple sources. Caution should be exercised in using it in the provision of clinical care. This summary normalizes information from multiple sources, and as a consequence, information in this document may materially change the coding, format and clinical context of patient data. In addition, data may be omitted in some cases. CLINICAL DECISIONS SHOULD BE BASED ON THE PRIMARY CLINICAL RECORDS. [facility]. provides no warranty or guarantee of the accuracy or completeness of information in this document.
== END | disposition home or self-care (01) ==
LOC: MTRAD 10:53
PROVIDERS: PCP Family Medicine; Referring Provider Family Medicine; Visit Provider Family Medicine
DX: M25.511 Pain in right shoulder (principal)
CPT/HCPCS: 73000; 73030

== ENCOUNTER → 2023-09-10 | Outpatient (CLI) | payer BC, MEDICARE, SELFPAY ==
[2023-09-10 12:50] LABS: AST(SGOT) 17 U/L (15-37); Alanine Aminotransfer ALT/SGPT 19 U/L (13-56); Cholesterol 130 mg/dL (200); High Density Lipoprotein 50 mg/dL; T4 Total, Thyroxin 5.7 ug/dL (4.8-13.9); Thyroid Stim Hormone (TSH) 3.34 uIU/mL (0.358-3.74); Triglycerides 98 mg/dL; Very Low Density Lipoprotein 20 mg/dL (5-40)
== END | disposition home or self-care (01) ==
LOC: MFPLAB 10:01
PROVIDERS: PCP Family Medicine; Visit Provider Family Medicine
DX: E78.00 Pure hypercholesterolemia, unspecified (principal); E05.90 Thyrotoxicosis, unspecified without thyrotoxic crisis or storm
CPT/HCPCS: 36415; 80061; 84436; 84443; 84450; 84460

== ENCOUNTER 2024-05-10 16:59 | Emergency (ER) | payer BC, MEDICARE, SELFPAY ==
[2024-05-10 16:59] VITALS: BP 143/72; PULSE 73; RESP 20; TEMP 35.7; O2SAT 97
--- NOTE | 2024-05-10 18:20 | EDS_ITS ---
HPI History of Present Illness HPI Narrative: Patient presents with right knee pain began approximately 3 hours prior to arrival. Patient states it began rather suddenly. Patient states it has been waxing and waning. Patient describes it as burning. Patient states nothing makes it worse and nothing makes it better. Patient denies any trauma or injury. Patient denies any paresthesias or weakness. Patient states she has had a prior injury to her meniscus in her right knee. Chief Complaint: Lower Extremity Injury Informant: patient Onset/Context/Timing Onset: Hours (3) Context: Sudden Onset Timing: Waxes and wanes Quality of Pain: Burning Location: Right knee Worsened by: Nothing Relieved by: Nothing Associated Symptoms Associated Symptoms: Negative for Parasthesia, Weakness or Loss of Funtion PFSH [facility] Medical History Non-ischemic cardiomyopathy Left ventricular diastolic dysfunction Near syncope Suspected COVID-19 virus infection (08/2019) Asthma Obesity Nonsustained paroxysmal ventricular tachycardia (04/28/20) Home Medications ?Medication ?Instructions ?Recorded ?Last Taken ?Type cholecalciferol (vitamin D3) 25 1,000 unit PO DAILY najera pplement 06/09/18 11/28/21 History mcg (1,000 unit) tablet albuterol sulfate 2.5 mg/3 mL 2.5 mg inhalation Q4H KS N PRN 08/22/19 07/04/20 History (0.083 %) solution for nebulization Wheezing albuterol sulfate 90 mcg/actuation 2 puff inhalation Q 4H PRN PRN 08/22/19 11/27/21 History aerosol inhaler Wheezing ascorbate calcium (vitamin C) 500 500 mg PO QWEEK supp lement 06/22/20 11/28/21 History mg tablet ranitidine HCl 150 mg tablet 150 mg PO DAILY PRN acid reflux 12/27/21 Unknown History rosuvastatin 5 mg tablet 5 mg PO DAILY 10/01/22 Unkno wn History iron, carbonyl 45 mg tablet 45 mg PO QWEEK 05/15/23 Un known History vitamin B complex (B 1 tab PO QWEEK 05/15/23 Unkn own History Complex-Vitamin B12 tablet) lisinopril 10 mg tablet 10 mg PO DAILY #90 tabs 08/29 Unknown Rx carvedilol 12.5 mg tablet 12.5 mg PO BID #180 TABLETS 11/29/23 Unknown Rx Allergy/AdvReac Type Severity Reaction Status Date / Time nettle Allergy Severe Anaphylaxis Verified 05/10/24 17:02 aspirin Allergy Swelling Verified 05/10/24 17:02 amoxicillin AdvReac Other Verified 05/10/24 17:02 erythromycin base AdvReac Nausea/Vom/ Verified 05/10/24 17:02 Diarrhea levofloxacin (From Levaquin) AdvReac Other Verified 05/10/24 17:02 sulfamethoxazole (From AdvReac Other Verified 05/10/24 17:02 Bactrim) trimethoprim (From Bactrim) AdvReac Other Verified 05/10/24 17:02 Family History Mother Heart disease ASD Uncle Heart disease valvular heart disease Surgical History History of left heart catheterization (07/04/20) H/O arthroscopic knee surgery History of repair of rotator cuff History of tubal ligation Social History Smoking Status: Never smoker alcohol intake: never substance use type: does not use caffeine: Yes (Occasion soda) ROS ROS ED Constitutional Constitutional ED: Denies chills or fever(s) Eyes Eyes: Denies blurry vision or change in vision ENT ENT ED: Denies rhinorrhea or sore throat Cardiovascular Cardiovascular: Denies chest pain or palpitations Respiratory/Chest Respiratory/Chest: Reports cough; Denies dyspnea Gastrointestinal Gastrointestinal: Denies nausea or vomiting Genitourinary Genitourinary ED: Denies dysuria or hematuria Musculoskeletal Musculoskeletal: Denies back pain or neck pain Integumentary Denies abscess or rash Neurologic Neurologic: Denies headache(s) or weakness Allergic/Immunologic Allergic/Immunologic ED: Denies mouth swelling or urticaria EXAM Physical Exam Const Vital Signs: 05/10/24 16:59 Temperature 96.2 F L Temperature Source Temporal Pulse Rate 73 Respiratory Rate 20 H Blood Pressure 143/72 H Blood Pressure Mean 95 Pulse Ox 97 Oxygen Delivery Method Room Air Positive well nourished and well developed General Appearance ED: well developed and NAD HEENT Reports moist mucous membranes Neck full ROM and supple Extremity Extremity Narrative: There is tenderness along the medial and lateral joint lines of the right knee. There is no bony crepitance or step-off. There is no deformity noted. There is no effusion noted. There is no laxity appreciated. Varus and valgus stress te st were negative. Windy's test was negative. There is no erythema or warmth. Range of motion was slightly limited in all motions of the right knee secondary to pain. Strength is 5/5 bilaterally in the lower extremities. There are no sensory deficits noted. There is no calf tenderness. Pedal pulses are equal bilaterally. Neuro oriented x3, CN's II-XII intact bilaterally, moves all extremities and no sensory deficits noted Sensorium / Orientation: alert Motor Exam: strength 5/5 throughout Psych mental status grossly normal MDM MDM MDM Narrative Medical decision making narrative: Differential diagnosis includes meniscus tear, internal derangement, occult fracture, osteochondritis dissecans, and degenerative arthritis. X-rays of the right knee will be obtained to assess for degenerative arthritis, occult fracture, and loose body. Radiography Diagnostic Testing: Clinical Impression(s) from Imaging Studies Knee X-Ray 05/10/24 18:35 IMPRESSION: Ovoid synovial osteochondroma measuring approximately 0.9 cm in long axis. Mild degenerative osteoarthritis. No acute osseous abnormalities are demonstrated. Reading Location: [facility] X-rays of the right knee were obtained. There are 5 views. On my independent interpretation, there is a loose body in the joint. There are some degenerative changes noted. There is no acute fracture. Radiologist also interpreted the x- ray and felt that the loose body was a synovial osteochondroma. Treatment and Re-Evaluation Narrative: Patient was advised of her findings. Patient was instructed to ice and elevate the right knee. Patient was given referral for orthopedics. Patient was instructed to take Tylenol or ibuprofen as needed for pain. Patient understood and was agreeable with the plan. All questions were answered. Discharge Plan Triage Chief Complaint: Lower Extremity Injury ED Provider: Kosta Bhat Dx/Rx/DC Orders Clinical Impression: Acute pain of right knee, Elevated blood pressure reading Instructions: ED Knee Pain of Uncertain Cause Prescriptions: No Action ascorbate calcium (vitamin C) 500 mg tablet 500 mg PO QWEEK ranitidine HCl 150 mg tablet 150 mg PO DAILY PRN (Reason: acid reflux) iron, carbonyl 45 mg tablet 45 mg PO QWEEK vitamin B complex [B Complex-Vitamin B12] Tablet 1 tab PO QWEEK rosuvastatin 5 mg tablet 5 mg PO DAILY cholecalciferol (vitamin D3) 1,000 UNIT tablet 1,000 unit PO DAILY albuterol sulfate 2.5 MG/3 ML solution for nebulization 2.5 mg INHALATION Q4H PRN PRN (Reason: Wheezing) albuterol sulfate 1 INHALER inhaler 2 puff INHALATION Q4H PRN PRN (Reason: Wheezing) lisinopril 10 mg tablet 10 mg PO DAILY Qty: 90 3RF carvedilol 12.5 mg tablet 12.5 mg PO BID Qty: 180 3RF Primary Care Provider: Merary Jacobsen Referrals: Merary Jacobsen MD [Primary Care Provider] - 5-7 Days Ac Alberts DO [Med Staff - Active Staff] - 5-7 Days Print Language: Palestinian Disposition Disposition: Home, Self Care
--- NOTE | 2024-05-10 18:35 | RAD_ITS ---
PROCEDURE: KNEE 4 OR MORE VIEWS REASON FOR EXAM: Pain. No known injury. TECHNIQUE: 4 view(s) of the right knee COMPARISON: No relevant prior. FINDINGS: No fractures are demonstrated. Mild medial marginal spurring. Marginal spurring of the patella. Ovoid calcific density, central aspect of the joint. No dislocation or subluxations. No effusion. Soft tissues are unremarkable. RAD/Knee 4 or More Views IMPRESSION: Ovoid synovial osteochondroma measuring approximately 0.9 cm in long axis. Mild degenerative osteoarthritis. No acute osseous abnormalities are demonstrated. Reading Location: [facility]
[2024-05-10 19:44] VITALS: BP 134/74; PULSE 87; RESP 16; TEMP 36.1; O2SAT 100
== END 2024-05-10 19:45 | disposition home or self-care (01) ==
PROVIDERS: Emergency Provider Emergency Medicine; PCP Family Medicine; Visit Provider Emergency Medicine
DX: M25.561 Pain in right knee (principal); I42.8 Other cardiomyopathies; R03.0 Elevated blood-pressure reading, without diagnosis of hypertension; J45.909 Unspecified asthma, uncomplicated; Z79.51 Long term (current) use of inhaled steroids; Z79.899 Other long term (current) drug therapy
CPT/HCPCS: 73564; 99282

== ENCOUNTER → 2024-12-01 | Outpatient (CLI) | payer BC, MEDICARE, SELFPAY ==
--- NOTE | 2024-12-01 07:03 | BI_ITS ---
EXAM: SCRN MAMM (CAD)W/ROSS BILAT DATE: 12/01/2024 CLINICAL HISTORY: F, Age 69 y/o , SCREENING No family history. History of remote right stereotactic breast biopsy. TECHNIQUE: SCRN MAMM (CAD)W/ROSS BILAT COMPARISON: Prior exam(s) dated September 18, 2022.. FINDINGS: TISSUE DENSITY: There are scattered areas of fibroglandular density. Bilateral Breast Mammographic Findings: Stable 1.1 cm x 1.6 cm nodular density in the central upper lateral aspect of the right breast. A tissue clip marker is seen at that site There are no other dominant masses, areas of architectural distortion, or suspicious calcifications. BI/SCRN MAMM (CAD)W/ROSS BILAT IMPRESSION: Stable examination. OVERALL FINAL ASSESSMENT BI-RADS 2: BENIGN RECOMMENDATION: Routine annual follow-up in 1 Year A letter with findings and recommendations will be mailed to the patient. Reading Location: [facility]
--- OUTSIDE RECORDS SUMMARY | 2024-12-01 07:05 | XMS RPT_ITS | CCD ---
Author Organization [facility] Care Team Providers [facility] Nurse Name Role Phone Merary Jacobsen Primary Care Provider [phone] Dr. Merary Jacobsen Primary Care Provider Dr. Merary Jacobsen Referring Provider Dr. Genaro Pickard Attending Provider Dr. Hung Rea Emergency Provider [phone] Afia Regalado Admit Provider Dr. Afia Regalado Other Provider Dr. Tiara Monsivais Attending Provider Dr. Sabino Madison Other Provider Chinmay UNDERWRITING ANALYST, UNDERWRITING ANALYST-C Leyla Attending Provider Flor, Dr. Buckley Attending Provider Dr. Sabino Madison Attending Provider Dr. Sabino Madison Referring Provider Dr. Shea Proctor Attending Provider Chen UNDERWRITING ANALYST, UNDERWRITING ANALYST-C Delvin Sanchez Attending Provider Dr. Merary Jacobsen Primary Care Provider Dr. Merary Jacobsen Referring Provider [phone] Genaro Pickard Attending Provider Dr. Hung Rea Emergency Provider [phone] Afia Regalado Admit Provider Fabricio, Dr. Afia Herman Other Provider Dr. Tiara Monsivais Attending Provider Dr. aSbino Madison Attending Provider Dr. Sabino Madison Other Provider Dr. Sabino Madison Referring Provider 1([facility])[phone] Dr. Marcio Ray Attending Provider 1([facility])[phone] Dr. Shea Proctor Attending Provider Chen UNDERWRITING ANALYST, UNDERWRITING ANALYST-C Delvin Sanchez Attending Provider Dr. Merary Jacobsen Primary Care Provider Dr. Merary Jacobsen Referring Provider Dr. Marcio Ray Attending Provider 1([facility])[phone] Chen UNDERWRITING ANALYST, UNDERWRITING ANALYST-C Delvin Sanchez Attending Provider Dr. Merary Jacobsen Primary Care Provider Chen UNDERWRITING ANALYST, MICHAEL-Antwan Sanchez Attending Provider Dr. Merary Jacobsen Referring Provider Jarad RODRIGUEZ, MICHAEL-Antwan Boss Attending Provider Dr. Merary Jacobsen Primary Care Provider Dr. Merary Jacobsen Referring Provider MARU Abraham NP Attending Provider MERARY JACOBSEN Primary Care Unavailable ALEKS POLLARD Attending Unavailable McMorrow Al RODRIGUEZ Referring Unavailable McMorrow Al RODRIGUEZ Attending Unavailable Delvin Hernandez Primary Care Unavailable Merary Jacobsen Primary Care Unavailable Kosta Bhat Attending Unavailable Allergies Allergy Classification Reported Allergen(s) Allergy Type Date of Onset Reaction(s) Facility (20 sources) Amoxicillin; Translations: [AMOXICILLIN] Drug Allergy 7 Intolerance [facility] (20 sources) Aspirin; Translations: [ASPIRIN] Drug Allergy 2 Swelling [facility] (20 sources) Erythromycin; Translations: [ERYTHROMYCIN] Drug Allergy 7 GI Upset [facility] (18 sources) levoFLOXacin Drug Allergy 2 Other [facility] (18 sources) Sulfamethoxazole Drug Allergy 2 Other [facility] (18 sources) Trimethoprim Drug Allergy 2 Other [facility] (18 sources) Urtica preparation Drug Allergy 2 Anaphylaxis [facility] (1 source) Amoxicillin Drug Allergy 5 [facility] (1 source) Aspirin Drug Allergy 5 [facility] (1 source) Erythromycin Drug Allergy 5 [facility] (1 source) levoFLOXacin Drug Allergy 5 [facility] (1 source) Sulfamethoxazole Drug Allergy 5 [facility] (1 source) Trimethoprim Drug Allergy 5 [facility] (1 source) nettle Drug allergy (disorder) 5 [facility] Medications Current Medications Medication Drug Class(es) Dates Sig (Normalized) Sig (Original) albuterol 0.83 mg/ml inhalation solution (20 sources) beta2-Adrenergic Agonist Start: 08-22-2019 take 2.5 mg by inhalation every four hours as needed Albuterol Sulfate Active 2.5 MG INHALATION EVERY 4 HOURS NEEDED August 22, 2019 12:00am Start: 08-22-2019 take 1 puff(s) by in halation every four hours as needed Albuterol Sulfate Active 2 PUFF INHALATION EVERY 4 HOURS NEEDED August 22, 2019 12:00am Start: 05-27-2006 take 2 puff(s) by in halation every four hours as needed PROAIR HFA 90 MCG/ACTUATION AEROSOL INHALER 2 puffs every 4 hours as needed. 1 3 05/27/2006 Active Comment on above: 2 puffs every 4 hour s as needed. calcium ascorbate 500 mg oral tablet (18 sources) Start: 1 take 500 mg by mouth every week Ascorbate Calcium (Vitamin C) Active 500 MG PO EVERY WEEK June 22, 2020 12:00am cholecalciferol 0.025 mg oral tablet (20 sources) Vitamin D Start: 9 take 1000 [IU] by mouth once daily Cholecalciferol (Vitamin D3) Active 1000 UNIT PO DAILY June 09, 2018 1:00am Start: 08-20-2011 take 4 capsules by m outh once daily Cholecalciferol, Vitamin D3, 1,000 unit Cap Take 4 capsules by mouth once daily. 0 08/20/2011 Active Comment on above: Take 4 capsules by m outh once daily. Fluticasone Propion-Salmeterol (20 sources) Corticosteroid, beta2-Adrenergic Agonist Start: 12-27-2021 Fluticasone Propion-Salmeterol Active 1 INH INHALATION TWICE A DAY December 26, 2021 11:00pm Start: 12-27-2021 Fluticasone Pr opion-Salmeterol Active 1 INH INHALATION TWICE A DAY December 27, 2021 12:00am Start: 10-12-2020 End: 12-27-2021 Fluticasone Propion-Salmeter ol Discontinued 1 INH INHALATION TWICE A DAY October 12, 2020 12:00am December 27, 2021 9:33am Start: 06-09-2018 End: 10-12-2020 Fluticasone Propion-Salmeter ol Discontinued 1 EACH IH TWICE A DAY June 09, 2018 12:00am October 12, 2020 7:39am Start: 06-09-2018 End: 10-12-2020 Fluticasone Propion-Salmeter ol Discontinued 1 EACH IH TWICE A DAY June 09, 2018 1:00am October 12, 2020 8:39am Start: 08-20-2011 take 1 puff(s) by [facility] twice daily fluticasone-salmeterol (ADVAIR DISKUS) 250-50 mcg/dose DsDv Inhale 1 Puff as instructed twice daily. rinse and gargle mouth with water after each use 0 08/20/2011 Active Comment on above: Inhale 1 Puff as ins tructed twice daily. rinse and gargle mouth with water after each use iron carbonyl 45 mg oral tablet (10 sources) Start: 05-15-2023 take 45 mg by mouth every week Iron, Carbonyl Active 45 MG PO EVERY WEEK May 15, 2023 12:42pm Start: 12-27-2021 End: 05-15-2023 take 45 mg by mouth once daily Iron, Carbonyl Disconti nued 45 MG PO DAILY December 27, 2021 12:00am May 15, 2023 12:42pm lisinopril 10 mg oral tablet (20 sources) Angiotensin Converting Enzyme Inhibitor Start: 04-05-2022 End: 06-11-2023 take 10 mg by mouth once daily Lisinopril Active 10 MG PO DAILY June 11, 2023 10:14am Start: 05-16-2021 End: 12-27-2021 take 10 mg by mouth once daily Lisinopril Discontinued 10 MG PO DAILY December 01, 2021 4:22pm December 27, 2021 10:13am Start: 02-28-2021 End: 05-16-2021 take 5 mg by mouth once daily Lisinopril Discontinued 5 MG PO DAILY February 28, 2021 1:00am May 16, 2021 10:32am Start: 02-20-2021 End: 02-28-2021 take 2.5 mg by mouth once daily Lisinopril Discontinued 2.5 MG PO DAILY February 21, 2021 12:22am February 28, 2021 1:19pm Start: 02-07-2021 End: 02-20-2021 take 5 mg by mouth once daily Lisinopril Discontinued 5 MG PO DAILY February 07, 2021 9:15am February 21, 2021 12:22am Start: 07-04-2020 End: 02-07-2021 take 2.5 mg by mouth once daily Lisinopril Discontinued 2.5 MG PO DAILY 60 July 04, 2020 12:00am February 07, 2021 9:15am raNITIdine 150 mg oral tablet (11 sources) Histamine-2 Receptor Antagonist Start: 12-27-2021 take 150 mg by mouth once daily Ranitidine Hcl Active 150 MG PO DAILY December 27, 2021 12:00am Start: 08-20-2011 take 1 tablet by geovanni th twice daily as needed ranitidine (ZANTAC 75) 75 mg tablet Take 1 tablet by mouth twice daily as needed. 0 08/20/2011 Active Comment on above: Take 1 tablet by geovanni th twice daily as needed. rosuvastatin calcium 5 mg oral tablet (3 sources) HMG-CoA Reductase Inhibitor Start: take 5 mg by mouth once daily Rosuvastatin Active 5 MG PO DAILY October 01, 2022 12:00am Vitamin B Complex (B Complex-Vitamin B12) tablet (7 sources) Start: take 1 tablet by mouth every week Vitamin B Complex (B Complex-Vitamin B12) tablet Active 1 TABLET PO EVERY WEEK May 15, 2023 12:42pm Start: 04-05-2022 End: 05-15-2023 take 1 tablet by mouth once daily Vitamin B Complex (B Complex-Vitamin B12) tablet Discontinued 1 TABLET PO DAILY April 05, 2022 1:00am May 15, 2023 12:43pm Start: 04-05-2022 take 1 tablet by geovanni th once daily Vitamin B Complex (B Complex-Vitamin B12) tablet Active 1 TABLET PO DAILY April 05, 2022 1:00am Start: 04-05-2022 take 1 tablet by geovanni th once daily Vitamin B Complex (B Complex-Vitamin B12) tablet Active 1 TABLET PO DAILY April 05, 2022 12:00am Completed/Discontinued Medications Medication Drug Class(es) Dates Sig (Normalized) Sig (Original) acetaminophen 325 mg oral tablet (2 sources) Start: 08-20-2011 take 2 tablets by mouth every four hours as needed acetaminophen (TYLENOL) 325 mg tablet Take 2 tablets by mouth every 4 hours as needed for Pain. 0 08/20/2011 Active Comment on above: Take 2 tablets by mo ut every 4 hours as needed for Pain. amylase [id number] unt / lipase [id number] unt / protease 44740 unt delayed release oral capsule (12 sources) Start: 12-18-2021 End: 04-05-2022 take [id number] capsules by mouth three times daily at mealtime Wmbyvy-Wqkskfiu-Upo lase (Creon) 24,000-76,000 -120,000 unit capsule,delayed release(DR/EC) Discontinued 1 CAP PO THREE TIMES A DAY 90 December 18, 2021 12:00am April 05, 2022 9:42am administer with meals and/or snacks carvedilol 12.5 mg oral tablet (20 sources) alpha-Adrenergic Marlyn, beta-Adrenergic Marlyn Start: 10-12-2020 End: 12-28-2022 take 12.5 mg by mouth twice daily at mealtime Carvedilol Discontinued 12.5 MG PO TWICE A DAY 180 November 01, 2021 1:36pm Elmer 29th, 2022 10:33am must administer with a meal/food Start: 10-12-2020 End: 10-12-2020 take 1 tablet by mouth twice daily at mealtime Carvedilol (Coreg) 6.25 mg tablet Discontinued 6.25 MG PO TWICE A DAY October 12, 2020 8:42am October 12, 2020 9:06am must administer with a meal/food Start: 07-12-2020 End: 10-12-2020 take 3.125 mg by mouth twice daily at mealtime Carvedilol (Coreg) 6.25 mg tablet Discontinued 3.125 MG PO TWICE A DAY 60 July 12, 2020 11:52am October 12, 2020 8:43am must administer with a meal/food Start: 07-04-2020 End: 07-12-2020 take 1 tablet by mouth twice daily at mealtime Carvedilol (Coreg) 6.25 mg tablet Discontinued 6.25 MG PO TWICE A DAY 60 July 04, 2020 12:00am July 12, 2020 11:52am must administer with a meal/food cetirizine hydrochloride 10 mg oral tablet (2 sources) Histamine-1 Receptor Antagonist Start: 08-20-2011 take 1 tablet by mouth once daily as needed cetirizine (ZYRTEC) 10 mg tablet Take 1 tablet by mouth once daily as needed. 0 08/20/2011 Active Comment on above: Take 1 tablet by geovanni once daily as needed. DALILA SEED/ALA/LINOLEIC/OL EIC (DALILA SEED OIL-OMEGA 3-6-9) 1,000(630-210- 72) mg Cap (2 sources) Start: 08-20-2011 take 1 capsule by mouth once daily DALILA SEED/ALA/LINOLEIC/ OLEIC (DALILA SEED OIL-OMEGA 3-6-9) 1,000(630-210- 72) mg Cap Take 1,000 mg by mouth once daily. 0 08/20/2011 Active Comment on above: Take 1,000 mg by geovanni th once daily. clopidogrel 75 mg oral tablet (18 sources) P2Y12 Platelet Inhibitor Start: 06-23-2020 End: 07-04-2020 take 1 tablet by mouth once daily Clopidogrel (Plavix) 75 mg tablet Discontinued 75 MG PO DAILY 30 June 23, 2020 12:00am July 04, 2020 11:13am COMPOUNDED PRESCRIPTION (2 sources) Start: 08-20-2011 COMPOUNDED PRESCRIPTION Take by mouth once daily. Green [employer] Connors 0 08/20/2011 Active Comment on above: Take by mouth once d aily. [employer] ferrous fumarate 325 mg oral tablet (12 sources) Start: 12-18-2021 End: 12-27-2021 take 325 mg by mouth once daily Ferrous Fumarate Discontinued 325 MG PO DAILY December 18, 2021 12:00am December 27, 2021 9:33am Magnesium (2 sources) Start: 08-20-2011 take 1 tablet by mouth every week Magnesium 250 mg Tab Take 1 tablet by mouth once each week. 0 08/20/2011 Active Comment on above: Take 1 tablet by geovanni th once each week. 24 hr metoprolol succinate 50 mg extended release oral tablet (20 sources) beta-Adrenergic Marlyn Start: 06-22-2020 End: 07-04-2020 take 1 tablet by mouth once daily Metoprolol Succinate (Toprol Xl) 50 mg tablet extended release 24 hr Discontinued 50 MG PO DAILY June 22, 2020 12:00am July 04, 2020 11:13am Start: 08-20-2011 take 1 tablet by geovanni th twice daily metoprolol tartrate, short acting, 25 mg tablet Take 1 tablet by mouth twice daily. 0 08/20/2011 Active Comment on above: Take 1 tablet by geovanni th twice daily. Multivitamins-Minerals -Lutein (CENTRUM SILVER) Tab (2 sources) Start: 08-20-19 take 1 tablet by mouth every week Multivitamins-Lueders als-Lutein (CENTRUM SILVER) Tab Take 1 tablet by mouth once each week. 0 08/20/2011 Active Comment on above: Take 1 tablet by geovanni th once each week. ondansetron 4 mg disintegrating oral tablet (12 sources) Serotonin-3 Receptor Antagonist Start: 12-19-19 End: 04-05-20 take 4 mg by mouth every eight hours Ondansetron Discontinued 4 MG PO Q8H December 18, 2021 12:00am April 05, 2022 9:42am pantoprazole 40 mg delayed release oral tablet (14 sources) Proton Pump Inhibitor Start: 12-02-19 End: 12-28-19 take 1 tablet by mouth once daily Pantoprazole (Protonix) 40 mg tablet,delayed release (DR/EC) Discontinued 40 MG PO DAILY December 01, 2021 12:00am December 27, 2021 9:32am potassium gluconate 2.5 meq oral tablet (2 sources) Start: 08-20-19 12 take 1 tablet by mouth every week Potassium 99 mg Tab Take 99 mg by mouth once each week. 0 08/20/2011 Active Comment on above: Take 99 mg by mouth once each week. promethazine hydrochloride 25 mg oral tablet (9 sources) Phenothiazine Start: 12-28-19 End: 04-05-20 22 take 25 mg by mouth three times daily Promethazine Discontinued 25 MG PO THREE TIMES A DAY December 27, 2021 12:00am April 05, 2022 9:42am psyllium 520 mg oral capsule (2 sources) Start: 08-20-19 12 take 1 capsule by mouth once daily, then take 1 capsule by mouth psyllium Husk (METAMUCIL) 0.52 g capsule Take 1 capsule by mouth once daily. 0 08/20/2011 Active Comment on above: Take 1 capsule by mo [facility] once daily. zafirlukast 20 mg oral tablet (2 sources) Leukotriene Receptor Antagonist Start: 08-20-19 12 take 1 tablet by mouth every twelve hours as needed zafirlukast 20 mg tablet Take 1 tablet by mouth twice daily as needed. 0 08/20/2011 Active Comment on above: [facility] as needed. Problems Active Problems Problem Classification Problem Date Documented Da te Episodic/Chronic Acute and unspecified renal failure (20 sources) Injury of kidney; Translations: [Acute kidney failure, unspecified] Episodic Asthma (4 sources) Unspecified asthma, uncomplicated; Translations: [Allergic asthma] Onset: 7 05-23-2006 Chronic Calculus of urinary tract (2 sources) Urolithiasis ; Translations: [Urinary calculus, unspecified] 05-23-2006 Episodic Cardiac dysrhythmias (20 sources) Ventricular premature beats; Translations: [Nonsustained paroxysmal ventricular tachycardia] Onset: 2 08-20-2011 Chronic Cardiac dysrhythmias (20 sources) Palpitations; Translations: [Palpitations] Episodic Conditions associated with dizziness or vertigo (5 sources) Lightheadedness; Translations: [Dizziness and giddiness] 09-18-2022 Episodic Deficiency and other anemia (14 sources) Anemia; Translations: [Anemia, unspecified] 02-15-2022 Episodic Deficiency and other anemia (4 sources) Anemia, unspecified; Translations: [Anemia, unspecified] Episodic 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; 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 Disorders of lipid metabolism (2 sources) Hyperlipidemia; Translations: [Hyperlipidemia] Onset: 2 08-20-2011 Chronic Esophageal disorders (2 sources) Gastroesophageal reflux disease; Translations: [Esophageal reflux] 05-23-2006 Chronic Fluid and electrolyte disorders (20 sources) Dehydration; Translations: [Dehydration] Episodic Malaise and fatigue (20 sources) Fatigue; Translations: [Other fatigue] Episodic Nonspecific chest pain (20 sources) Chest pain; Translations: [Chest pain, unspecified] 03-01-2021 Episodic Other and ill-defined heart disease (18 sources) Left ventricular diastolic dysfunction ; Translations: [Heart disease, unspecified] 06-29-2020 Chronic Other circulatory disease (14 sources) Low blood pressure; Translations: [Hypotension, unspecified] 12-02-2021 Episodic Other circulatory disease (8 sources) Hypotension, unspecified; Translations: [Hypotension, unspecified] Episodic Other gastrointestinal disorders (14 sources) Diarrhea; Translations: [Diarrhea, unspecified] 12-02-2021 Episodic Other gastrointestinal disorders (8 sources) Diarrhea, unspecified; Translations: [Diarrhea] Episodic Other injuries and conditions due to external causes (18 sources) Injury of left shoulder; Translations: [Unspecified injury of left shoulder and upper arm, initial encounter] 02-08-2020 Episodic Other non-traumatic joint disorders (1 source) Effusion, right knee; Translations: [Effusion of right knee] Onset: 5 Episodic Other non-traumatic joint disorders (1 source) Effusion, unspecified knee; Translations: [Knee swelling] Onset: 5 Episodic Other screening for suspected conditions (not mental disorders or infectious disease) (4 sources) Cardiovascular stress test abnormal; Translations: [Encounter for screening for osteoporosis] Onset: 2 08-20-2011 Episodic Jonna-; endo-; and myocarditis; cardiomyopathy (except that caused by tuberculosis or sexually transmitted disease) (20 sources) Cardiomyopathy; Translations: [Other cardiomyopathies] Chronic Syncope (18 sources) Near syncope; Translations: [Syncope and collapse] 06-29-2020 Episodic Past or Other Problems Problem Classification Problem Date Documented Da te Episodic/Chronic Other non-traumatic joint disorders (1 source) Pain in right knee; Translations: [Pain in right knee] Onset: 07-10-2024 Episodic Results Test Name Value Interpretation Reference Range Facility CBC W Auto Differential pane l (Bld)on 07-25-2024 Basophils (Bld) [#/Vol] 0.05 10*3/uL Normal <0.11 [facility] Comment on above: Order Comment: Speci men Type: BLOOD SPECIMEN Ordering Facility: [facility] Address: [address] [place] [address] Performed By: #### 5 7021-8 #### [facility] CLIA [id number] [address] [place] [address] [place] Basophils/100 WBC (Bld) 0.7 % Normal C [facility] Comment on above: Order Comment: Speci men Type: BLOOD SPECIMEN Ordering Facility: [facility] Address: [address] [place] [address] Performed By: #### 5 7021-8 #### [facility] CLIA [id number] [address] [place] [address] [place] Differential cell count method Nom (Bld) Auto Normal [facility] Comment on above: Order Comment: Speci men Type: BLOOD SPECIMEN Ordering Facility: [facility] Address: [address] [place] [address] Performed By: #### 5 7021-8 #### [facility] CLIA [id number] [address] [place] [address] [place] Eosinophils (Bld) [#/Vol] 0.49 10*3/uL High <0.46 [facility] Comment on above: Order Comment: Speci men Type: BLOOD SPECIMEN Ordering Facility: [facility] Address: [address] [place] [address] Performed By: #### 5 7021-8 #### [facility] CLIA [id number] [address] [place] [address] [place] Eosinophils/100 WBC (Bld) 6.6 % Normal [facility] Comment on above: Order Comment: Speci men Type: BLOOD SPECIMEN Ordering Facility: [facility] Address: [address] [place] [address] Performed By: #### 5 7021-8 #### [facility] CLIA [id number] [address] [place] [address] [place] Erythrocyte distribution width (RBC) [Ratio] 12.9 % Normal 11.5-15.0 [facility] Comment on above: Order Comment: Speci men Type: BLOOD SPECIMEN Ordering Facility: [facility] Address: [address] [place] [address] Performed By: #### 5 7021-8 #### [facility] CLIA [id number] [address] [place] [address] [place] Hematocrit (Bld) [Volume fraction] 37.5 % Normal 36.0-46.0 [facility] Comment on above: Order Comment: Speci men Type: BLOOD SPECIMEN Ordering Facility: [facility] Address: [address] [place] [address] Performed By: #### 5 7021-8 #### [facility] CLIA [id number] [address] [place] [address] [place] Hemoglobin (Bld) [Mass/Vol] 12.5 g/dL Normal 11.5-15.5 [facility] Comment on above: Order Comment: Speci men Type: BLOOD SPECIMEN Ordering Facility: [facility] Address: [address] [place] [address] Performed By: #### 5 7021-8 #### [facility] CLIA [id number] [address] [place] [address] [place] Immature granulocytes (Bld) [#/Vol] 10*3/uL Normal <0.10 [facility] Comment on above: Order Comment: Speci men Type: BLOOD SPECIMEN Ordering Facility: [facility] Address: [address] [place] [address] Performed By: #### 5 7021-8 #### [facility] CLIA [id number] [address] [place] [address] [place] Immature granulocytes/100 WBC (Bld) 0.3 % Normal [facility] Comment on above: Order Comment: Speci men Type: BLOOD SPECIMEN Ordering Facility: [facility] Address: [address] [place] [address] Performed By: #### 5 7021-8 #### [facility] CLIA [id number] [address] [place] [address] [place] Lymphocytes (Bld) [#/Vol] 1.84 10*3/uL Normal 1.00-4.00 [facility] Comment on above: Order Comment: Speci men Type: BLOOD SPECIMEN Ordering Facility: [facility] Address: [address] [place] [address] Performed By: #### 5 7021-8 #### [facility] CLIA [id number] [address] [place] [address] [place] Lymphocytes/100 WBC (Bld) 24.9 % Normal [facility] Comment on above: Order Comment: Speci men Type: BLOOD SPECIMEN Ordering Facility: [facility] Address: [address] [place] [address] Performed By: #### 5 7021-8 #### [facility] CLIA [id number] [address] [place] [address] [place] MCH (RBC) [Entitic mass] 27.8 pg Normal 26.0-34.0 [facility] Comment on above: Order Comment: Speci men Type: BLOOD SPECIMEN Ordering Facility: [facility] Address: [address] [place] [address] Performed By: #### 5 7021-8 #### [facility] CLIA [id number] [address] [place] [address] [place] MCHC (RBC) [Mass/Vol] 33.3 g/dL Normal 30.5-36.0 [facility] Comment on above: Order Comment: Speci men Type: BLOOD SPECIMEN Ordering Facility: [facility] Address: [address] [place] [address] Performed By: #### 5 7021-8 #### [facility] CLIA [id number] [address] [place] [address] [place] MCV (RBC) [Entitic vol] 83.5 fL Normal 80.0-100.0 C [facility] Comment on above: Order Comment: Speci men Type: BLOOD SPECIMEN Ordering Facility: [facility] Address: [address] [place] [address] Performed By: #### 5 7021-8 #### [facility] CLIA [id number] [address] [place] [address] [place] Monocytes (Bld) [#/Vol] 0.58 10*3/uL Normal <0.87 [facility] Comment on above: Order Comment: Speci men Type: BLOOD SPECIMEN Ordering Facility: [facility] Address: [address] [place] [address] Performed By: #### 5 7021-8 #### [facility] CLIA [id number] [address] [place] [address] [place] Monocytes/100 WBC (Bld) 7.8 % Normal C [facility] Comment on above: Order Comment: Speci men Type: BLOOD SPECIMEN Ordering Facility: [facility] Address: [address] [place] [address] Performed By: #### 5 7021-8 #### [facility] CLIA [id number] [address] [place] [address] [place] Neutrophils (Bld) [#/Vol] 4.42 10*3/uL Normal 1.45-7.50 [facility] Comment on above: Order Comment: Speci men Type: BLOOD SPECIMEN Ordering Facility: [facility] Address: [address] [place] [address] Performed By: #### 5 7021-8 #### [facility] CLIA [id number] [address] [place] [address] [place] Neutrophils/100 WBC (Bld) 59.7 % Normal [facility] Comment on above: Order Comment: Speci men Type: BLOOD SPECIMEN Ordering Facility: [facility] Address: [address] [place] [address] Performed By: #### 5 7021-8 #### [facility] CLIA [id number] [address] [place] [address] [place] Nucleated RBC (Bld) [#/Vol] 10*3/uL Normal <0.01 [facility] Comment on above: Order Comment: Speci men Type: BLOOD SPECIMEN Ordering Facility: [facility] Address: [address] [place] [address] Performed By: #### 5 7021-8 #### [facility] CLIA [id number] [address] [place] [address] [place] Nucleated RBC/100 WBC (Bld) [Ratio] 0.0 /100 WBC Normal [facility] Comment on above: Order Comment: Speci men Type: BLOOD SPECIMEN Ordering Facility: [facility] Address: [address] [place] [address] Performed By: #### 5 7021-8 #### [facility] CLIA [id number] [address] [place] [address] [place] Platelet mean volume (Bld) [Entitic vol] 8.6 fL Low 9.0-12.7 [facility] Comment on above: Order Comment: Speci men Type: BLOOD SPECIMEN Ordering Facility: [facility] Address: [address] [place] [address] Performed By: #### 5 7021-8 #### [facility] CLIA [id number] [address] [place] [address] [place] Platelets (Bld) [#/Vol] 270 10*3/uL Normal 150-400 [facility] Comment on above: Order Comment: Speci men Type: BLOOD SPECIMEN Ordering Facility: [facility] Address: [address] [place] [address] Performed By: #### 5 7021-8 #### [facility] CLIA [id number] [address] [place] [address] [place] RBC (Bld) [#/Vol] 4.49 10*6/uL Normal 3.90-5.20 [facility] Comment on above: Order Comment: Speci men Type: BLOOD SPECIMEN Ordering Facility: [facility] Address: [address] [place] [address] Performed By: #### 5 7021-8 #### [facility] CLIA [id number] [address] [place] [address] [place] WBC (Bld) [#/Vol] 7.40 10*3/uL Normal 3.70-11.00 [facility] Comment on above: Order Comment: Speci men Type: BLOOD SPECIMEN Ordering Facility: [facility] Address: [address] [place] [address] Performed By: #### 5 7021-8 #### [facility] CLIA [id number] [address] [place] [address] [place] CRP SerPl-mCncon 07-25-2024 CRP [Mass/Vol] 1.2 mg/dL High <0.9 [facility] Comment on above: Order Comment: Speci men Type: BLOOD SPECIMEN Ordering Facility: [facility] Address: [address] [place] [address] Performed By: #### 1 988-5 #### [facility] CLIA [id number] [address] [place] [address] [place] Comprehensive metabolic 2000 panelon 07-25-2024 Albumin [Mass/Vol] 4.5 g/dL Normal 3.9-4.9 [facility] Comment on above: Order Comment: Speci men Type: BLOOD SPECIMEN Ordering Facility: [facility] Address: [address] [place], [place] [address] Performed By: #### 2 4323-8, 3084-1 #### [facility] CLIA [id number] [address] [place], [place] [address] [place] ALP [Catalytic activity/Vol] 94 U/L Normal 34-123 [facility] Comment on above: Order Comment: Speci men Type: BLOOD SPECIMEN Ordering Facility: [facility] Address: [address] [place] [address] Performed By: #### 2 4323-8, 308- #### [facility] CLIA [id number] [address] [place], [place] [address] [place] ALT [Catalytic activity/Vol] 20 U/L Normal 7-38 [facility] Comment on above: Order Comment: Speci men Type: BLOOD SPECIMEN Ordering Facility: [facility] Address: [address] [place], [place] [address] Performed By: #### 2 4323-8, 308-1 #### [facility] CLIA [id number] [address] [place] [address] [place] Anion gap [Moles/Vol] 12 mmol/L Normal 8-15 [facility] Comment on above: Order Comment: Speci men Type: BLOOD SPECIMEN Ordering Facility: [facility] Address: [address] [place], [place] [address] Performed By: #### 2 4323-8, 3084-1 #### [facility] CLIA [id number] [address] [place] [address] [place] AST [Catalytic activity/Vol] 23 U/L Normal 13-35 [facility] Comment on above: Order Comment: Speci men Type: BLOOD SPECIMEN Ordering Facility: [facility] Address: [address] [place] [address] Performed By: #### 2 4323-8, 3083- #### [facility] CLIA [id number] [address] [place] [address] [place] Bilirubin [Mass/Vol] 0.9 mg/dL Normal 0.2-1.3 [facility] Comment on above: Order Comment: Speci men Type: BLOOD SPECIMEN Ordering Facility: [facility] Address: [address] [place] [address] Performed By: #### 2 4323-8, 3083-04 #### [facility] CLIA [id number] [address] [place] [address] [place] Calcium [Mass/Vol] 9.7 mg/dL Normal 8.5-10.2 [facility] Comment on above: Order Comment: Speci men Type: BLOOD SPECIMEN Ordering Facility: [facility] Address: [address] [place] [address] Performed By: #### 2 4323-8, 3083-04 #### [facility] CLIA [id number] [address] [place] [address] [place] Chloride [Moles/Vol] 105 mmol/L Normal 98-107 [facility] Comment on above: Order Comment: Speci men Type: BLOOD SPECIMEN Ordering Facility: [facility] Address: [address] [place], [place] [address] Performed By: #### 2 4323-8, 3083-04 #### [facility] CLIA [id number] [address] [place], [place] [address] [place] CO2 [Moles/Vol] 21 mmol/L Low 22-30 [facility] Comment on above: Order Comment: Speci men Type: BLOOD SPECIMEN Ordering Facility: [facility] Address: [address] [place], [place] [address] Performed By: #### 2 4323-8, 3083-04 #### [facility] CLIA [id number] [address] [place], [place] [address] [place] Creatinine [Mass/Vol] 1.01 mg/dL High 0.58-0.96 [facility] Comment on above: Order Comment: Raghav men Type: BLOOD SPECIMEN Ordering Facility: [facility] Address: [address] [place] [address] Performed By: #### 2 4323-8, 3083-04 #### [facility] CLIA [id number] [address] [place] [address] [place] Creatinine and Glomerular filtration rate.predicted panel (S/P/Bld) 60 mL/min/1.73m??? Normal >=60 [facility] Comment on above: Order Comment: Raghav men Type: BLOOD SPECIMEN Ordering Facility: [facility] Address: [address] [place] [address] Result Comment: Verónica mated Glomerular Filtration Rate (eGFR) is calculated using the 2020 CKD-EPI creatinine equation. This equation utilizes serum creatinine, sex, and age as parameters. The creatinine assay has traceable calibration to isotope dilution-mass spectrometry. Refer to KDIGO guidelines for clinical interpretation. In patients with unstable renal function, e.g. those with acute kidney injury, the eGFR may not accurately reflect actual GFR. Performed By: #### 2 4323-8, 3083-04 #### [facility] CLIA [id number] [address] [place], [place] [address] [place] Glucose [Mass/Vol] 97 mg/dL Normal 74-99 [facility] Comment on above: Order Comment: Raghav mely Type: BLOOD SPECIMEN Ordering Facility: [facility] Address: [address] [place] [address] Result Comment: The [place] [employer] (ADA) provides guidance for cutoff values for fasting glucose and random glucose. The ADA defines fasting as no caloric intake for at least 8 hours. Fasting plasma glucose results between 100 to 125 mg/dL indicate increased risk for diabetes (prediabetes). Fasting plasma glucose results greater than or equal to 126 mg/dL meet the criteria for diagnosis of diabetes. In the absence of unequivocal hyperglycemia, results should be confirmed by repeat testing. In a patient with classic symptoms of hyperglycemia or hyperglycemic crisis, random plasma glucose results greater than or equal to 200 mg/dL meet the criteria for diagnosis of diabetes. Reference: Standards of Medical Care in Diabetes 2016, [place] [employer]. Diabetes Care. 2016.39(Suppl 1). Performed By: #### 2 4323-8, 3083-04 #### [facility] CLIA [id number] [address] [place] [address] [place] Potassium [Moles/Vol] 4.1 mmol/L Normal 3.7-5.1 [facility] Comment on above: Order Comment: Speci men Type: BLOOD SPECIMEN Ordering Facility: [facility] Address: [address] [place] [address] Performed By: #### 2 4328, 3083-04 #### [facility] CLIA [id number] [address] [place] [address] [place] Protein [Mass/Vol] 7.7 g/dL Normal 6.3-8.0 [facility] Comment on above: Order Comment: Speci men Type: BLOOD SPECIMEN Ordering Facility: [facility] Address: [address] [place] [address] Performed By: #### 2 4328, 3083-04 #### [facility] CLIA [id number] [address] [place] [address] [place] Sodium [Moles/Vol] 138 mmol/L Normal 136-144 [facility] Comment on above: Order Comment: Speci men Type: BLOOD SPECIMEN Ordering Facility: [facility] Address: [address] [place], [place] [address] Performed By: #### 2 4328, 3083-04 #### [facility] CLIA [id number] [address] [place] [address] [place] Urea nitrogen [Mass/Vol] 20 mg/dL Normal 7-21 [facility] Comment on above: Order Comment: Speci men Type: BLOOD SPECIMEN Ordering Facility: [facility] Address: [address] [place] [address] Performed By: #### 2 4323-8, 3084-1 #### [facility] CLIA [id number] [address] [place] [address] [place] ED NOTEon 07-25-2024 ED NOTE HNO ID: [id number] Author: DIVYA BECERRIL RN Service: Emergency Medicine Author Type: Registered Nurse Type: ED Notes Filed: 07/25/2024 22:05 Note Text: Patient stable at discharge Normal [facility] ED NOTE HNO ID: [id number] Author: JER PEDRO Medic Service: Emergency Medicine Author Type: Length Control Tester and Transit Planner Type: ED Notes Filed: 07/25/2024 21:07 Note Text: Supplies at bedside for MD request Normal [facility] ED PROV NOTEon 07-25-2024 ED PROV NOTE HNO ID: [id number] Author: ALEKS POLLARD MD Service: Emergency Medicine Author Type: Physician Type: ED Provider Notes Filed: 07/26/2024 16:41 Note Text: ED Provider Note Patient Name: Shiloh Brandon : 1955 SERVICE DATE: 07/25/24 History Patient presents with: Knee Pain: Pt presented to ED complaining of R knee pain pt has a known chip in the knee and is trying to be seen by ortho for possible scope and removal of bone? Pt here for worsening knee swelling and pain. 69 year old woman with pmh of asthma, cad, pvc on carvedilol and metoprolol, here with severe right knee pain inhibiting ambulation. Works on her feet daily. Underwent arthroscopic surgery on this knee around five years ago with improvement until about 2 months ago. Feels her knee lock and catch with severe pain at times. Has been using a knee brace to assist in ambulation and is noting decreased range of motion and swelling. PAST MEDICAL HISTORY Diagnosis Date Abnormal cardiovascular stress test 08/20/2011 Dyslipidemia Esophageal reflux Gastroesophageal reflux Hyperlipidemia 08/20/2011 PVC's (premature ventricular contractions) 08/20/2011 Unspecified asthma(493.90) Urinary calculus, unspecified Renal stones HX PAST SURGICAL HISTORY Procedure Laterality Date BIOPSY BREAST OPEN INCISIONAL Bx of breast, incisional NEGATIVE LIG/TRNSXJ FLP TUBE ABDL/VAG APPR UNI/BI Tubal ligation FAMILY HISTORY Problem Relation Age of Onset Cancer Father PROSTATE AT 77 other (TETANUS [Other]) Mother AT 54 Heart Mother valve heart disease Social History Tobacco Use Smoking status: Never Smokeless tobacco: Not on file Tobacco comments: SECOND HAND EXPOSURE Substance and Sexual Activity Alcohol use: No Drug use: No Sexual activity: Not on file ALLERGIES Allergen Reactions Amoxicillin Intolerance HEADACHE Aspirin Swelling Erythromycin GI Upset Review of Systems Physical Exam Vitals [07/25/24 1258] BP Pulse Temp Temp src Resp SpO2 Weight Height 160/72 70 36.3 ?C (97.4 ?F) Temporal 18 97 % -- -- Physical Exam Vitals and nursing note reviewed. Constitutional: General: She is not in acute distress. Appearance: She is well-developed. She is not ill-appearing, toxic-appearing or diaphoretic. HENT: Head: Normocephalic and atraumatic. Eyes: General: No scleral icterus. Right eye: No discharge. Left eye: No discharge. Conjunctiva/sclera: Conjunctivae normal. Pupils: Pupils are equal, round, and reactive to light. Neck: Thyroid: No thyromegaly. Vascular: No JVD. Trachea: No tracheal deviation. Cardiovascular: Rate and Rhythm: Normal rate and regular rhythm. Pulmonary: Effort: Pulmonary effort is normal. No respiratory distress. Abdominal: General: There is no distension. Tenderness: There is no guarding. Musculoskeletal: General: No swelling, tenderness or deformity. Cervical back: Normal range of motion and neck supple. Right knee: Swelling and effusion present. Decreased range of motion. Normal pulse. Left knee: Normal. Comments: Fullness in popliteal fossa. Restricted range of motion. Pain with passive range of motion Lymphadenopathy: Cervical: No cervical adenopathy. Skin: General: Skin is warm and dry. Findings: No rash. Neurological: General: No focal deficit present. Mental Status: She is alert and oriented to person, place, and time. Cranial Nerves: No cranial nerve deficit. Motor: No abnormal muscle tone. Coordination: Coordination normal. Psychiatric: Behavior: Behavior normal. Diagnostic Testing ED Labs Ordered and Reviewed - No data to display JOINT ASPIRATION Date/Time: 07/26/2024 4:39 PM Performed by: Aleks Pollard MD Authorized by: Aleks Pollard MD Informed Consent Consent Obtained: Verbal [place] Protocol A moment to CARE was completed. SIGN IN TIME OUT Location: Location: Knee Knee: R knee Anesthesia (see MAR for exact dosages): Anesthesia method: Local infiltration Local anesthetic: Lidocaine 1% WITH epi Procedure details: Preparation: Patient was prepped and draped in usual sterile fashion Needle gauge: 22 G Ultrasound guidance: no Approach: Lateral Aspirate amount: Zero Steroid injected: no Specimen collected: no Comments: Pt could not tolerate procedure despite infiltration with lidocaine. Agreed to discontinue and treat presumptively as gout given lab findings. ED Course / Clinical Impression Clinical Impressions as of 07/26/24 1639 Effusion of right knee Knee swelling MDM / Disposition / Plan Differential Diagnoses - osteoarthritis - dvt - septic arthritis - fracture SIGNATURE: Aleks Pollard MD - ALEKS POLLARD 07/26/24 1641 Normal [facility] ESR Westergren method (Bld) [Velocity]on 07-25-2024 ESR (Bld) [Velocity] 22 mm/h High 0-20 [facility] Comment on above: Order Comment: Speci men Type: BLOOD SPECIMEN Ordering Facility: [facility] Address: [address] [place] [address] Performed By: #### 4 537-7 #### [facility] CLIA [id number] [address] [place] [address] [place] [address] [place] US DVT LOWER RTon 07-25-2024 US DVT LOWER RT * * *Final Report* * * DATE OF EXAM: Jul 25 2024 7:54PM [facility] [place] - US DVT LOWER RT / PROCEDURE REASON: Leg deep vein thrombosis (DVT), new symptoms * * * * Physician Interpretation * * * * EXAMINATION: RIGHT LOWER EXTREMITY DEEP VENOUS ULTRASOUND WITH DOPPLER IMAGING CLINICAL HISTORY: Leg pain or tenderness. TECHNIQUE: Grayscale with compression maneuvers, color Doppler and spectral Doppler imaging of the right proximal deep veins was performed. Grayscale with compression maneuvers of the peroneal and posterior tibial veins was performed. The right great and small saphenous veins were evaluated at their insertion to the deep system. The contralateral common femoral vein was imaged for comparison. Images were obtained and stored in a permanent archive. MQ: [email or web address] COMPARISON: None RESULT: RIGHT LOWER EXTREMITY PROXIMAL DEEP VEINS Distal External Iliac, Common Femoral and proximal Profunda Veins: Compression: Normal Doppler: Normal, spontaneous respirophasic flow. Normal response to augmentation. Femoral vein: Compression: Normal Doppler: Normal, spontaneous flow. Normal response to augmentation. Popliteal vein: Compression: Normal Doppler: Normal, spontaneous flow. Normal response to augmentation. CALF DEEP VEINS Peroneal veins: Normal compression. Posterior tibial veins: Normal compression. Gastrocnemius and Soleal veins: Not imaged. SUPERFICIAL VEINS Great saphenous: Patent and compressible at insertion into common femoral vein; not otherwise assessed. Small Saphenous: Patent and compressible in the proximal calf, not otherwise assessed. LEFT LOWER EXTREMITY (FOR COMPARISON) Common Femoral Vein: Compression: Normal Doppler: Normal, spontaneous respirophasic flow. Normal response to augmentation. IMPRESSION: Negative study for proximal DVT in the right lower extremity. Negative study for calf DVT in the right lower extremity. Negative study for superficial thrombophlebitis in the imaged segments of the right lower extremity. Web Publisher: ADELA Transcribe Date/Time: Jul 25 2024 7:55P Dictated by : JAIR MCKEON MD This examination was interpreted and the report reviewed and electronically signed by: CHRIS WORTHINGTON MD on Jul 25 2024 8:01PM EST [id number] N Normal [facility] Urate SerPl-mCncon 5 Urate [Mass/Vol] 7.2 mg/dL High 2.5-6.6 Kenia figueroa [facility] Comment on above: Order Comment: Speci men Type: BLOOD SPECIMEN Ordering Facility: [facility] Address: [address] [place] [address] Performed By: #### 2 4323-8, 3084-1 #### [facility] CLIA [id number] [address] [place] [address] [place] XR KNEE 2V AP/LAT RTon 07-25 XR KNEE 2V AP/LAT RT * * *Final Report* * * DATE OF EXAM: Jul 25 2024 6:30PM EGX 5207 - XR KNEE 2V AP/LAT RT / PROCEDURE REASON: Osteoarthritis * * * * Physician Interpretation * * * * EXAMINATION / TECHNIQUE: XR KNEE 2V AP/LAT RT HISTORY: c/o right knee pain with limited motion Osteoarthritis Osteoarthritis COMPARISON: None RESULT: No acute fracture or dislocation. Medial compartment predominant osteoarthritis with a joint effusion. IMPRESSION: Medial compartment predominant osteoarthritis with a joint effusion. Web Publisher: PSC[employer] Transcribe Date/Time: Jul 25 2024 6:38P Dictated by : CARLA ARELLANO MD This examination was interpreted and the report reviewed and electronically signed by: CARLA ARELLANO MD on Jul 25 2024 6:38PM EST [id number] Normal [facility] Emergency Department Summary on 05-10-2024 Emergency Department Summary [facility] Medical Records Department [address] [place] [id number] Emergency Department Summary 05/10/24 MR#: [id number] Acct: [id number] Name: SHILOH BRANDON Rep #: [id number] : 1955 69 From: Kosta Bhat DO PCP: Dr. Merary Jacobsen MD Status:DEP ER Location: ED HPI History of Present Illness HPI Narrative: Patient presents with right knee pain began approximately 3 hours prior to arrival. Patient states it began rather suddenly. Patient states it has been waxing and waning. Patient describes it as burning. Patient states nothing makes it worse and nothing makes it better. Patient denies any trauma or injury. Patient denies any paresthesias or weakness. Patient states she has had a prior injury to her meniscus in her right knee. Chief Complaint: Lower Extremity Injury Informant: patient Onset/Context/Timing Onset: Hours (3) Context: Sudden Onset Timing: Waxes and wanes Quality of Pain: Burning Location: Right knee Worsened by: Nothing Relieved by: Nothing Associated Symptoms Associated Symptoms: Negative for Parasthesia, Weakness or Loss of Funtion PFSH PFS Medical History Non-ischemic cardiomyopathy Left ventricular diastolic dysfunction Near syncope Suspected COVID-19 virus infection (08/2019) Asthma Obesity Nonsustained paroxysmal ventricular tachycardia (04/28/20) Home Medications ???Medication ???Instructions ???Recorded ???Last Taken ???Type cholecalciferol (vitamin D3) 25 1,000 unit PO DAILY supplement 07/2511/28/21 History mcg (1,000 unit) tablet albuterol sulfate 2.5 mg/3 mL 2.5 mg inhalation Q4H PRN PRN 08/0607/04/20 History (0.083 %) solution for nebulization Wheezing albuterol sulfate 90 mcg/actuation 2 puff inhalation Q4H PRN PRN 11/27/21 History aerosol inhaler Wheezing ascorbate calcium (vitamin C) 500 500 mg PO QWEEK supplement 11/28/21 History mg tablet ranitidine HCl 150 mg tablet 150 mg PO DAILY PRN acid reflux Unknown History rosuvastatin 5 mg tablet 5 mg PO DAILY 10/01/22 Unknown His tory iron, carbonyl 45 mg tablet 45 mg PO QWEEK 05/15/23 Unknown Hi story vitamin B complex (B 1 tab PO QWEEK 05/15/23 Unknown Hi story Complex-Vitamin B12 tablet) lisinopril 10 mg tablet 10 mg PO DAILY #90 tabs 06/11/23 U nknown Rx carvedilol 12.5 mg tablet 12.5 mg PO BID #180 TABLETS Unknown Rx Allergy/AdvReac Type Severity Reaction Status Date / Time nettle Allergy Severe Anaphylaxis Verified 05/10/24 17:02 aspirin Allergy Swelling Verified 05/10/24 17:02 amoxicillin AdvReac Other Verified 05/10/24 17:02 erythromycin base AdvReac Nausea/Vom/ Verified 05/10/24 17:02 Diarrhea levofloxacin (From Levaquin) AdvReac Other Verified 05/10/24 17:02 sulfamethoxazole (From AdvReac Other Verified 05/10/24 17:02 Bactrim) trimethoprim (From Bactrim) AdvReac Other Verified 05/10/24 17:02 Family History Mother Heart disease ASD Uncle Heart disease valvular heart disease Surgical History History of left heart catheterization (07/04/20) H/O arthroscopic knee surgery History of repair of rotator cuff History of tubal ligation Social History Smoking Status: Never smoker alcohol intake: never substance use type: does not use caffeine: Yes (Occasion soda) ROS ROS ED Constitutional Constitutional ED: Denies chills or fever(s) Eyes Eyes: Denies blurry vision or change in vision ENT ENT ED: Denies rhinorrhea or sore throat Cardiovascular Cardiovascular: Denies chest pain or palpitations Respiratory/Chest Respiratory/Chest: Reports cough; Denies dyspnea Gastrointestinal Gastrointestinal: Denies nausea or vomiting Genitourinary Genitourinary ED: Denies dysuria or hematuria Musculoskeletal Musculoskeletal: Denies back pain or neck pain Integumentary Denies abscess or rash Neurologic Neurologic: Denies headache(s) or weakness Allergic/Immunologic Allergic/Immunologic ED: Denies mouth swelling or urticaria EXAM Physical Exam Const Vital Signs: 05/10/24 16:59 Temperature 96.2 F L Temperature Source Temporal Pulse Rate 73 Respiratory Rate 20 H Blood Pressure 143/72 H Blood Pressure Mean 95 Pulse Ox 97 Oxygen Delivery Method Room Air Positive well nourished and well developed General Appearance ED: well developed and NAD HEENT Reports moist mucous membranes Neck full ROM and supple Extremity Extremity Narrative: There is tenderness along the medial and lateral joint lines of the right knee. There is no bony (more content not included)... Normal [facility] Knee 4 or More Viewson 05-10 Knee 4 or More Views [facility] Imaging Services [address] [place] [address] Knee 4 or More Views MR#: [id number] Acct: [id number] Name: SHILOH BRANDON Rep #: [id number] : 1955 F 69 From: Kosta Payne MD PCP: Dr. Merary Jacobsen MD Status: REG ER Study: Knee 4 or More Views Date of Exam: 05/10/24 Exam# [id number] Ordering Dr: Kosta Bhat DO PROCEDURE: KNEE 4 OR MORE VIEWS REASON FOR EXAM: Pain. No known injury. TECHNIQUE: 4 view(s) of the right knee COMPARISON: No relevant prior. FINDINGS: No fractures are demonstrated. Mild medial marginal spurring. Marginal spurring of the patella. Ovoid calcific density, central aspect of the joint. No dislocation or subluxations. No effusion. Soft tissues are unremarkable. RAD/Knee 4 or More Views IMPRESSION: Ovoid synovial osteochondroma measuring approximately 0.9 cm in long axis. Mild degenerative osteoarthritis. No acute osseous abnormalities are demonstrated. Reading Location: [facility] CC: Dr. Merary Jacobsen MD; Dr. Kosta Bhat DO Web Publisher: Signed Normal [facility] Absolute lymphocyte countOrd ered By: Merary Jacobsen on 02-05-2023 Lymphocytes Auto (Unsp spec) [#/Vol] 1.22 10*3/uL 0.83-4.51 [facility] Basophil percentageOrdered B y: Merary Jacobsen on 02-05-2023 Basophils/100 WBC (Bld) 0.8 % 0-1 [facility] Eosinophils/100 WBC (Bld) 6.7 % 0-5 [facility] Neutrophils (Bld) [#/Vol] 5.7 10*3/uL 2.0-7.7 [facility] Neutrophils/100 WBC (Bld) 67.9 % 47-70 [facility] WBC (Bld) [#/Vol] 8.5 10*3/uL 4.4-11.0 [facility] Blood erythrocytes count (nu mber/volume)Ordered By: Merary Jacobsen on 02-05-2023 RBC (Bld) [#/Vol] 4.27 10*6/uL 4.2-5.4 [facility] Blood hemoglobin measurement (mass/volume)Ordered By: Merary Jacobsen on 02-05-2023 Hemoglobin (Bld) [Mass/Vol] 11.6 g/dL 12.0-15.0 [facility] Blood lymphocytes/100 leukoc ytesOrdered By: Merary Jacobsen on 02-05-2023 Lymphocytes/100 WBC (Bld) 14.4 % 19-41 [facility] Blood monocytes/100 leukocyt esOrdered By: Merary Jacobsen on 02-05-2023 Monocytes/100 WBC (Bld) 10.0 % 0-10 [facility] Blood platelet mean volumeOr dered By: Merary Jacobsen on 02-05-2023 Platelet mean volume (Bld) [Entitic vol] 9.1 fL 6.2-12.0 [facility] Determination of erythrocyte mean corpuscular volume (MCV)Ordered By: Merary Jacobsen on 02-05-2023 MCV (RBC) [Entitic vol] 85.9 fL 81-99 [facility] Hematocrit Auto (Bld) [Volum e fraction]Ordered By: Merary Jacobsen on 02-05-2023 Hematocrit (Bld) [Volume fraction] 36.7 % 37-47 [facility] Laboratory - Hematology and Cell countsOrdered By: Merary Jacobsen on 02-05-2023 Erythrocyte distribution width (RBC) [Entitic vol] 40.2 fL 35.1-43.9 [facility] Erythrocyte distribution width (RBC) [Ratio] 12.9 % 11.6-14.6 [facility] Immature granulocytes/100 WBC (Bld) 0.200 % 0.0-0.9 [facility] Comment on above: IG% - Immature Granu locytes (promyelocytes, myelocytes and metamyelocytes) > 1% indicates that a LEFT SHIFT is Present. MCH (RBC) [Entitic mass] 27.2 pg 27.0-32.0 [facility] Nucleated RBC/100 WBC (Bld) [Ratio] 0 % 0-5 [facility] MCHC Auto (RBC) [Mass/Vol]Or dered By: Merary Jacobsen on 02-05-2023 MCHC (RBC) [Mass/Vol] 31.6 g/dL 32-36 [facility] Platelets bldOrdered By: Merary Jacobsen on 02-05-2023 Platelets (Bld) [#/Vol] 247 10*3/uL 150-450 [facility] Absolute lymphocyte countOrd ered By: Dr. Jacobsen on 09-05-2022 Lymphocytes Auto (Unsp spec) [#/Vol] 1.37 10*3/uL 0.83-4.51 [facility] Basophil percentageOrdered B y: Dr. Jacobsen on 09-05-2022 Basophils/100 WBC (Bld) 0.6 % 0-1 [facility] Bilirubin [Mass/Vol] 0.50 mg/dL 0.20-1.[address] [facility] Comment on above: For patients on eltr ombopag therapy, use of Dimension [place] TBIL is not recommended. Chloride [Moles/Vol] 108 mmol/L 98-[address] [facility] Cholesterol [Mass/Vol] 219 mg/dL <200 [facility] Comment on above: <200 mg/dL Desirable 200-240 mg/dL Borderline >240 mg/dL High Risk Eosinophils/100 WBC (Bld) 7.5 % 0-5 [facility] Glucose [Mass/Vol] 104 mg/dL 74-106 [facility] Comment on above: Fasting Glucose resu lt from 100 to 125 mg/dL suggests IMPAIRED HOMEOSTASIS per A.D.A. criteria. Neutrophils (Bld) [#/Vol] 4.1 10*3/uL 2.0-7.7 [facility] Neutrophils/100 WBC (Bld) 62.7 % 47-70 [facility] Potassium [Moles/Vol] 4.4 mmol/L 3.5-5.1 [facility] Protein [Mass/Vol] 7.2 g/dL 6.4-8.2 [facility] Sodium [Moles/Vol] 140 mmol/L 136-145 [facility] Triglyceride [Mass/Vol] 156 mg/dL <199 [facility] Comment on above: The drugs N-Acetylcy steine and Metamizole may falsely depress this assay.Serum Triglycerides Reference Interval Normal <150 mg/dL Borderline high 150 - 199 mg/dL High 200 - 499 mg/dL Very High > or = 500 mg/dL WBC (Bld) [#/Vol] 6.5 10*3/uL 4.4-11.0 [facility] Blood erythrocytes count (nu mber/volume)Ordered By: Dr. Jacobsen on 09-05-2022 RBC (Bld) [#/Vol] 4.14 10*6/uL 4.2-5.4 [facility] Blood hemoglobin measurement (mass/volume)Ordered By: Dr. Jacobsen on 09-05-2022 Hemoglobin (Bld) [Mass/Vol] 11.2 g/dL 12.0-15.0 [facility] Blood lymphocytes/100 leukoc ytesOrdered By: Dr. Jacobsen on 09-05-2022 Lymphocytes/100 WBC (Bld) 20.9 % 19-41 [facility] Blood monocytes/100 leukocyt esOrdered By: Dr. Jacobsen on 09-05-2022 Monocytes/100 WBC (Bld) 7.8 % 0-10 [facility] Blood platelet mean volumeOr dered By: Dr. Jacobsen on 09-05-2022 Platelet mean volume (Bld) [Entitic vol] 8.8 fL 6.2-12.0 [facility] Determination of erythrocyte mean corpuscular volume (MCV)Ordered By: Dr. Jacobsen on 09-05-2022 MCV (RBC) [Entitic vol] 85.7 fL 81-99 [facility] Hematocrit Auto (Bld) [Volum e fraction]Ordered By: Dr. Jacobsen on 09-05-2022 Hematocrit (Bld) [Volume fraction] 35.5 % 37-47 [facility] Laboratory - Chemistry and C hemistry - challengeOrdered By: Dr. Jacobsen on 09-05-2022 ALP [Catalytic activity/Vol] 94 U/L 45-117 [facility] ALT [Catalytic activity/Vol] 18 U/L 13-56 [facility] CO2 [Moles/Vol] 27.0 mmol/L 21.0-32.0 [facility] Globulin (S) [Mass/Vol] 3.9 g/dL 2.2-4.2 [facility] Urea nitrogen/Creatinine [Mass ratio] 15.8 mg/mg 10-20 [facility] Laboratory - Hematology and Cell countsOrdered By: Dr. Jacobsen on 09-05-2022 Erythrocyte distribution width (RBC) [Entitic vol] 42.5 fL 35.1-43.9 [facility] Erythrocyte distribution width (RBC) [Ratio] 13.5 % 11.6-14.6 [facility] Immature granulocytes/100 WBC (Bld) 0.500 % 0.0-0.9 [facility] Comment on above: IG% - Immature Granu locytes (promyelocytes, myelocytes and metamyelocytes) > 1% indicates that a LEFT SHIFT is Present. MCH (RBC) [Entitic mass] 27.1 pg 27.0-32.0 [facility] Nucleated RBC/100 WBC (Bld) [Ratio] 0 % 0-5 [facility] MCHC Auto (RBC) [Mass/Vol]Or dered By: Dr. Jacobsen on 09-05-2022 MCHC (RBC) [Mass/Vol] 31.5 g/dL 32-36 [facility] No Panel InformationOrdered By: Dr. Jacobsen on 09-05-2022 Estimated GFR (MDRD) Amer 48 mL/min >60 [facility] Comment on above: GFR Calc Estimated GFR (MDRD) Non-Af Amer 40 mL/min >60 [facility] Comment on above: Non- GFR Calc Thyroid Stimulating Hormone (TSH) 3.08 uIU/mL 0.358-3.74 [facility] Platelets bldOrdered By: Dr. Jacobsen on 09-05-2022 Platelets (Bld) [#/Vol] 282 10*3/uL 150-450 [facility] Serum or plasma albumin antonio urement (mass/volume)Ordered By: Dr. Jacobsen on 09-05-2022 Albumin [Mass/Vol] 3.3 g/dL 3.2-5.0 [facility] Serum or plasma albumin/glob ulin mass ratioOrdered By: Dr. Jacobsen on 09-05-2022 Albumin/Globulin [Mass ratio] 0.8 {ratio} 0.9-2.4 [facility] Serum or plasma calcium antonio urement (mass/volume)Ordered By: Dr. Jacobsen on 09-05-2022 Calcium [Mass/Vol] 9.1 mg/dL 8.5-10.1 [facility] Serum or plasma cholesterol in HDL measurement (mass/volume)Ordered By: Dr. Jacobsen on 09-05-2022 Cholesterol in HDL [Mass/Vol] 43 mg/dL >40 [facility] Comment on above: The drugs N-Acetylcy steine and Metamizole may falsely depress this assay. Reference Range HDL <40 mg/dL Low HDL Cholesterol HDL >or= 60 mg/dL High HDL Cholesterol Serum or plasma cholesterol in VLDL measurement (mass/volume)Ordered By: Dr. Jacobsen on 09-05-2022 Cholesterol in VLDL [Mass/Vol] 31 mg/dL 5-40 [facility] Serum or plasma creatinine m easurement (mass/volume)Ordered By: Dr. Jacobsen on 09-05-2022 Creatinine [Mass/Vol] 1.39 mg/dL 0.55-1.02 [facility] Comment on above: The validity of the calculated GFR & GFRAA in patients over 70 years has not been determined. Clinical correlation is essential. Serum or plasma low density lipoprotein (LDL) cholesterol measurement (mass/volume)Ordered By: Dr. Jacobsen on 09-05-2022 Cholesterol in LDL [Mass/Vol] 145 mg/dL 0-130 [facility] Serum or plasma urea nitroge n measurement (mass/volume)Ordered By: Dr. Jacobsen on 09-05-2022 Urea nitrogen [Mass/Vol] 22 mg/dL 7-18 [facility] Thin prep Papanicolaou smear with manual screeningOrdered By: Dr. Jacobsen on 09-05-2022 Thin prep Papanicolaou smear with manual screening 17 U/L 15-37 [facility] Thin prep Papanicolaou smear with manual screening 5 5-15 [facility] Absolute lymphocyte countOrd ered By: Dr. Jacobsen on 05-07-2022 Lymphocytes Auto (Unsp spec) [#/Vol] 1.60 10*3/uL 0.83-4.51 [facility] Basophil percentageOrdered B y: Dr. Jacobsen on 05-07-2022 Basophils/100 WBC (Bld) 0.8 % 0-1 [facility] Chloride [Moles/Vol] 108 mmol/L 98-[address] [facility] Eosinophils/100 WBC (Bld) 8.4 % 0-5 [facility] Glucose [Mass/Vol] 82 mg/dL 74-106 [facility] Neutrophils (Bld) [#/Vol] 4.5 10*3/uL 2.0-7.7 [facility] Neutrophils/100 WBC (Bld) 60.7 % 47-70 [facility] Potassium [Moles/Vol] 4.2 mmol/L 3.5-5.1 [facility] Sodium [Moles/Vol] 142 mmol/L 136-145 [facility] WBC (Bld) [#/Vol] 7.5 10*3/uL 4.4-11.0 [facility] Blood erythrocytes count (nu mber/volume)Ordered By: Dr. Jacobsen on 05-07-2022 RBC (Bld) [#/Vol] 4.47 10*6/uL 4.2-5.4 [facility] Blood hemoglobin measurement (mass/volume)Ordered By: Dr. Jacobsen on 05-07-2022 Hemoglobin (Bld) [Mass/Vol] 11.5 g/dL 12.0-15.0 [facility] Blood lymphocytes/100 leukoc ytesOrdered By: Dr. Jacobsen on 05-07-2022 Lymphocytes/100 WBC (Bld) 21.4 % 19-41 [facility] Blood monocytes/100 leukocyt esOrdered By: Dr. Jacobsen on 05-07-2022 Monocytes/100 WBC (Bld) 8.4 % 0-10 [facility] Blood platelet mean volumeOr dered By: Dr. Jacobsen on 05-07-2022 Platelet mean volume (Bld) [Entitic vol] 9.1 fL 6.2-12.0 [facility] Determination of erythrocyte mean corpuscular volume (MCV)Ordered By: Dr. Jacobsen on 05-07-2022 MCV (RBC) [Entitic vol] 81.9 fL 81-99 [facility] Hematocrit Auto (Bld) [Volum e fraction]Ordered By: Dr. Jacobsen on 05-07-2022 Hematocrit (Bld) [Volume fraction] 36.6 % 37-47 [facility] Laboratory - Chemistry and C hemistry - challengeOrdered By: Dr. Jacobsen on 05-07-2022 CO2 [Moles/Vol] 27.0 mmol/L 21.0-32.0 [facility] Urea nitrogen/Creatinine [Mass ratio] 20.9 mg/mg 10-20 [facility] - Hematology and Cell countsOrdered By: Dr. Jacobsen on 05-07-2022 Erythrocyte distribution width (RBC) [Entitic vol] 48.6 fL 35.1-43.9 [facility] Erythrocyte distribution width (RBC) [Ratio] 16.3 % 11.6-14.6 [facility] Immature granulocytes/100 WBC (Bld) 0.300 % 0.0-0.9 [facility] Comment on above: IG% - Immature Granu locytes (promyelocytes, myelocytes and metamyelocytes) > 1% indicates that a LEFT SHIFT is Present. MCH (RBC) [Entitic mass] 25.7 pg 27.0-32.0 [facility] Nucleated RBC/100 WBC (Bld) [Ratio] 0 % 0-5 [facility] MCHC Auto (RBC) [Mass/Vol]Or dered By: Dr. Jacobsen on 05-07-2022 MCHC (RBC) [Mass/Vol] 31.4 g/dL 32-36 [facility] No Panel InformationOrdered By: Dr. Jacobsen on 05-07-2022 Estimated GFR (MDRD) Amer 60 mL/min >60 [facility] Comment on above: GFR Calc Estimated GFR (MDRD) Non-Af Amer 50 mL/min >60 [facility] Comment on above: Non- GFR Calc Platelets bldOrdered By: Dr. Jacobsen on 05-07-2022 Platelets (Bld) [#/Vol] 308 10*3/uL 150-450 [facility] Serum or plasma calcium antonio urement (mass/volume)Ordered By: Dr. Jacobsen on 05-07-2022 Calcium [Mass/Vol] 9.3 mg/dL 8.5-10.1 [facility] Serum or plasma creatinine m easurement (mass/volume)Ordered By: Dr. Jacobsen on 05-07-2022 Creatinine [Mass/Vol] 1.15 mg/dL 0.55-1.02 [facility] Comment on above: The validity of the calculated GFR & GFRAA in patients over 70 years has not been determined. Clinical correlation is essential. Serum or plasma urea nitroge n measurement (mass/volume)Ordered By: Dr. Jacobsen on 05-07-2022 Urea nitrogen [Mass/Vol] 24 mg/dL 7-18 [facility] Thin prep Papanicolaou smear with manual screeningOrdered By: Dr. Jacobsen on 05-07-2022 Thin prep Papanicolaou smear with manual screening 7 5-15 [facility] Absolute lymphocyte countOrd ered By: Marcio Ray on 02-15-2022 Lymphocytes Auto (Unsp spec) [#/Vol] 1.40 10*3/uL 0.83-4.51 [facility] Basophil percentageOrdered B y: Marcio Ray on 02-15-2022 Basophils/100 WBC (Bld) 0.5 % 0-1 [facility] Eosinophils/100 WBC (Bld) 5.0 % 0-5 [facility] Neutrophils (Bld) [#/Vol] 7.5 10*3/uL 2.0-7.7 [facility] Neutrophils/100 WBC (Bld) 72.7 % 47-70 [facility] WBC (Bld) [#/Vol] 10.3 10*3/uL 4.4-11.0 [facility] Blood erythrocytes count (nu mber/volume)Ordered By: Marcio Ray on 02-15-2022 RBC (Bld) [#/Vol] 4.00 10*6/uL 4.2-5.4 [facility] Blood hemoglobin measurement (mass/volume)Ordered By: Marcio Ray on 02-15-2022 Hemoglobin (Bld) [Mass/Vol] 10.3 g/dL 12.0-15.0 [facility] Blood lymphocytes/100 leukoc ytesOrdered By: Marcio Ray on 02-15-2022 Lymphocytes/100 WBC (Bld) 13.6 % 19-41 [facility] Blood monocytes/100 leukocyt esOrdered By: Marcio Ray on 02-15-2022 Monocytes/100 WBC (Bld) 7.9 % 0-10 [facility] Blood platelet mean volumeOr dered By: Marcio Ray on 02-15-2022 Platelet mean volume (Bld) [Entitic vol] 8.6 fL 6.2-12.0 [facility] Determination of erythrocyte mean corpuscular volume (MCV)Ordered By: Marcio Ray on 02-15-2022 MCV (RBC) [Entitic vol] 82.3 fL 81-99 [facility] Hematocrit Auto (Bld) [Volum e fraction]Ordered By: Marcio Ray on 02-15-2022 Hematocrit (Bld) [Volume fraction] 32.9 % 37-47 [facility] Laboratory - Hematology and Cell countsOrdered By: Marcio Ray on 02-15-2022 Erythrocyte distribution width (RBC) [Entitic vol] 42.0 fL 35.1-43.9 [facility] Erythrocyte distribution width (RBC) [Ratio] 14.0 % 11.6-14.6 [facility] Immature granulocytes/100 WBC (Bld) 0.300 % 0.0-0.9 [facility] Comment on above: IG% - Immature Granu locytes (promyelocytes, myelocytes and metamyelocytes) > 1% indicates that a LEFT SHIFT is Present. MCH (RBC) [Entitic mass] 25.8 pg 27.0-32.0 [facility] Nucleated RBC/100 WBC (Bld) [Ratio] 0 % 0-5 [facility] MCHC Auto (RBC) [Mass/Vol]Or dered By: Marcio Ray on 02-15-2022 MCHC (RBC) [Mass/Vol] 31.3 g/dL 32-36 [facility] No Panel InformationOrdered By: Marcio Ray on 02-15-2022 Endomysial IgA Antibody Negative Negative [facility] Immunoglobulin E 411 IU/mL 6-495 [facility] Platelets bldOrdered By: Niko Ray on 02-15-2022 Platelets (Bld) [#/Vol] 440 10*3/uL 150-450 [facility] Serum or plasma IgA measurem ent (mass/volume)Ordered By: Marcio Ray on 02-15-2022 IgA [Mass/Vol] 525 mg/dL 87-352 [facility] Serum or plasma IgG measurem ent (mass/volume)Ordered By: Marcio Ray on 02-15-2022 IgG [Mass/Vol] 1147 mg/dL 586-1602 [facility] Serum or plasma IgM measurem ent (mass/volume)Ordered By: Marcio Ray on 02-15-2022 IgM [Mass/Vol] 74 mg/dL 26-217 [facility] Comment on above: Performed at: - [address] [id number] Director: Marion Guidry MD, Phone: [phone] at: [facility] [id number] Director: Michael Boyer PhD, Phone: [phone] Serum tissue transglutaminas e IgA antibody assay (units/volume)Ordered By: Marcio Ray on 02-15-2022 tTG IgA Qn (S) <2 U/mL 0-3 [facility] Comment on above: Negative 0 - 3 Weak Positive 4 - 10 Positive >10 Tissue Transglutaminase (tTG) has been identified as the endomysial antigen. Studies have demonstr- ated that endomysial IgA antibodies have over 99% specificity for gluten sensitive enteropathy. Thin prep Papanicolaou smear with manual screeningOrdered By: Marcio Ray on 02-15-2022 Thin prep Papanicolaou smear with manual screening 304 U/L 84-246 [facility] Absolute lymphocyte countOrd ered By: Dr. Jacobsen on 02-05-2022 Lymphocytes Auto (Unsp spec) [#/Vol] 1.00 10*3/uL 0.83-4.51 [facility] Basophil percentageOrdered B y: Dr. Jacobsen on 02-05-2022 Basophils/100 WBC (Bld) 0.7 % 0-1 [facility] Chloride [Moles/Vol] 108 mmol/L 98-[address] [facility] Eosinophils/100 WBC (Bld) 4.6 % 0-5 [facility] Glucose [Mass/Vol] 119 mg/dL 74-106 [facility] Comment on above: Fasting Glucose resu lt from 100 to 125 mg/dL suggests IMPAIRED HOMEOSTASIS per A.D.A. criteria. Neutrophils (Bld) [#/Vol] 5.2 10*3/uL 2.0-7.7 [facility] Neutrophils/100 WBC (Bld) 72.3 % 47-70 [facility] Potassium [Moles/Vol] 3.9 mmol/L 3.5-5.1 [facility] Sodium [Moles/Vol] 141 mmol/L 136-145 [facility] WBC (Bld) [#/Vol] 7.2 10*3/uL 4.4-11.0 [facility] Blood erythrocytes count (nu mber/volume)Ordered By: Dr. Jacobsen on 02-05-2022 RBC (Bld) [#/Vol] 3.27 10*6/uL 4.2-5.4 [facility] Blood hemoglobin measurement (mass/volume)Ordered By: Dr. Jacobsen on 02-05-2022 Hemoglobin (Bld) [Mass/Vol] 8.6 g/dL 12.0-15.0 [facility] Blood lymphocytes/100 leukoc ytesOrdered By: Dr. Jcaobsen on 02-05-2022 Lymphocytes/100 WBC (Bld) 14.0 % 19-41 [facility] Blood monocytes/100 leukocyt esOrdered By: Dr. Jacobsen on 02-05-2022 Monocytes/100 WBC (Bld) 8.0 % 0-10 [facility] Blood platelet mean volumeOr dered By: Dr. Jacobsen on 02-05-2022 Platelet mean volume (Bld) [Entitic vol] 8.7 fL 6.2-12.0 [facility] Determination of erythrocyte mean corpuscular volume (MCV)Ordered By: Dr. Jacobsen on 02-05-2022 MCV (RBC) [Entitic vol] 85.6 fL 81-99 [facility] Hematocrit Auto (Bld) [Volum e fraction]Ordered By: Dr. Jacobsen on 02-05-2022 Hematocrit (Bld) [Volume fraction] 28.0 % 37-47 [facility] Laboratory - Chemistry and C hemistry - challengeOrdered By: Dr. Jacobsen on 02-05-2022 CO2 [Moles/Vol] 26.0 mmol/L 21.0-32.0 [facility] Urea nitrogen/Creatinine [Mass ratio] 17.8 mg/mg 10-20 [facility] - Hematology and Cell countsOrdered By: Dr. Jacobsen on 02-05-2022 Erythrocyte distribution width (RBC) [Entitic vol] 46.5 fL 35.1-43.9 [facility] Erythrocyte distribution width (RBC) [Ratio] 14.9 % 11.6-14.6 [facility] Immature granulocytes/100 WBC (Bld) 0.400 % 0.0-0.9 [facility] Comment on above: IG% - Immature Granu locytes (promyelocytes, myelocytes and metamyelocytes) > 1% indicates that a LEFT SHIFT is Present. MCH (RBC) [Entitic mass] 26.3 pg 27.0-32.0 [facility] Nucleated RBC/100 WBC (Bld) [Ratio] 0 % 0-5 [facility] MCHC Auto (RBC) [Mass/Vol]Or dered By: Dr. Jacobsen on 02-05-2022 MCHC (RBC) [Mass/Vol] 30.7 g/dL 32-36 [facility] No Panel InformationOrdered By: Dr. Jacobsen on 02-05-2022 Estimated GFR (MDRD) Amer 66 mL/min >60 [facility] Comment on above: GFR Calc Estimated GFR (MDRD) Non-Af Amer 54 mL/min >60 [facility] Comment on above: Non- GFR Calc Thyroid Stimulating Hormone (TSH) 1.83 uIU/mL 0.358-3.74 [facility] Platelets bldOrdered By: Dr. Jacobsen on 02-05-2022 Platelets (Bld) [#/Vol] 361 10*3/uL 150-450 [facility] Serum or plasma calcium antonio urement (mass/volume)Ordered By: Dr. Jacobsen on 02-05-2022 Calcium [Mass/Vol] 8.9 mg/dL 8.5-10.1 [facility] Serum or plasma creatinine m easurement (mass/volume)Ordered By: Dr. Jacobsen on 02-05-2022 Creatinine [Mass/Vol] 1.07 mg/dL 0.55-1.02 [facility] Comment on above: The validity of the calculated GFR & GFRAA in patients over 70 years has not been determined. Clinical correlation is essential. Serum or plasma urea nitroge n measurement (mass/volume)Ordered By: Dr. Jacobsen on 02-05-2022 Urea nitrogen [Mass/Vol] 19 mg/dL 7-18 [facility] Thin prep Papanicolaou smear with manual screeningOrdered By: Dr. Jacobsen on 02-05-2022 Thin prep Papanicolaou smear with manual screening 7 5-15 [facility] Absolute lymphocyte counton 12-27-2021 Lymphocytes Auto (Unsp spec) [#/Vol] 1.23 10*3/uL 0.83-4.51 [facility] Work Phone: Basophil percentageon 2021 Basophils/100 WBC (Bld) 0.5 % 0-1 [facility] Work Phone: Chloride [Moles/Vol] 107 mmol/L 98-[address] [facility] Work Phone: Eosinophils/100 WBC (Bld) 2.0 % 0-5 [facility] Work Phone: [phone] Glucose [Mass/Vol] 100 mg/dL 74-106 [facility] Work Phone: Comment on above: Fasting Glucose resu lt from 100 to 125 mg/dL suggests IMPAIRED HOMEOSTASIS per A.D.A. criteria. Neutrophils (Bld) [#/Vol] 6.5 10*3/uL 2.0-7.7 [facility] Work Phone: Neutrophils/100 WBC (Bld) 74.8 % 47-70 [facility] Work Phone: Potassium [Moles/Vol] 3.5 mmol/L 3.5-5.1 [facility] Work Phone: Sodium [Moles/Vol] 142 mmol/L 136-145 [facility] Work Phone: WBC (Bld) [#/Vol] 8.7 10*3/uL 4.4-11.0 [facility] Work Phone: [phone] Blood erythrocytes count (nu mber/volume)on 12-27-2021 RBC (Bld) [#/Vol] 3.17 10*6/uL 4.2-5.4 [facility]: Blood hemoglobin measurement (mass/volume)on 12-27-2021 Hemoglobin (Bld) [Mass/Vol] 8.3 g/dL 12.0-15.0 [facility] Work Phone: Blood lymphocytes/100 leukoc yteson 12-27-2021 Lymphocytes/100 WBC (Bld) 14.2 % 19-41 [facility] Work Phone: Blood monocytes/100 leukocyt eson 12-27-2021 Monocytes/100 WBC (Bld) 7.9 % 0-10 [facility] Work Phone: Blood platelet mean volumeon 12-27-2021 Platelet mean volume (Bld) [Entitic vol] 9.2 fL 6.2-12.0 [facility] Work Phone: Determination of erythrocyte mean corpuscular volume (MCV)on 12-27-2021 MCV (RBC) [Entitic vol] 87.1 fL 81-99 [facility] Work Phone: Hematocrit Auto (Bld) [Volum e fraction]on 12-27-2021 Hematocrit (Bld) [Volume fraction] 27.6 % 37-47 [facility] Work Phone: Hemoglobin in reticulocytes (mass per reticulocyte)on 12-27-2021 Hemoglobin (Reticulocytes) [Entitic mass] 32.1 pg 30-35 [facility] Work Phone: Laboratory - Chemistry and C hemistry - challengeon 12-27-2021 CO2 [Moles/Vol] 28.0 mmol/L 21.0-32.0 [facility] Work Phone: Urea nitrogen/Creatinine [Mass ratio] 15.0 mg/mg 10-20 [facility] Work Phone: Laboratory - Hematology and Cell countson 12-27-2021 Erythrocyte distribution width (RBC) [Entitic vol] 45.1 fL 35.1-43.9 [facility] Work Phone: Erythrocyte distribution width (RBC) [Ratio] 14.5 % 11.6-14.6 [facility] Work Phone: Immature granulocytes/100 WBC (Bld) 0.600 % 0.0-0.9 [facility] Work Phone: Comment on above: IG% - Immature Granu locytes (promyelocytes, myelocytes and metamyelocytes) > 1% indicates that a LEFT SHIFT is Present. MCH (RBC) [Entitic mass] 26.2 pg 27.0-32.0 [facility] Work Phone: Nucleated RBC/100 WBC (Bld) [Ratio] 0 % 0-5 [facility] Work Phone: MCHC Auto (RBC) [Mass/Vol]on 12-27-2021 MCHC (RBC) [Mass/Vol] 30.1 g/dL 32-36 [facility] Work Phone: No Panel Informationon 12-27 Estimated GFR (MDRD) Amer 62 mL/min >60 [facility] Work Phone: Comment on above: GFR Calc Estimated GFR (MDRD) Non-Af Amer 51 mL/min >60 [facility] Work Phone: Comment on above: Non- GFR Calc Immature Reticulocyte Fraction 23.40 % 3.00-15.90 [facility] Work Phone: Reticulocyte Count 2.47 % 0.5-1.5 [facility] Work Phone: Thyroid Stimulating Hormone (TSH) 1.47 uIU/mL 0.358-3.74 [facility] Work Phone: Platelets bldon 12-27-2021 Platelets (Bld) [#/Vol] 421 10*3/uL 150-450 [facility] Work Phone: Serum or plasma calcium antonio urement (mass/volume)on 09-21-2022 Calcium [Mass/Vol] 9.4 mg/dL 8.5-10.1 [facility] Work Phone: Serum or plasma creatinine m easurement (mass/volume)on 12-27-2021 Creatinine [Mass/Vol] 1.13 mg/dL 0.55-1.02 [facility] Work Phone: Comment on above: The validity of the calculated GFR & GFRAA in patients over 70 years has not been determined. Clinical correlation is essential. Serum or plasma urea nitroge n measurement (mass/volume)on 12-27-2021 Urea nitrogen [Mass/Vol] 17 mg/dL 7-18 [facility] Work Phone: Thin prep Papanicolaou smear with manual screeningon 12-27-2021 Thin prep Papanicolaou smear with manual screening 7 5-15 [facility] Work Phone: Absolute lymphocyte counton 12-18-2021 Lymphocytes Auto (Unsp spec) [#/Vol] 1.14 10*3/uL 0.83-4.51 [facility] Work Phone: Basophil percentageon 2021 Basophils/100 WBC (Bld) 0.3 % 0-1 [facility] Work Phone: Bilirubin [Mass/Vol] 1.10 mg/dL 0.20-1.[address] [facility] Work Phone: Comment on above: For patients on eltr ombopag therapy, use of Dimension Gunlock TBIL is not recommended. Chloride [Moles/Vol] 100 mmol/L 98-[address] [facility] Work Phone: Eosinophils/100 WBC (Bld) 0.1 % 0-5 [facility] Work Phone: Glucose [Mass/Vol] 122 mg/dL 74-106 [facility] Work Phone: Comment on above: Fasting Glucose resu lt from 100 to 125 mg/dL suggests IMPAIRED HOMEOSTASIS per A.D.A. criteria. Neutrophils (Bld) [#/Vol] 12.9 10*3/uL 2.0-7.7 [facility] Work Phone: Neutrophils/100 WBC (Bld) 83.0 % 47-70 [facility] Work Phone: Potassium [Moles/Vol] 3.9 mmol/L 3.5-5.1 [facility] Work [facility]: Protein [Mass/Vol] 7.6 g/dL 6.4-8.2 [facility]: Sodium [Moles/Vol] 134 mmol/L 136-145 [facility] Work Phone: WBC (Bld) [#/Vol] 15.6 10*3/uL 4.4-11.0 [facility]: Blood erythrocytes count (nu mber/volume)on 12-18-2021 RBC (Bld) [#/Vol] 3.25 10*6/uL 4.2-5.4 [facility] Work Phone: [phone] Blood hemoglobin measurement (mass/volume)on 12-18-2021 Hemoglobin (Bld) [Mass/Vol] 8.7 g/dL 12.0-15.0 [facility] Work Phone: Blood lymphocytes/100 leukoc yteson 12-18-2021 Lymphocytes/100 WBC (Bld) 7.3 % 19-41 [facility] Work Phone: Blood monocytes/100 leukocyt eson 12-18-2021 Monocytes/100 WBC (Bld) 8.5 % 0-10 [facility] Work Phone: Blood platelet mean volumeon 12-18-2021 Platelet mean volume (Bld) [Entitic vol] 9.5 fL 6.2-12.0 [facility] Work Phone: Determination of erythrocyte mean corpuscular volume (MCV)on 12-18-2021 MCV (RBC) [Entitic vol] 84.6 fL 81-99 [facility] Work Phone: Hematocrit Auto (Bld) [Volum e fraction]on 12-18-2021 Hematocrit (Bld) [Volume fraction] 27.5 % 37-47 [facility] Work Phone: Laboratory - Chemistry and C hemistry - challengeon 12-18-2021 ALP [Catalytic activity/Vol] 113 U/L 45-117 [facility] Work Phone: ALT [Catalytic activity/Vol] 19 U/L 13-56 [facility] Work Phone: CO2 [Moles/Vol] 25.0 mmol/L 21.0-32.0 [facility] Work Phone: Globulin (S) [Mass/Vol] 5.0 g/dL 2.2-4.2 [facility] Work Phone: Urea nitrogen/Creatinine [Mass ratio] 15.6 mg/mg 10-20 [facility] Work Phone: Laboratory - Hematology and Cell countson 12-18-2021 Erythrocyte distribution width (RBC) [Entitic vol] 42.3 fL 35.1-43.9 [facility] Work Phone: Erythrocyte distribution width (RBC) [Ratio] 13.5 % 11.6-14.6 [facility] Work Phone: Immature granulocytes/100 WBC (Bld) 0.800 % 0.0-0.9 [facility] Work Phone: Comment on above: IG% - Immature Granu locytes (promyelocytes, myelocytes and metamyelocytes) > 1% indicates that a LEFT SHIFT is Present. MCH (RBC) [Entitic mass] 26.8 pg 27.0-32.0 [facility] Work Phone: Nucleated RBC/100 WBC (Bld) [Ratio] 0 % 0-5 [facility] Work Phone: MCHC Auto (RBC) [Mass/Vol]on 12-18-2021 MCHC (RBC) [Mass/Vol] 31.6 g/dL 32-36 [facility] Work Phone: No Panel Informationon 12-18 Estimated GFR (MDRD) Amer 36 mL/min >60 [facility] Work Phone: Comment on above: GFR Calc Estimated GFR (MDRD) Non-Af Amer 30 mL/min >60 [facility] Work Phone: Comment on above: Non- GFR Calc Platelets bldon 12-18-2021 Platelets (Bld) [#/Vol] 352 10*3/uL 150-450 [facility] Work Phone: Serum or plasma albumin antonio urement (mass/volume)on 12-18-2021 Albumin [Mass/Vol] 2.6 g/dL 3.2-5.0 [facility] Work Phone: Serum or plasma albumin/glob ulin mass ratioon 12-18-2021 Albumin/Globulin [Mass ratio] 0.5 {ratio} 0.9-2.4 [facility] Work Phone: Serum or plasma calcium antonio urement (mass/volume)on 12-18-2021 Calcium [Mass/Vol] 9.4 mg/dL 8.5-10.1 [facility] Work Phone: Serum or plasma creatinine m easurement (mass/volume)on 12-18-2021 Creatinine [Mass/Vol] 1.80 mg/dL 0.55-1.02 [facility] Work Phone: Comment on above: The validity of the calculated GFR & GFRAA in patients over 70 years has not been determined. Clinical correlation is essential. Serum or plasma urea nitroge n measurement (mass/volume)on 12-18-2021 Urea nitrogen [Mass/Vol] 28 mg/dL 7-18 [facility] Work Phone: Thin prep Papanicolaou smear with manual screeningon 12-18-2021 Thin prep Papanicolaou smear with manual screening 19 U/L 15-37 [facility] Work Phone: [phone] Thin prep Papanicolaou smear with manual screening 9 5-15 [facility] Work [phone] Absolute lymphocyte counton 12-08-2021 Lymphocytes Auto (Unsp spec) [#/Vol] 2.54 10*3/uL 0.83-4.51 [facility] Work Phone: Basophil percentageon 2021 Basophils/100 WBC (Bld) 0.8 % 0-1 [facility] Work Phone: Eosinophils/100 WBC (Bld) 2.4 % 0-5 [facility] Work Phone: [phone] Neutrophils (Bld) [#/Vol] 7.1 10*3/uL 2.0-7.7 [facility] Work Phone: Neutrophils/100 WBC (Bld) 66.5 % 47-70 [facility] Work Phone: [phone] WBC (Bld) [#/Vol] 10.6 10*3/uL 4.4-11.0 [facility] Work Phone: [phone] Bilirubin [Mass/Vol] 0.60 mg/dL 0.20-1.[address] [facility] Work Phone: [phone] Comment on above: For patients on eltr ombopag therapy, use of Dimension Gunlock TBIL is not recommended. Chloride [Moles/Vol] 102 mmol/L 98-[address] [facility] Work Phone: Glucose [Mass/Vol] 109 mg/dL 74-106 [facility] Work Phone: [phone] Comment on above: Fasting Glucose resu lt from 100 to 125 mg/dL suggests IMPAIRED HOMEOSTASIS per A.D.A. criteria. Potassium [Moles/Vol] 3.7 mmol/L 3.5-5.1 [facility] Work Phone: [phone] Protein [Mass/Vol] 7.9 g/dL 6.4-8.2 [facility] Work Phone: Sodium [Moles/Vol] 137 mmol/L 136-145 [facility] Work Phone: Blood erythrocytes count (nu mber/volume)on 12-08-2021 RBC (Bld) [#/Vol] 4.34 10*6/uL 4.2-5.4 [facility]: Blood hemoglobin measurement (mass/volume)on 12-08-2021 Hemoglobin (Bld) [Mass/Vol] 13.6 g/dL 12.0-15.0 [facility] Work Phone: Blood lymphocytes/100 leukoc yteson 12-08-2021 Lymphocytes/100 WBC (Bld) 24.0 % 19-41 [facility] Work Phone: Blood monocytes/100 leukocyt eson 12-08-2021 Monocytes/100 WBC (Bld) 5.9 % 0-10 [facility] Work Phone: Blood platelet mean volumeon 12-08-2021 Platelet mean volume (Bld) [Entitic vol] 10.1 fL 6.2-12.0 [facility] Work Phone: Determination of erythrocyte mean corpuscular volume (MCV)on 12-08-2021 MCV (RBC) [Entitic vol] 95.2 fL 81-99 [facility] Work Phone: Comment on above: Delta: 84.7 on 12/08-1224 Hematocrit Auto (Bld) [Volum e fraction]on 12-08-2021 Hematocrit (Bld) [Volume fraction] 41.3 % 37-47 [facility] Work Phone: Laboratory - Chemistry and C hemistry - challengeon 12-08-2021 ALP [Catalytic activity/Vol] 118 U/L 45-117 [facility] Work Phone: ALT [Catalytic activity/Vol] 52 U/L 13-56 [facility] Work Phone: CO2 [Moles/Vol] 25.0 mmol/L 21.0-32.0 [facility] Work Phone: Globulin (S) [Mass/Vol] 5.3 g/dL 2.2-4.2 [facility] Work Phone: Urea nitrogen/Creatinine [Mass ratio] 14.4 mg/mg 10-20 [facility] Work Phone: Laboratory - Hematology and Cell countson 12-08-2021 Erythrocyte distribution width (RBC) [Entitic vol] 43.4 fL 35.1-43.9 [facility] Work Phone: Erythrocyte distribution width (RBC) [Ratio] 12.4 % 11.6-14.6 [facility] Work Phone: Immature granulocytes/100 WBC (Bld) 0.400 % 0.0-0.9 [facility] Work Phone: Comment on above: IG% - Immature Granu locytes (promyelocytes, myelocytes and metamyelocytes) > 1% indicates that a LEFT SHIFT is Present. MCH (RBC) [Entitic mass] 31.3 pg 27.0-32.0 [facility] Work Phone: Nucleated RBC/100 WBC (Bld) [Ratio] 0 % 0-5 [facility] Work Phone: MCHC Auto (RBC) [Mass/Vol]on 12-08-2021 MCHC (RBC) [Mass/Vol] 32.9 g/dL 32-36 [facility] Work Phone: No Panel Informationon 12-08 Thyroid Stimulating Hormone (TSH) 0.02 uIU/mL 0.358-3.74 [facility] Work Phone: Estimated GFR (MDRD) Amer 32 mL/min >60 [facility] Work Phone: Comment on above: GFR Calc Estimated GFR (MDRD) Non-Af Amer 26 mL/min >60 [facility] Work Phone: Comment on above: Non- GFR Calc Platelets bldon 12-08-2021 Platelets (Bld) [#/Vol] 288 10*3/uL 150-450 [facility] Work Phone: Serum or plasma albumin antonio urement (mass/volume)on 12-08-2021 Albumin [Mass/Vol] 2.6 g/dL 3.2-5.0 [facility] Work Phone: Serum or plasma albumin/glob ulin mass ratioon 12-08-2021 Albumin/Globulin [Mass ratio] 0.5 {ratio} 0.9-2.4 [facility] Work Phone: Serum or plasma calcium antonio urement (mass/volume)on 12-08-2021 Calcium [Mass/Vol] 8.7 mg/dL 8.5-10.1 [facility] Work Phone: Serum or plasma creatinine m easurement (mass/volume)on 12-08-2021 Creatinine [Mass/Vol] 2.01 mg/dL 0.55-1.02 [facility] Work Phone: Comment on above: The validity of the calculated GFR & GFRAA in patients over 70 years has not been determined. Clinical correlation is essential. Serum or plasma urea nitroge n measurement (mass/volume)on 12-08-2021 Urea nitrogen [Mass/Vol] 29 mg/dL 7-18 [facility] Work Phone: Thin prep Papanicolaou smear with manual screeningon 12-08-2021 Thin prep Papanicolaou smear with manual screening 71 U/L 15-37 [facility] Work Phone: Thin prep Papanicolaou smear with manual screening 10 5-15 [facility] Work Phone: Absolute lymphocyte counton 12-01-2021 Lymphocytes Auto (Unsp spec) [#/Vol] 1.28 10*3/uL 0.83-4.51 [facility] Work Phone: Basophil percentageon 2021 Basophils/100 WBC (Bld) 0.6 % 0-1 [facility] Work Phone: Chloride [Moles/Vol] 118 mmol/L 98-[address] [facility] Work Phone: Eosinophils/100 WBC (Bld) 1.2 % 0-5 [facility] Work Phone: Glucose [Mass/Vol] 100 mg/dL 74-106 [facility] Work Phone: Comment on above: Fasting Glucose resu lt from 100 to 125 mg/dL suggests IMPAIRED HOMEOSTASIS per A.D.A. criteria. Neutrophils (Bld) [#/Vol] 3.4 10*3/uL 2.0-7.7 [facility] Work Phone: Neutrophils/100 WBC (Bld) 65.8 % 47-70 [facility] Work Phone: Potassium [Moles/Vol] 4.1 mmol/L 3.5-5.1 [facility] Work Phone: Sodium [Moles/Vol] 144 mmol/L 136-145 [facility] Work Phone: [phone] WBC (Bld) [#/Vol] 5.2 10*3/uL 4.4-11.0 [facility] Work Phone: Blood erythrocytes count (nu mber/volume)on 12-01-2021 RBC (Bld) [#/Vol] 2.92 10*6/uL 4.2-5.4 [facility]: Blood hemoglobin measurement (mass/volume)on 12-01-2021 Hemoglobin (Bld) [Mass/Vol] 8.1 g/dL 12.0-15.0 [facility] Work Phone: [phone] Blood lymphocytes/100 leukoc yteson 12-01-2021 Lymphocytes/100 WBC (Bld) 24.8 % 19-41 [facility] Work Phone: Blood monocytes/100 leukocyt eson 12-01-2021 Monocytes/100 WBC (Bld) 7.0 % 0-10 [facility] Work Phone: Blood platelet mean volumeon 12-01-2021 Platelet mean volume (Bld) [Entitic vol] 9.2 fL 6.2-12.0 [facility] Work Phone: Determination of erythrocyte mean corpuscular volume (MCV)on 12-01-2021 MCV (RBC) [Entitic vol] 88.4 fL 81-99 [facility] Work Phone: Hematocrit Auto (Bld) [Volum e fraction]on 12-01-2021 Hematocrit (Bld) [Volume fraction] 25.8 % 37-47 [facility] Work Phone: INR in Blood by Coagulation assayon 12-01-2021 INR Coag (Bld) [Relative time] 1.3 {INR} [facility] Work Phone: Iron measurement (mass/mass) on 12-01-2021 Iron (Unsp spec) [Mass/Mass] 60 ug/dL 50-170 [facility] Work Phone: Laboratory - Chemistry and C hemistry - challengeon 12-01-2021 CO2 [Moles/Vol] 23.0 mmol/L 21.0-32.0 [facility] Work Phone: Urea nitrogen/Creatinine [Mass ratio] 24.2 mg/mg 10-20 [facility] Work Phone: Laboratory - Coagulationon 0 12-01-2021 aPTT Coag (Bld) [Time] 30.9 s 24.1-36.2 antoinette [facility] Work Phone: PT Coag (PPP) [Time] 15.5 s 11.7-14.9 os [facility] Work Phone: Laboratory - Hematology and Cell countson 12-01-2021 Erythrocyte distribution width (RBC) [Entitic vol] 44.2 fL 35.1-43.9 [facility] Work Phone: Erythrocyte distribution width (RBC) [Ratio] 13.6 % 11.6-14.6 [facility] Work Phone: Immature granulocytes/100 WBC (Bld) 0.600 % 0.0-0.9 [facility] Work Phone: Comment on above: IG% - Immature Granu locytes (promyelocytes, myelocytes and metamyelocytes) > 1% indicates that a LEFT SHIFT is Present. MCH (RBC) [Entitic mass] 27.7 pg 27.0-32.0 [facility] Work Phone: Nucleated RBC/100 WBC (Bld) [Ratio] 0 % 0-5 [facility] Work Phone: MCHC Auto (RBC) [Mass/Vol]on 12-01-2021 MCHC (RBC) [Mass/Vol] 31.4 g/dL 32-36 [facility] Work Phone: Comment on above: Delta: 33.2 on 11/30 No Panel Informationon 12-01 Estimated Creatinine Clearance Calc 33.22 ml/min [facility] Work Phone: Estimated GFR (MDRD) Amer 55 mL/min >60 [facility] Work Phone: Comment on above: GFR Calc Estimated GFR (MDRD) Non-Af Amer 46 mL/min >60 [facility] Work Phone: Comment on above: Non- GFR Calc Total Iron Binding Capacity 156 ug/dL 250-450 [facility] Work Phone: Platelets bldon 12-01-2021 Platelets (Bld) [#/Vol] 240 10*3/uL 150-450 [facility] Work Phone: Serum or plasma calcium antonio urement (mass/volume)on 12-01-2021 Calcium [Mass/Vol] 8.5 mg/dL 8.5-10.1 [facility] Work Phone: Serum or plasma creatinine m easurement (mass/volume)on 12-01-2021 Creatinine [Mass/Vol] 1.24 mg/dL 0.55-1.02 [facility] Work Phone: Comment on above: The validity of the calculated GFR & GFRAA in patients over 70 years has not been determined. Clinical correlation is essential. Serum or plasma iron saturat ion measurement (mass fraction)on 12-01-2021 Iron saturation [Mass fraction] 38.5 % 15.0-55.0 [facility] Work Phone: Serum or plasma urea nitroge n measurement (mass/volume)on 12-01-2021 Urea nitrogen [Mass/Vol] 30 mg/dL 7-18 [facility] Work Phone: Thin prep Papanicolaou smear with manual screeningon 12-01-2021 Thin prep Papanicolaou smear with manual screening 3 5-15 [facility] Work Phone: Basophil percentageon 2021 Bilirubin [Mass/Vol] 0.30 mg/dL 0.20-1.[address] [facility] Work Phone: Comment on above: For patients on eltr ombopag therapy, use of Dimension Gunlock TBIL is not recommended. Cholesterol [Mass/Vol] 141 mg/dL <200 [facility] Work Phone: Comment on above: <200 mg/dL Desirable 200-240 mg/dL Borderline >240 mg/dL High Risk Protein [Mass/Vol] 6.2 g/dL 6.4-8.2 [facility] Work Phone: Triglyceride [Mass/Vol] 243 mg/dL <199 [facility] Work Phone: Comment on above: The drugs N-Acetylcy steine and Metamizole may falsely depress this assay.Serum Triglycerides Reference Interval Normal <150 mg/dL Borderline high 150 - 199 mg/dL High 200 - 499 mg/dL Very High > or = 500 mg/dL Giardia lamblia ag stool EIA on 11-30-2021 G. lamblia Ag IA Ql (Stl) Negative Negative [facility] Work Phone: Comment on above: Performed at: [address] [id number] Director: Michael Boyer PhD, Phone: [phone] Laboratory - Chemistry and C hemistry - challengeon 11-30-2021 ALP [Catalytic activity/Vol] 88 U/L 45-117 [facility] Work Phone: ALT [Catalytic activity/Vol] 15 U/L 13-56 [facility] Work Phone: Globulin (S) [Mass/Vol] 4.2 g/dL 2.2-4.2 [facility] Work Phone: Lipase [Catalytic activity/Vol] 731 U/L 73-393 [facility] Work Phone: Serum or plasma albumin antonio urement (mass/volume)on 11-30-2021 Albumin [Mass/Vol] 2.0 g/dL 3.2-5.0 [facility] Work Phone: Serum or plasma albumin/glob ulin mass ratioon 11-30-2021 Albumin/Globulin [Mass ratio] 0.5 {ratio} 0.9-2.4 [facility] Work Phone: Serum or plasma cholesterol in HDL measurement (mass/volume)on 11-30-2021 Cholesterol in HDL [Mass/Vol] 13 mg/dL >40 [facility] Work Phone: Comment on above: The drugs N-Acetylcy steine and Metamizole may falsely depress this assay. Reference Range HDL <40 mg/dL Low HDL Cholesterol HDL >or= 60 mg/dL High HDL Cholesterol Serum or plasma cholesterol in VLDL measurement (mass/volume)on 11-30-2021 Cholesterol in VLDL [Mass/Vol] 49 mg/dL 5-40 [facility] Work Phone: Serum or plasma low density lipoprotein (LDL) cholesterol measurement (mass/volume)on 11-30-2021 Cholesterol in LDL [Mass/Vol] 79 mg/dL 0-130 [facility] Work Phone: Thin prep Papanicolaou smear with manual screeningon 11-30-2021 Thin prep Papanicolaou smear with manual screening 17 U/L 15-37 [facility] Work Phone: Comment on above: Slight Hemolysis, Re sult may be falsely increased. Absolute lymphocyte counton 11-29-2021 Lymphocytes Auto (Unsp spec) [#/Vol] 0.84 10*3/uL 0.83-4.51 [facility] Work Phone: Basophil percentageon 2021 Basophils/100 WBC (Bld) 0.4 % 0-1 [facility] Work Phone: Bilirubin [Mass/Vol] 0.50 mg/dL 0.20-1.[address] [facility] Work Phone: Comment on above: For patients on eltr ombopag therapy, use of Dimension [place] TBIL is not recommended. Chloride [Moles/Vol] 102 mmol/L 98-[address] [facility] Work Phone: Eosinophils/100 WBC (Bld) 0.5 % 0-5 [facility] Work Phone: Glucose [Mass/Vol] 143 mg/dL 74-106 [facility] Work Phone: Comment on above: Fasting Glucose resu lt greater than or equal to 126 mg/dL suggests DIABETES MELLITUS per A.D.A. criteria. Neutrophils (Bld) [#/Vol] 5.8 10*3/uL 2.0-7.7 [facility] Work Phone: Neutrophils/100 WBC (Bld) 78.9 % 47-70 [facility] Work Phone: Potassium [Moles/Vol] 3.3 mmol/L 3.5-5.1 [facility] Work Phone: Protein [Mass/Vol] 7.5 g/dL 6.4-8.2 [facility] Work Phone: Sodium [Moles/Vol] 136 mmol/L 136-145 [facility] Work Phone: WBC (Bld) [#/Vol] 7.3 10*3/uL 4.4-11.0 [facility] Work Phone: Blood erythrocytes count (nu mber/volume)on 11-29-2021 RBC (Bld) [#/Vol] 3.48 10*6/uL 4.2-5.4 [facility] Work [facility]: Blood hemoglobin measurement (mass/volume)on 11-29-2021 Hemoglobin (Bld) [Mass/Vol] 9.8 g/dL 12.0-15.0 [facility] Work Phone: Blood lymphocytes/100 leukoc yteson 11-29-2021 Lymphocytes/100 WBC (Bld) 11.5 % 19-41 [facility] Work Phone: Blood monocytes/100 leukocyt eson 11-29-2021 Monocytes/100 WBC (Bld) 8.2 % 0-10 [facility] Work Phone: Blood platelet mean volumeon 11-29-2021 Platelet mean volume (Bld) [Entitic vol] 9.3 fL 6.2-12.0 [facility] Work Phone: Determination of erythrocyte mean corpuscular volume (MCV)on 11-29-2021 MCV (RBC) [Entitic vol] 83.3 fL 81-99 [facility] Work Phone: Hematocrit Auto (Bld) [Volum e fraction]on 11-29-2021 Hematocrit (Bld) [Volume fraction] 29.0 % 37-47 [facility] Work Phone: Laboratory - Chemistry and C hemistry - challengeon 11-29-2021 ALP [Catalytic activity/Vol] 105 U/L 45-117 [facility] Work Phone: ALT [Catalytic activity/Vol] 18 U/L 13-56 [facility] Work Phone: CO2 [Moles/Vol] 27.0 mmol/L 21.0-32.0 [facility] Work Phone: Globulin (S) [Mass/Vol] 5.0 g/dL 2.2-4.2 [facility] Work Phone: Lipase [Catalytic activity/Vol] 729 U/L 73-393 [facility] Work Phone: Magnesium [Mass/Vol] 2.2 mg/dL 1.6-2.[address] [facility] Work Phone: Urea nitrogen/Creatinine [Mass ratio] 18.8 mg/mg 10-20 [facility] Work Phone: Laboratory - Hematology and Cell countson 11-29-2021 Erythrocyte distribution width (RBC) [Entitic vol] 39.7 fL 35.1-43.9 [facility] Work Phone: Erythrocyte distribution width (RBC) [Ratio] 13.1 % 11.6-14.6 [facility] Work Phone: Immature granulocytes/100 WBC (Bld) 0.500 % 0.0-0.9 [facility] Work Phone: Comment on above: IG% - Immature Granu locytes (promyelocytes, myelocytes and metamyelocytes) > 1% indicates that a LEFT SHIFT is Present. MCH (RBC) [Entitic mass] 28.2 pg 27.0-32.0 [facility] Work Phone: Nucleated RBC/100 WBC (Bld) [Ratio] 0 % 0-5 [facility] Work Phone: MCHC Auto (RBC) [Mass/Vol]on 11-29-2021 MCHC (RBC) [Mass/Vol] 33.8 g/dL 32-36 [facility] Work Phone: No Panel Informationon 11-29 Estimated Creatinine Clearance Calc 12.08 ml/min [facility] Work Phone: Estimated GFR (MDRD) Amer 17 mL/min >60 [facility] Work Phone: Comment on above: GFR Calc Estimated GFR (MDRD) Non-Af Amer 14 mL/min >60 [facility] Work Phone: Comment on above: Non- GFR Calc Platelets bldon 11-29-2021 Platelets (Bld) [#/Vol] 298 10*3/uL 150-450 [facility] Work Phone: Serum or plasma albumin antonio urement (mass/volume)on 11-29-2021 Albumin [Mass/Vol] 2.5 g/dL 3.2-5.0 [facility] Work Phone: Serum or plasma albumin/glob ulin mass ratioon 11-29-2021 Albumin/Globulin [Mass ratio] 0.5 {ratio} 0.9-2.4 [facility] Work Phone: Serum or plasma calcium antonio urement (mass/volume)on 11-29-2021 Calcium [Mass/Vol] 9.2 mg/dL 8.5-10.1 [facility] Work Phone: Serum or plasma creatinine m easurement (mass/volume)on 11-29-2021 Creatinine [Mass/Vol] 3.41 mg/dL 0.55-1.02 [facility] Work Phone: Comment on above: The validity of the calculated GFR & GFRAA in patients over 70 years has not been determined. Clinical correlation is essential. Serum or plasma urea nitroge n measurement (mass/volume)on 11-29-2021 Urea nitrogen [Mass/Vol] 64 mg/dL 7-18 [facility] Work Phone: Thin prep Papanicolaou smear with manual screeningon 11-29-2021 Thin prep Papanicolaou smear with manual screening 19 U/L 15-37 [facility] Work Phone: Thin prep Papanicolaou smear with manual screening 7 5-15 [facility] Work Phone: Absolute lymphocyte counton 11-15-2021 Lymphocytes Auto (Unsp spec) [#/Vol] 1.23 10*3/uL 0.83-4.51 [facility] Work Phone: Basophil percentageon 2021 Basophils/100 WBC (Bld) 0.4 % 0-1 [facility] Work Phone: Eosinophils/100 WBC (Bld) 1.8 % 0-5 [facility] Work Phone: [phone] Neutrophils (Bld) [#/Vol] 4.9 10*3/uL 2.0-7.7 [facility] Work Phone: Neutrophils/100 WBC (Bld) 68.9 % 47-70 [facility] Work Phone: WBC (Bld) [#/Vol] 7.1 10*3/uL 4.4-11.0 [facility]: Blood erythrocytes count (nu mber/volume)on 11-15-2021 RBC (Bld) [#/Vol] 4.00 10*6/uL 4.2-5.4 [facility] Blood hemoglobin measurement (mass/volume)on 11-15-2021 Hemoglobin (Bld) [Mass/Vol] 11.2 g/dL 12.0-15.0 [facility] Work Phone: Blood lymphocytes/100 leukoc yteson 11-15-2021 Lymphocytes/100 WBC (Bld) 17.3 % 19-41 [facility] Work Phone: [phone] Blood monocytes/100 leukocyt eson 11-15-2021 Monocytes/100 WBC (Bld) 11.0 % 0-10 [facility] Work Phone: Blood platelet mean volumeon 11-15-2021 Platelet mean volume (Bld) [Entitic vol] 9.4 fL 6.2-12.0 [facility] Work Phone: Determination of erythrocyte mean corpuscular volume (MCV)on 11-15-2021 MCV (RBC) [Entitic vol] 83.5 fL 81-99 [facility] Work Phone: Hematocrit Auto (Bld) [Volum e fraction]on 11-15-2021 Hematocrit (Bld) [Volume fraction] 33.4 % 37-47 [facility] Work Phone: Laboratory - Hematology and Cell countson 11-15-2021 Erythrocyte distribution width (RBC) [Entitic vol] 39.4 fL 35.1-43.9 [facility] Work Phone: Erythrocyte distribution width (RBC) [Ratio] 13.0 % 11.6-14.6 [facility] Work Phone: Immature granulocytes/100 WBC (Bld) 0.600 % 0.0-0.9 [facility] Work Phone: Comment on above: IG% - Immature Granu locytes (promyelocytes, myelocytes and metamyelocytes) > 1% indicates that a LEFT SHIFT is Present. MCH (RBC) [Entitic mass] 28.0 pg 27.0-32.0 [facility] Work Phone: Nucleated RBC/100 WBC (Bld) [Ratio] 0 % 0-5 [facility] Work Phone: MCHC Auto (RBC) [Mass/Vol]on 11-15-2021 MCHC (RBC) [Mass/Vol] 33.5 g/dL 32-36 [facility] Work Phone: Platelets bldon 11-15-2021 Platelets (Bld) [#/Vol] 349 10*3/uL 150-450 [facility] Work Phone: No Panel Information Enteric Bacteriology [facility] Work Phone: Vital Signs Date Time Vital Sign Value Performing Clinician Faci lity 05-15-2023 11:37-0500 Body height 157.[address] Merary Jacobsen Work Phone: [facility] 05-15-2023 11:35-0500 Body mass index (BMI) [Ratio] 31.8 kg/m2 Dr. Merary Jacobsen Work Phone: [facility] 05-15-2023 11:35-0500 Body weight 78.[address] Merary Jacobsen Work Phone: [facility] 05-15-2023 11:35-0500 Diastolic blood pressure 73 mm[Hg] Dr. Merary Jacobsen Work Phone: [facility] 05-15-2023 11:35-0500 Heart rate 74 /min Dr. Merary Jacobsen Work Phone: [facility] 05-15-2023 11:35-0500 Respiratory rate 18 /min Dr. Merary Jacobsen Work Phone: [facility] 05-15-2023 11:35-0500 SaO2% (BldA) [Mass fraction] 96 % Dr. Merary Jacobsen Work Phone: [facility] 05-15-2023 11:35-0500 Systolic blood pressure 128 mm[Hg] Dr. Merary Jacobsen Work Phone: [facility] 10-01-2022 12:53-0400 Body height 157.[address] Merary Jacobsen Work Phone: [facility] 10-01-2022 12:53-0400 Body mass index (BMI) [Ratio] 32.1 kg/m2 Dr. Merary Jacobsen Work Phone: [facility] 10-01-2022 12:53-0400 Body weight 79.[address] Merary Jacobsen Work Phone: [facility] 10-01-2022 12:53-0400 Diastolic blood pressure 61 mm[Hg] Dr. Merary Jacobsen Work Phone: [facility] 10-01-2022 12:53-0400 Heart rate 73 /min Dr. Merary Jacobsen Work Phone: [facility] 06-26-2023 12:53-0400 Respiratory rate 18 /min Dr. Merary Jacobsen Work Phone: [facility] 10-01-2022 12:53-0400 SaO2% (BldA) [Mass fraction] 95 % Dr. Merary Jacobsen Work Phone: [facility] 10-01-2022 12:53-0400 Systolic blood pressure 114 mm[Hg] Dr. Merary Jacobsen Work Phone: [facility] 04-05-2022 08:37-0500 Body height 157.[address] Merary Jacobsen Work Phone: [facility] 04-05-2022 08:37-0500 Body mass index (BMI) [Ratio] 29.4 kg/m2 Dr. Merary Jacobsen Work Phone: [facility] 04-05-2022 08:37-0500 Body weight 73.[address] Merary Jacobsen Work Phone: [facility] 04-05-2022 08:37-0500 Diastolic blood pressure 74 mm[Hg] Dr. Merary Jacobsen Work Phone: [facility] 04-05-2022 08:37-0500 Heart rate 67 /min Dr. Merary Jacobsen Work Phone: [facility] 04-05-2022 08:37-0500 Respiratory rate 18 /min Dr. Merary Jacobsen Work Phone: [facility] 04-05-2022 08:37-0500 SaO2% (BldA) [Mass fraction] 97 % Dr. Merary Jacobsen Work Phone: [facility] 04-05-2022 08:37-0500 Systolic blood pressure 120 mm[Hg] Dr. Merary Jacobsen Work Phone: [facility] 12-27-2021 09:24-0400 Body height 157.[address] Merary Jacobsen Work Phone: [facility] Work Phone: 12-27-2021 09:24-0400 Body mass index (BMI) [Ratio] 29.4 kg/m2 Dr. Merary Jacobsen Work Phone: [facility] Work Phone: 12-27-2021 09:24-0400 Body weight 73.[address] Merary Jacobsen Work Phone: [facility] Work Phone: 12-27-2021 09:24-0400 Diastolic blood pressure 63 mm[Hg] Dr. Merary Jacobsen Work Phone: [facility] Work Phone: 12-27-2021 09:24-0400 Heart rate 108 /min Dr. Merary Jacobsen Work Phone: [facility] Work Phone: 12-27-2021 09:24-0400 Respiratory rate 16 /min Dr. Merary Jacobsen Work Phone: [facility] Work Phone: 12-27-2021 09:24-0400 Systolic blood pressure 116 mm[Hg] Dr. Merary Jacobsen Work Phone: [facility] Work Phone: 12-18-2021 21:51-0400 Diastolic blood pressure 70 mm[Hg] Dr. Merary Jacobsen Work Phone: [facility] Work Phone: 12-18-2021 21:51-0400 Systolic blood pressure 120 mm[Hg] Dr. Merary Jacobsen Work Phone: [facility] Work Phone: 12-18-2021 19:11-0400 Body height 157.[address] Merary Jacobsen Work Phone: [facility] Work Phone: 12-18-2021 19:11-0400 Body mass index (BMI) [Ratio] 29 kg/m2 Dr. Merary Jacobsen Work Phone: [facility] Work Phone: 12-18-2021 19:11-0400 Body temperature 97.5 [degF] Dr. Merary Jacobsen Work Phone: [facility] Work Phone: 12-18-2021 19:11-0400 Body weight 71.[address] Merary Jacobsen Work Phone: [facility] Work Phone: 12-18-2021 19:11-0400 Heart rate 102 /min Dr. Merary Jacobsen Work Phone: [facility] Work Phone: 12-18-2021 19:11-0400 Respiratory rate 14 /min Dr. Merary Jacobsen Work Phone: [facility] Work Phone: 12-18-2021 19:11-0400 SaO2% (BldA) [Mass fraction] 97 % Dr. Merary Jacobsen Work Phone: [facility] Work Phone: 12-01-2021 17:40-0400 Body temperature 98.7 [degF] Dr. Merary Jacobsen Work Phone: [facility] Work Phone: 12-01-2021 17:40-0400 Diastolic blood pressure 51 mm[Hg] Dr. Merary Jacobsen Work Phone: [facility] Work Phone: 12-01-2021 17:40-0400 Heart rate 63 /min Dr. Merary Jacobsen Work Phone: [facility] Work Phone: 12-01-2021 17:40-0400 Respiratory rate 16 /min Dr. Merary Jacobsen Work Phone: [facility] Work Phone: 12-01-2021 17:40-0400 SaO2% (BldA) [Mass fraction] 97 % Dr. Merary Jacobsen Work Phone: [facility] Work Phone: 12-01-2021 17:40-0400 Systolic blood pressure 132 mm[Hg] Dr. Merary Jacobsen Work Phone: [facility] Work Phone: 12-01-2021 09:00-0400 Body height 154.[address] Merary Jacobsen Work Phone: [facility] Work Phone: 12-01-2021 09:00-0400 Body mass index (BMI) [Ratio] 31.8 kg/m2 Dr. Merary Jacobsen Work Phone: [facility] Work Phone: 12-01-2021 09:00-0400 Body weight 76.[address] Merary Jacobsen Work Phone: [facility] Work Phone: 11-29-2021 16:41-0400 Body temperature 97.6 [degF] Dr. Merary Jacobsen Work Phone: [facility] Work Phone: 11-29-2021 16:41-0400 Diastolic blood pressure 50 mm[Hg] Dr. Merary Jacobsen Work Phone: [facility] Work Phone: 11-29-2021 16:41-0400 Heart rate 65 /min Dr. Merary Jacobsen Work Phone: [facility] Work Phone: 11-29-2021 16:41-0400 Respiratory rate 18 /min Dr. Merary Jacobsen Work Phone: [facility] Work Phone: 11-29-2021 16:41-0400 SaO2% (BldA) [Mass fraction] 100 % Dr. Merary Jacobsen Work Phone: [facility] Work Phone: 11-29-2021 16:41-0400 Systolic blood pressure 88 mm[Hg] Dr. Merary Jacobsen Work Phone: [facility] Work Phone: 11-29-2021 14:27-0400 Body height 154.[address] Merary Jacobsen Work Phone: [facility] Work Phone: 11-29-2021 14:27-0400 Body mass index (BMI) [Ratio] 31.1 kg/m2 Dr. Merary Jacobsen Work Phone: [facility] Work Phone: 11-29-2021 14:27-0400 Body weight 74.[address] Merary Jacobsen Work Phone: [facility] Work Phone: 11-16-2021 10:02-0400 Body height 157.[address] Merary Jacobsen Work Phone: [facility] Work Phone: 11-16-2021 10:02-0400 Body mass index (BMI) [Ratio] 31.3 kg/m2 Dr. Merary Jacobsen Work Phone: [facility] Work Phone: 11-16-2021 10:02-0400 Body weight 77.[address] Merary Jacobsen Work Phone: [facility] Work Phone: 11-16-2021 10:02-0400 Diastolic blood pressure 62 mm[Hg] Dr. Merary Jacobsen Work Phone: [facility] Work Phone: 11-16-2021 10:02-0400 Heart rate 76 /min Dr. Merary Jacobsen Work Phone: [facility] Work Phone: 11-16-2021 10:02-0400 Respiratory rate 18 /min Dr. Merary Jacobsen Work Phone: [facility] Work Phone: 11-16-2021 10:02 Systolic blood pressure 106 mm[Hg] Dr. Merary Jacobsen Work Phone: [facility] Work Phone: Encounters Encounter Date Encounter Type Care Provider Facility Start: 12-01-2024 ambulatory Al Friend NP Facil ity:[facility] Start: 07-25-2024 End: 07-25-2024 Emergency department patient visit MERARY JACOBSEN Facility:[facility] Start: 05-10-2024 End: 05-10-2024 Emergency department patient visit Merary Jacobsen Facility:[facility] Start: 06-18-2023 End: 06-18-[address] Merary Jacobsen Work Phone: [facility] Work Phone: Start: 06-18-2023 End: 06-18-[address] Merary Jacobsen Work Phone: [facility]-Radiology, [place] Work Phone: Start: 05-23-[address] Merary cabrales Work Phone: [facility]-Cardiovascular Services Work Phone: Start: 05-15-2023 End: 05-15-[address] Merary Jacobsen Work Phone: [facility] Work Phone: Start: 02-05-2023 End: 02-05-2023 ambulatory [facility] Work Phone: Start: 02-05-2023 End: 02-05-2023 Patient encounter procedure [facility]Laboratory, [place] Work Phone: Start: 10-01-2022 End: 10-01-[address] Merary Jacobsen Work Phone: [facility] Work Phone: Start: 09-24-2022 Non-patient / Non-visit Dr. Merary Jacobsen Work Phone: [facility] Start: 09-19-2022 End: 09-19-[address] Merary Jacobsen Work Phone: [facility] Work Phone: Start: 09-19-2022 End: 09-19-[address] Merary Jacobsen Work Phone: [facility]-Pulmonary Services/Neurology Start: 09-18-2022 End: 09-18-[address] Merary Jacobsen Work Phone: [facility] Work Phone: Start: 09-18-2022 End: 09-18-[address] Merary Jacobsen Work Phone: [facility]-Outpatient Breast Imaging Start: 09-05-2022 End: 09-05-[address] Merary Jacobsen Work Phone: [facility] Work Phone: Start: 09-05-2022 End: 09-05-[address] Merary Jacobsen Work Phone: [facility] Start: 05-07-2022 End: 05-07-[address] Merary Jacobsen Work Phone: [facility] Work Phone: Start: 05-07-2022 End: 05-07-[address] Merary Jacobsen Work Phone: [facility] Start: 04-05-2022 End: 04-05-[address] Merary Jacobsen Work Phone: [facility] Start: 02-15-2022 End: 02-15-[address] Merary Jacobsen Work Phone: [facility] Work Phone: Start: 02-15-2022 End: 02-15-[address] [facility] Start: 02-15-2022 End: 02-15-[address] Merary Jacobsen Work Phone: [facility] Start: 02-05-2022 End: 02-05-[address] Merary Jacobsen Work Phone: [facility] Work Phone: Start: 02-05-2022 End: 02-05-[address] Merary Jacobsen Work Phone: [facility] Start: 12-27-2021 End: 12-27-[address] Merary Jacobsen Work Phone: [facility] Work Phone: Start: 12-27-2021 End: 12-27-[address] Merary Jacobsen Work Phone: [facility] Start: 12-27-2021 End: 12-27-[address] Merary Jacobsen Work Phone: [facility] Start: 12-18-2021 End: 12-18-2021 Emergency department patient visit Dr. Merary Jacobsen Work Phone: [facility]-Emergency Department Start: 12-18-2021 End: 12-18-[address] Merary Jacobsen Work Phone: [facility] Work Phone: Start: 12-18-2021 End: 12-18-[address] Merary Jacobsen Work Phone: [facility] Start: 12-15-2021 End: 12-15-[address] Merary Jacobsen Work Phone: [facility] Work Phone: Start: 12-15-2021 End: 12-15-[address] Merary Jacobsen Work Phone: [facility] Start: 12-08-2021 End: 12-08-[address] Merary Jacobsen Work Phone: [facility] Work Phone: Start: 12-08-2021 End: 12-08-[address] Merary Jacobsen Work Phone: [facility] Start: 12-01-2021 Non-patient / Non-visit Dr. Merary Jacobsen Work Phone: [facility] Inpatient Physicians Start: 11-30-2021 Non-patient / Non-visit Dr. Merary Jacobsen Work Phone: [facility] Start: 11-30-2021 End: 12-01-2021 Non-patient / Non-visit Dr. Merary Jacobsen Work Phone: [facility] Inpatient Physicians Start: 11-29-2021 Non-patient / Non-visit Dr. Merary Jacobsen Work Phone: [facility] Inpatient Physicians Start: 11-29-2021 End: 12-01-2021 Evaluation and management of inpatient Dr. Merary Jacobsen Work Phone: [facility]-Progressive Care Unit Start: 11-29-2021 Non-patient / Non-visit Dr. Merary Jacobsen Work Phone: [facility] Start: 11-29-2021 End: 11-29-[address] Merary Jacobsen Work Phone: [facility]-Cardiovascular Services Start: 11-24-2021 End: 11-24-[address] Merary Jacobsen Work Phone: [facility] Work Phone: Start: 11-24-2021 End: 11-24-[address] [facility] Start: 11-17-2021 End: 11-17-[address] [facility] Start: 11-16-2021 End: 11-16-[address] Merary Jacobsen Work Phone: [facility] Start: 11-15-2021 End: 11-15-[address] Merary Jacobsen Work Phone: [facility] Start: 03-10-2020 End: 03-10-2020 Subsequent hospital visit by physician George Ibarra (Open/1t) Work Phone: [facility] Comment on above: Canceled (Pt cx: Res cheduled) Start: 02-25-2020 End: 02-25-2020 Patient encounter procedure External Provider [facility] Start: 02-25-2020 Results Only External Provider Exter nal-NonCCF Procedures Date Procedure Procedure Detail Performing Clinician Start: 06-18-2023 Plain X-ray of shoulder Dr. Merary Jacobsen Work Phone: Start: 06-18-2023 Plain X-ray of clavicle Dr. Merary Jacobsen Work Phone: Start: 09-18-2022 Screening mammography Aidan Jacobsen Work Phone: Start: 12-01-[address] Merary cabrales Work Phone: Start: 11-30-2021 US scan of gallbladder Dr. Merary Jacobsen Work Phone: Start: 11-29-2021 CT of abdomen and pe lvis without contrast Dr. Merary Jacobsen Work Phone: Start: 11-24-2021 Plain chest X-ray Dr. Heather Jacobsen Work Phone: Start: 02-25-2020 EXTERNAL IMAGING [employer] Specialist al Provider Start: 06-08-2015 Mammography External P rovider Clostridium difficil e detection Dr. Merary Jacobsen Work Phone: Enteric Bacteriology Dr. Merary Jacobsen Work Phone: [facility] [place] parasites identification Dr. Merary Jacobsen Work Phone: Plan of Treatment Date Care Activity Detail Author Start: 02-15-2022 Celiac disease screen [facility] Work Phone: Start: 02-15-2022 IgA [Mass/volume] in Serum or Plasma [facility] Work Phone: Start: 02-15-2022 IgE [Units/volume] in Serum or Plasma [facility] Work Phone: Start: 02-15-2022 IgG [Mass/volume] in Serum or Plasma [facility] Work Phone: Start: 02-15-2022 IgM [Mass/volume] in Serum or Plasma [facility] Work Phone: Start: 12-01-2021 Patient discharge [facility] Work Phone: Start: 11-30-2021 Application of intermittent pneumatic compression device [facility] Work Phone: Start: 11-30-2021 [facility] Work Phone: Start: 11-29-2021 End: 11-30-2021 [facility] Work Phone: Start: 11-29-2021 Referral to gastroenterology service [facility] Work Phone: Start: 11-29-2021 Assessment of risk of venous thromboembolism [facility] Work Phone: Start: 11-29-2021 Inhalation therapy procedure [facility] Work Phone: Start: 11-29-2021 Insertion of catheter into peripheral vein [facility] Work Phone: Start: 11-29-2021 Measuring intake and output [facility] Work Phone: Start: 11-29-2021 Providing care according to standard [facility] Work Phone: Start: 11-29-2021 Provision of activity privileges [facility] Work Phone: Start: 11-29-2021 Referral to occupational therapist [facility] Work Phone: Start: 11-29-2021 Referral to service [facility] Work Phone: Start: 11-29-2021 Following clinical pathway protocol [facility] Work Phone: Start: 11-29-2021 Admission procedure [facility] Work Phone: Start: 11-29-2021 Verification routine [facility] Work Phone: Start: 11-29-2021 24 Hour ECG [facility] Work Phone: Start: 11-29-2021 Patient referral to dietitian [facility] Work Phone: Start: 12-08-2019 Influenza vaccination INFLUENZA (#1) [facility] Start: 2019 ADVANCE DIRECTIVE DISCUSSION ADVANCE DIRECTIVE DISCUSSION [facility] Start: 2019 BONE DENSITY BONE DENSITY [facility] Start: 2019 PNEUMOVAX AGE 65 AND OVER WITH 5YR LOOKBACK (#1) PNEUMOVAX AGE 65 AND OVER WITH 5YR LOOKBACK (#1) [facility] Start: 06-07-2016 Mammography MAMMOGRAM [facility] Start: 08-19-2014 DIABETES SCREEN DIABETES SCREEN [facility] Start: 2004 COLORECTAL CANCER SCREENING,SEE MODIFIER COLORECTAL CANCER SCREENING,SEE MODIFIER [facility] Start: 2004 Screening for malignant neoplasm of colon [facility] Start: 2004 SHINGRIX VACCINE (1 of 2) SHINGRIX VACCINE (1 of 2) [facility] Start: 1999 LIPID SCREEN LIPID SCREEN [facility] Start: 1973 Urine microalbumin profile DTAP,TDAP,TD (1 - Tdap) [facility] Start: 1972 ANNUAL PCP TEAM CHRONIC DISEASE VISIT ANNUAL PCP TEAM CHRONIC DISEASE VISIT [facility] Start: 1972 HEPATITIS C SCREENING HEPATITIS C SCREENING [facility] Start: 1972 HIV SCREENING HIV SCREENING [facility] Start: 1972 SPIROMETRY SPIROMETRY [facility] Start: 1966 Adult depression screening assessment DEPRESSION SCREENING [facility] [address] [facility] Work Phone: Giardia lamblia Ag [Presence] in Stool by Immunoassay [facility] Work Phone: IgA [Mass/volume] in Serum or Plasma [facility] Work Phone: IgE [Units/volume] i n Serum or Plasma [facility] Work Phone: IgG [Mass/volume] in Serum or Plasma [facility] Work Phone: IgM [Mass/volume] in Serum or Plasma [facility] Work Phone: Measurement of immunoglobulin A in serum specimen [facility] Work Phone: Ova and Parasites Ova and Parasites [facility] Work Phone: Ova and parasites id entified in Unspecified specimen by Light microscopy [facility] Work Phone: Patient Education ED Anemia, Typ e Not Specified (Adult) [facility] Work Phone: Patient referral [facility] Work Phone: Thyroid stimulating hormone measurement [facility] Work Phone: Tissue transglutamin ase IgA Ab [Units/volume] in Serum [facility] Work Phone: US [facility] Work Phone: [facility] Payers Date Payer Category Payer Self-pay [id number] 2019 Medicare MEDICARE MEDICAR E A AND B [id number] 2019-Present [place] [id number] 2019 Unknown [employer] BLUE CARD PPO [id number] 2019-Present PPO [id number] 2019 Medicare [id number] 2019 Unknown [id number] Unknown [id number] Unknown [id number] Social History Date Type Detail Facility Start: 08-20-2011 Tobacco smoking stat us UTIS Never smoker [facility] Start: 08-20-2011 Alcohol intake Current non-dr meat washer of alcohol (finding) [facility] Start: 1955 Sex Assigned At Not on file [facility] Exposure to SARS-CoV -2 (event) Not sure [facility] Start: 11-16-2021 End: 05-15-2023 Tobacco smoking status NHIS Unknown if ever smoked [facility] Start: 02-07-[address] [facility] Start: 1955 Sex Assigned At Female [facility] Goals Date Patient Goal Desired Activity /State Functional Status Date Assessment Result Facility 12-01-2021 Functional status Up ad teri [facility] Work Phone: Mental Status Date Assessment Result Facility 12-18-2021 Cognitive function Level Of Cons ciousness Awake;Alert;Appropriate;Follow s Commands [facility] Work Phone: 12-01-2021 Cognitive function Voice/Name [facility] Work Phone: 11-29-2021 Cognitive function Level Of Cons ciousness Awake;Alert;Appropriate;Follow s Commands [facility] Work Phone: Clinical Notes 04-28-2020 to 07-25-2024 Note Date & Type Note Facility 07-25-2024 Note HNO ID: [id number] Author: KYLE HUERTA RDMS Service: ? Author Type: Fly Setter Type: Progress Notes Filed: 07/25/2024 23:31 Note Text: Radiology Service Progress Note PATIENT NAME: Shiloh Brandon DATE OF SERVICE: July 25, 2024 TIME: 11:31 PM PATIENT IDENTITY VERIFICATION COMPLETED USING TWO (2) IDENTIFIERS: Name and Date of confirmed by patient verbally and Name and Date of confirmed by identification band. FALL SCREENING: Has the patient had 2 falls in the last year or 1 fall with injury or currently using an Ambulatory Assistive Device (Walker, Cane, Wheelchair, Crutches, etc.)? Emergency Room Patient: Screened in ED PATIENT GENDER DATA: Assigned female at . status: Unknown status: N/A PATIENT RELEVANT IMPLANT DATA REVIEWED: Not Applicable PATIENT PRESENTS WITH AN IMPLANTABLE OR ATTACHED SWEEP MOLDER: No RADIOLOGY DEPARTMENT: Ultrasound PERIPHERAL IV DATA: Not applicable SIGNED BY: Kyle Huerta RDMS July 25, 2024 11:31 PM [facility] 07-25-2024 Note HNO ID: [id number] Author: KEON SON RT(Ambar) Service: ? 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 28, 2020 chronic [facility] Work Phone: 1(803) 443-180601-21-2021 Evaluation note* Diagnosis Onset Date Resolution Status Fatigue acute Palpitations acute Non-ischemic cardiomyopathy chronic Nonsustained paroxysmal ventricular tachycardia Apruar 2020 chronic Acute kidney injury acute Anemia acute Dehydration acute Diarrhea acute Low blood pressure acute [facility] Work Phone: 1(112) 179-680601-21-2021 Evaluation note* Diagnosis Onset Date Resolution Status Fatigue acute Palpitations acute Non-ischemic cardiomyopathy chronic Nonsustained paroxysmal vent ricular tachycardia April 28, 2020 chronic Acute kidney injury resolved Dehydration resolved Diarrhea resolved Low blood pressure resolved [facility] Work Phone: 1(354) 601-722301-21-2021 Evaluation note* Diagnosis Onset Date Resolution Status Fatigue acute Palpitations acute Non-ischemic cardiomyopathy chronic Nonsustained paroxysmal vent ricular tachycardia April 28, 2020 chronic Acute kidney injury resolved Dehydration resolved Diarrhea resolved Low blood pressure resolved Tachycardia acute Non-ischemic cardiomyopathy chronic Nonsustained paroxysmal vent ricular tachycardia April 28, 2020 chronic [facility] Work Phone: 1(889) 634-177401-21-2021 Evaluation note* Diagnosis Onset Date Resolution Status Fatigue acute Palpitations acute Non-ischemic cardiomyopathy chronic Nonsustained paroxysmal vent ricular tachycardia April 28, 2020 chronic Anemia chronic Acute kidney injury resolved Dehydration resolved Diarrhea resolved Low blood pressure resolved Tachycardia acute Non-ischemic cardiomyopathy chronic Nonsustained paroxysmal vent ricular tachycardia April 28, 2020 chronic Anemia chronic 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 [facility] Work Phone: 1([phone]) 964-277501-21-2021 Evaluation note* Diagnosis Onset Date Resolution Status Anemia chronic 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 Tachycardia acute Non-ischemic cardiomyopathy chronic Nonsustained paroxysmal ventricular tachycardia r 2020 [facility] Work Phone: [phone]) 896-593801-21-2021 Evaluation note* Diagnosis Onset Date Resolution Status Chest discomfort acute Non-ischemic cardiomyopathy chronic Nonsustained paroxysmal ventricular tachycardia r 2020 [facility] Work Phone: [phone]) 643-626501-21-2021 Evaluation note* Diagnosis Onset Date Resolution Status Non-ischemic cardiomyopathy chronic Nonsustained paroxysmal ventricular tachycardia r 2020 [facility] Work Phone: Evaluation noteNo assessment information available [facility] Work Phone: Chief Complaint and Reason for Visit Chief Complaint 6 M FU Reason for Visit Fatigue Palpitations Non-ischemic cardiomyopathy Nonsustained paroxysmal ventricular tachycardia Chief Complaint 6 M FU Shortness of breath Reason for Visit Fatigue Palpitations Non-ischemic cardiomyopathy Nonsustained paroxysmal ventricular tachycardia Chief Complaint 6 M FU Shortness of breath PALP Reason for Visit Fatigue Palpitations Non-ischemic cardiomyopathy Nonsustained paroxysmal ventricular tachycardia Chief Complaint 6 M FU Shortness of breath PALP NELSON HYPERTENSION, DEHYDRATION, DIARRHEA Reason for Visit Fatigue Palpitations Non-ischemic cardiomyopathy Nonsustained paroxysmal ventricular tachycardia Chief Complaint 6 M FU Shortness of breath PALP NELSON HYPERTENSION, DEHYDRATION, DIARRHEA NELSON HYPERTENSION, DEHYDRATION, DIARRHEA NELSON HYPERTENSION, DEHYDRATION, DIARRHEA NELSON HYPERTENSION, DEHYDRATION, DIARRHEA NELSON HYPERTENSION, DEHYDRATION, DIARRHEA Reason for Visit Fatigue Palpitations Non-ischemic cardiomyopathy Nonsustained paroxysmal ventricular tachycardia Acute kidney injury Anemia Dehydration Diarrhea Low blood pressure Chief Complaint 6 M FU Shortness of breath PALP NELSON HYPERTENSION, DEHYDRATION, DIARRHEA NELSON HYPERTENSION, DEHYDRATION, DIARRHEA NELSON HYPERTENSION, DEHYDRATION, DIARRHEA NELSON HYPERTENSION, DEHYDRATION, DIARRHEA NELSON HYPERTENSION, DEHYDRATION, DIARRHEA Reason for Visit Fatigue Palpitations Non-ischemic cardiomyopathy Nonsustained paroxysmal ventricular tachycardia Acute kidney injury Dehydration Diarrhea Low blood pressure Chief Complaint 6 M FU Shortness of breath PALP NELSON HYPERTENSION, DEHYDRATION, DIARRHEA NELSON HYPERTENSION, DEHYDRATION, DIARRHEA NELSON HYPERTENSION, DEHYDRATION, DIARRHEA NELSON HYPERTENSION, DEHYDRATION, DIARRHEA NELSON HYPERTENSION, DEHYDRATION, DIARRHEA NELSON HYPERTENSION, DEHYDRATION, DIARRHEA abn labs Reason for Visit Fatigue Palpitations Non-ischemic cardiomyopathy Nonsustained paroxysmal ventricular tachycardia Acute kidney injury Dehydration Diarrhea Low blood pressure Chief Complaint 6 M FU Shortness of breath PALP NELSON HYPERTENSION, DEHYDRATION, DIARRHEA NELSON HYPERTENSION, DEHYDRATION, DIARRHEA NELSON HYPERTENSION, DEHYDRATION, DIARRHEA NELSON HYPERTENSION, DEHYDRATION, DIARRHEA NELSON HYPERTENSION, DEHYDRATION, DIARRHEA NELSON HYPERTENSION, DEHYDRATION, DIARRHEA abn labs 6 wk FU Reason for Visit Fatigue Palpitations Non-ischemic cardiomyopathy Nonsustained paroxysmal ventricular tachycardia Acute kidney injury Dehydration Diarrhea Low blood pressure Tachycardia Non-ischemic cardiomyopathy Nonsustained paroxysmal ventricular tachycardia Chief Complaint 6 M FU Shortness of breath PALP NELSON HYPERTENSION, DEHYDRATION, DIARRHEA NELSON HYPERTENSION, DEHYDRATION, DIARRHEA NELSON HYPERTENSION, DEHYDRATION, DIARRHEA NELSON HYPERTENSION, DEHYDRATION, DIARRHEA NELSON HYPERTENSION, DEHYDRATION, DIARRHEA NELSON HYPERTENSION, DEHYDRATION, DIARRHEA abn labs 6 wk FU ER FU E ORDER Reason for Visit Fatigue Palpitations Non-ischemic cardiomyopathy Nonsustained paroxysmal ventricular tachycardia Anemia Acute kidney injury Dehydration Diarrhea Low blood pressure Tachycardia Non-ischemic cardiomyopathy Nonsustained paroxysmal ventricular tachycardia Anemia Pancreatic rests in stomach Chief Complaint ER FU E ORDER 3 M FU Reason for Visit Anemia Pancreatic rests in stomach Tachycardia Non-ischemic cardiomyopathy Nonsustained paroxysmal ventricular tachycardia Chief Complaint SCREENING SYNCOPE Amb Documentation Chief Complaint SCREENING SYNCOPE Amb Documentation fup Reason for Visit Chest discomfort Non-ischemic cardiomyopathy Nonsustained paroxysmal ventricular tachycardia Chief Complaint EORDER Chief Complaint 6 M FU Palpitations..Abraham pain Reason for Visit Non-ischemic cardiom yopathy Nonsustained paroxysmal ventricular tachycardia Family History No Family History Records Found Relationship Condition Age at Onset Recorded Date/T mindy mother Cardiac disease Unknown uncle Cardiac disease Unknown Advance Directives No Advanced Directives Records Found Advance Directive Response Recorded Date/ Time Advance Directives No July 04 8:00am Living Will Yes February 21 12:24am Power of Game Producer No February 21, 2021 12:24am Advance Directive Response Recorded Date/ Time Advance Directives No July 04 8:00am Living Will Yes November 29 2:35pm Power of Game Producer Yes November 29 2:35pm Advance Directive Response Recorded Date/ Time Name of Medical Power of Game Producer Sariah lowe-daughter November 29, 2021 2:35pm Advance Directives No July 04 8:00am Living Will Yes November 29 2:35pm Power of Game Producer Yes November 29 2:35pm Advance Directive Response Recorded Date/ Time Name of Medical Power of Game Producer Sariah lowe November 29, 2021 5:19pm Advance Directives No July 04 8:00am Living Will Yes November 29 5:19pm Power of Game Producer Yes November 29 5:19pm Advance Directive Response Recorded Date/ Time Name of Medical Power of Game Producer Sariah lowe November 29, 2021 5:19pm Name of Medical Power of Game Producer SARIAH LOWE December 18, 2021 8:46pm Advance Directives No July 04 8:00am Living Will Yes December 18, 2021 8:46pm Power of Game Producer Yes December 8:46pm Advance Directive Response Recorded Date/ Time Name of Medical Power of Game Producer Sariah lowe November 29, 2021 4:19pm Name of Medical Power of Game Producer SARIAH LOWE December 18, 2021 7:46pm Advance Directives No July 04 7:00am Living Will Yes December 18, 2021 7:46pm Power of Game Producer Yes December 7:46pm Advance Directive Response Recorded Date/ Time Advance Directives No July 04 7:00am Living Will Yes Genie 12th, 2022 7:46pm Power of Game Producer Yes December 7:46pm Advance Directive Response Recorded Date/ Time Advance Directives No July 04, 021 8:00am Living Will Yes December 18, 2021 8:46pm Power of Game Producer Yes December 8:46pm Summary Purpose Additional Source Comments Source Comments (unrecognize d section and content) In the event this informatio n is protected by the Federal Confidentiality of Alcohol and Drug Abuse Patient Records regulations: The Federal rules restrict any use of the information to criminally investigate or prosecute any alcohol or drug abuse patient.[facility] the event this information is protected by the Federal Confidentiality of Alcohol and Drug Abuse Patient Records regulations: The Federal rules restrict any use of the information to criminally investigate or prosecute any alcohol or drug abuse patient.[facility] Goals (unrecognized section and content) Goals may be documented in a n alternate sectionGoals may be documented in an alternate sectionGoals may be documented in an alternate sectionGoals may be documented in an alternate sectionGoals may be documented in an alternate sectionGoals may be documented in an alternate sectionGoals may be documented in an alternate sectionGoals may be documented in an alternate sectionGoals may be documented in an alternate sectionGoals may be documented in an alternate section Care Teams (unrecognized sec tion and content) Team Status: Active Member Role Status Dates Dr. Merary Jacobsen MD Family Provider Active Dr. Merary Jacobsen MD Primary Care Provider Active Team Status: Inactive Member Role Status Dates Dr. Merary Jacobsen MD Primary Care Provider, Referrin g Provider Active Dr. Marcio aRy DO Attending Provider Active Team Status: Inactive Member Role Status Dates Dr. Merary Jacobsen MD Primary Care Provider, Referrin g Provider Active Delvin Siddiqui UNDERWRITING ANALYST, UNDERWRITING ANALYST-C Attending Provider Active Team Status: Inactive Member Role Status Dates Dr. Merary Jacobsen MD Primary Care Provider, Attendin g Provider Active Team Status: Inactive Member Role Status Dates Dr. Merary Jacobsen MD Primary Care Provider Active Dr. Marcio Ray DO Attending Provider Active Team Status: Active Member Role Status Dates Dr. Merary Jacobsen MD Primary Care Provider Active Delvin Siddiqui UNDERWRITING ANALYST, UNDERWRITING ANALYST-C Attending Provider Active Team Status: Active Member Role Status Dates Dr. Merary Jacobsen MD Primary Care Provider, Attendin g Provider Active Team Status: Inactive Member Role Status Dates Dr. Merary Jacobsen MD Primary Care Prov ider, Attending Provider, Referring Provider Active Team Status: Active Member Role Status Dates Dr. Merary Jacobsen MD Primary Care Provider Active Delvin Siddiqui UNDERWRITING ANALYST, UNDERWRITING ANALYST-C Attending Provider, Referring Pro vider Active Team Status: Inactive Member Role Status Dates Dr. Merary Jacobsen MD Primary Care Provider Active Delvin Siddiqui UNDERWRITING ANALYST, UNDERWRITING ANALYST-C Attending Provider, Referring Pro vider Active Team Status: Inactive Member Role Status Dates Dr. Merary Jacobsen MD Primary Care Provider, Referrin g Provider Active Karyn Abraham UNDERWRITING ANALYST, UNDERWRITING ANALYST-C Attending Provider Active Team Status: Active Member Role Status Dates Dr. Merary Jacobsen MD Primary Care Provider Active Karyn Abraham UNDERWRITING ANALYST, UNDERWRITING ANALYST-C Attending Provider Active INFORMATION SOURCE (unrecogn ized section and content) DATE CREATED AUTHOR 07/27/2024 [facility] DATE CREATED AUTHOR AUTHOR'S ORGANIZ ATION 11/27/2024 [facility] FOR RECORDS PERTAINING TO PATIENTS WHO [...] BE BASED ON THE PRIMARY CLINICAL RECORDS. [facility]. provides no warranty or guarantee of the accuracy or completeness of information in this document.
--- NOTE | 2024-12-01 07:28 | BD_ITS ---
PROCEDURE: DEXA BONE DENSITY STUDY 12/01/2024 REASON FOR EXAM: F, age 69 y/o . Postmenopausal. TECHNIQUE: DEXA BONE DENSITY STUDY COMPARISON: Prior study dated August 02, 2016. FINDINGS: BMD and T-SCORES Lumbar spine: 1.003 g/cm2, T-score -0.4 Levels: L1 through L4 Change from prior: Loss of 4.7%. Left femoral neck: 0.570 g/cm2, T-score -2.5 Femoral neck comparison data not recommended for monitoring change. Left total hip: 0.931 g/cm2, T-score -0.1 Change from prior: Loss of 9%. Right femoral neck: 0.585 g/cm2, T-score -2.4 Femoral neck comparison data not recommended for monitoring change. Right total hip: 0.944 g/cm2, T-score 0.0 Change from prior: Loss of 4.4%. FRAX Score: 10 year fracture risk: Major osteoporotic fracture: 14% Hip fracture: 3.3% BD/Dexa Bone Density Study IMPRESSION: Osteopenia. Reading Location: [id number]
== END | disposition home or self-care (01) ==
PROVIDERS: PCP Family Medicine
DX: Z12.31 Encounter for screening mammogram for malignant neoplasm of breast (principal); Z13.820 Encounter for screening for osteoporosis
CPT/HCPCS: 77063; 77067; 77080

== ENCOUNTER → 2024-12-10 | Outpatient (CLI) | payer BC, MEDICARE, SELFPAY ==
--- NOTE | 2024-12-10 16:41 | RAD_ITS ---
PROCEDURE: KNEE 4 OR MORE VIEWS 12/10/2024 REASON FOR EXAM: KNEE PAIN TECHNIQUE: Procedure Code: RADKN Modality: DX Procedure: KNEE 4 OR MORE VIEWS Laterality: None COMPARISON: 05/10/2024 FINDINGS: There is mild medial compartment joint space narrowing. There is no acute fracture noted. There is mild lateral patellar tilt and spurring. There is a moderate-sized joint effusion. RAD/Knee 4 or More Views IMPRESSION: Joint effusion and degenerative change as detailed above. No acute fracture no anay. Reading Location[facility]
== END | disposition home or self-care (01) ==
LOC: MTRAD 16:38
PROVIDERS: PCP Family Medicine
DX: M25.562 Pain in left knee (principal)
CPT/HCPCS: 73564